=== PATIENT | female | born 1980 | race Hispanic/Latino ===

== ENCOUNTER 2018-09-06 12:07 | Emergency (ER) | payer OTHER ==
[2018-09-06 12:46] LABS: Absolute Lymphocytes (CBC) 1.3 K/uL (0.7-4.9); Basophils % 0.6 % (0-1.3); Eosinophils % 1.4 % (0-4.4); Hematocrit 41.5 % (36.0-45.0); Lymphocytes % 17.9 % (15.3-44.8); MPV 7.9 fL (7.6-11.3); Monocytes % 5.4 % (3.3-12.3); RBC Red Blood Cell Count 4.68 M/uL (3.86-4.86)
[2018-09-06 13:23] LABS: BUN Blood Urea Nitrogen 9 mg/dL (7-18); Bicarbonate 23 mmol/L (21-32); Glucose Level 100 mg/dL (74-106); HCG, Quantitative 2978 mIU/mL (1-3); Potassium 3.7 mmol/L (3.5-5.1); Sodium Level 141 mmol/L (136-145)
[2018-09-06] MEDS ORDERED: NA CHLORIDE 0.9% 1,000 ML ONE (13:54)
--- NOTE | 2018-09-06 14:53 | RAD REPORT ---
EXAM DESCRIPTION: US - Transvaginal OB - 09/06/2018 1:16 pm CLINICAL HISTORY: with vaginal bleeding COMPARISON: None. FINDINGS: The uterus 9 x 5 x 5 centimeters. The endometrial stripe measures 10 millimeters. A gesta tional sac is not seen. A 4 centimeter right ovarian cyst. Left ovary was not seen. An adnexal mass is not displayed at No significant free fluid IMPRESSION: Nonvisualization of a gestational sac within the endometrium with a small amount of free fluid. These findings could represent an early intrauterine in which the gestational sac is not se en. and even an ectopic can also result in this appearance. This all should be cor related clinically and with serial beta HCG levels. Followup endovaginal sonogram in 1 week recommend ed
[2018-09-06 15:00] LABS: Urine Blood 3+ (NEG); Urine Glucose NEGATIVE (NEG); Urine Protein TRACE (NEG); Urine Specific Gravity 1.015 (1.005-1.030)
--- NOTE | 2018-09-06 15:11 | ER ---
Nurse's Notes [facility] Name: Ryanne Trevizo Age: 38 yrs Sex: Female : 1980 Arrival Date: 09/06/2018 Time: 12:10 Bed 19 Private MD: Diagnosis: related conditions, unspecified, first trimester;Threatened Presentation: 09/06 12:21 Presenting complaint: Patient states: Vaginal bleeding that began 5 days ago. Pt ss reports she is approximately 10 weeks . Transition of care: patient was not received from another setting of care. Onset of symptoms was September 01, 2018. Risk Assessment: Do you want to hurt yourself or someone else? Patient reports no desire to harm self or others. Initial Sepsis Screen: Does the patient have a suspected source of infection? No. Patient's initial sepsis screen is negative. Care prior to arrival: None. 12:21 Method Of Arrival: Ambulatory ss 12:21 Acuity: GAUDENCIO 3 ss 12:30 Initial Sepsis Screen: Does the patient meet any 2 criteria? No. Patient's initial hj sepsis screen is negative. Does the patient have a suspected source of infection?. Triage Assessment: 12:30 General: Appears in no apparent distress. uncomfortable, Behavior is calm, cooperative, hj appropriate for age. Pain: Complains of pain in abdomen. : Reports vaginal bleeding that is with clots, heavy flow. 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 - Social history:: Smoking status: Patient/guardian denies using tobacco, Patient/guardian denies using alcohol. - Ebola Screening: : Patient negative for fever greater than or equal to 101.5 degrees Fahrenheit, and additional compatible Ebola Virus Disease symptoms Patient denies exposure to infectious person Patient denies travel to an Ebola-affected area in the 21 days before illness onset. Screenin:30 Abuse screen: Denies threats or abuse. Denies injuries from another. Nutritional hj screening: No deficits noted. Tuberculosis screening: No symptoms or risk factors identified. Fall Risk None identified. Assessment: 12:29 Reassessment: Assisted patient in ER lobby restroom. Changed into gown as underwear and ss sushant had blood that leaked through. Pt reports cramping and back pain before passing large blood clot in toilet. Pt is thankful for care received, is tearful. Respirations remain even and unlabored. 15:28 Obstetrical Assessment: N/A. hj Vital Signs: 12:30 BP 104 / 78; Pulse 96; Resp 18; Temp 98.3(O); Pulse Ox 100% on R/A; Weight 88 kg; hj Height 5 ft. 4 in. (162.56 cm); Pain 5/10; 13:30 BP 108 / 75; Pulse 92; Resp 18; Pulse Ox 100% on R/A; hj 14:30 BP 120 / 75; Pulse 89; Resp 18; Pulse Ox 100% on R/A; hj 15:27 BP 110 / 80; Pulse 90; Resp 18; Pulse Ox 100% on R/A; hj 12:30 Body Mass Index 33.30 (88.00 kg, 162.56 cm) hj Vitals: 15:25 Heart Tones . ED Course: 12:10 Patient arrived in ED. mr 12:21 Arm band placed on right wrist. ss 12:23 Ricardo Harp PA is PHCP. cp 12:23 Jerald Rivera MD is Attending Physician. cp 12:29 Triage completed. ss 12:30 Alex Sosa, LIVIA is Primary Nurse. hj 12:30 Patient has correct armband on for positive identification. Placed in gown. Bed in low hj position. Call light in reach. Side rails up X 1. 12:30 Initial lab(s) drawn, by me, sent to lab. T\T\S collected, blood band applied to patient. hj Inserted saline lock: 20 gauge in left antecubital area, using aseptic technique. Blood collected. 13:17 Transvaginal OB US In Process Unspecified. EDMS 14:42 Urine collected: clean catch specimen, blood tinged. 3 15:09 Jose Breen MD is Referral Physician. cp 15:25 No provider procedures requiring assistance completed. IV discontinued, intact, hj bleeding controlled, No redness/swelling at site. Pressure dressing applied. Administered Medications: 13:36 Drug: NS 0.9% 1000 ml Route: IV; Rate: 1 bolus; Site: left antecubital; hj 15:00 Follow up: IV Status: Completed infusion; IV Intake: 1000ml hj Point of Care Testing: Urine : 15:26 hCG Reading: Positive; hj Intake: 15:00 IV: 1000ml; Total: 1000ml. hj Outcome: 15:10 Discharge ordered by MD. cp 15:26 Discharged to home ambulatory, with family. hj 15:26 Condition: stable 15:26 Discharge instructions given to patient, family, Instructed on discharge instructions, follow up and referral plans. medication usage, Demonstrated understanding of instructions, follow-up care, medications, Prescriptions given X 1. 15:30 Patient left the ED. Signatures: Dispatcher [employer] Bailey Chaudhari mr Brooklynn Lindsay RN RN Alex Sosa RN RN Ricardo Harp PA PA cp [place], [place] [id number]
--- NOTE | 2018-09-06 15:11 | EDPHYS ---
Physician Documentation [facility] Name: Ryanne Trevizo Age: 38 yrs Sex: Female : 1980 Arrival Date: 09/06/2018 Time: 12:10 Bed 19 Private MD: ED Physician Jerald Rivera HPI: 09/06 12:35 This 38 yrs old Female presents to ER via Ambulatory with complaints of cp Vaginal Bleeding, + Preg <12wks. 12:35 The patient presents to the emergency department with abdominal pain, that started cp today, described as crampy, vaginal bleeding, with clots. course: care: none, Leakage of Fluid: none appreciated, Ultrasound: the patient has not had an ultrasound. Previous pregnancies: in previous pregnancies patient has had no complications. 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 - Social history:: Smoking status: Patient/guardian denies using tobacco, Patient/guardian denies using alcohol. - Ebola Screening: : Patient negative for fever greater than or equal to 101.5 degrees Fahrenheit, and additional compatible Ebola Virus Disease symptoms Patient denies exposure to infectious person Patient denies travel to an Ebola-affected area in the 21 days before illness onset. ROS: 12:45 Constitutional: Negative for body aches, chills, fever, poor PO intake. cp 12:45 Eyes: Negative for injury, pain, redness, and discharge. cp 12:45 ENT: Negative for drainage from ear(s), ear pain, sore throat, difficulty swallowing, difficulty handling secretions. 12:45 Cardiovascular: Negative for chest pain, palpitations. 12:45 Respiratory: Negative for cough, shortness of breath, wheezing. 12:45 Abdomen/GI: Positive for abdominal pain, of the right lower quadrant and left lower quadrant, Negative for vomiting, diarrhea, constipation, black/tarry stool, rectal bleeding. 12:45 : Positive for pelvic pain, vaginal bleeding. 12:45 Neuro: Negative for altered mental status, headache, syncope, weakness. 12:45 All other systems are negative. Exam: 12:55 Constitutional: The patient appears in no acute distress, alert, awake, non-toxic, well cp developed, well nourished, uncomfortable. 12:55 Head/Face: Normocephalic, atraumatic. cp 12:55 Eyes: Periorbital structures: appear normal, Conjunctiva: normal, no exudate, no injection, Sclera: no appreciated abnormality, Lids and lashes: appear normal, bilaterally. 12:55 ENT: External ear(s): are unremarkable, Nose: is normal, Mouth: Lips: moist, Oral mucosa: pink and intact, moist, Posterior pharynx: is normal, airway is patent, no erythema, no exudate. 12:55 Chest/axilla: Inspection: normal, Palpation: is normal, no crepitus, no tenderness. 12:55 Cardiovascular: Rate: normal, Rhythm: regular. 12:55 Respiratory: the patient does not display signs of respiratory distress, Respirations: normal, no use of accessory muscles, no retractions, no splinting, no tachypnea, labored breathing, is not present, Breath sounds: are clear throughout, no decreased breath sounds, no stridor, no wheezing. 12:55 Abdomen/GI: Inspection: abdomen appears normal, Bowel sounds: active, all quadrants, Palpation: soft, in all quadrants, moderate abdominal tenderness, in the suprapubic area, right lower quadrant and left lower quadrant, voluntary guarding, is elicited in the suprapubic area, right lower quadrant and left lower quadrant. 12:55 Back: pain, is absent, ROM is normal. 13:30 : Pelvic Exam: Speculum exam: mild bleeding, os that is closed, no tissue in cervix cp is seen, no tissue in vagina is seen. Vital Signs: 12:30 BP 104 / 78; Pulse 96; Resp 18; Temp 98.3(O); Pulse Ox 100% on R/A; Weight 88 kg; hj Height 5 ft. 4 in. (162.56 cm); Pain 5/10; 13:30 BP 108 / 75; Pulse 92; Resp 18; Pulse Ox 100% on R/A; hj 14:30 BP 120 / 75; Pulse 89; Resp 18; Pulse Ox 100% on R/A; hj 15:27 BP 110 / 80; Pulse 90; Resp 18; Pulse Ox 100% on R/A; hj 12:30 Body Mass Index 33.30 (88.00 kg, 162.56 cm) MDM: 12:25 Patient medically screened. 15:10 Data reviewed: vital signs, nurses notes, lab test result(s), radiologic studies, cp ultrasound. 15:10 Counseling: I had a detailed discussion with the patient and/or guardian regarding: the cp historical points, exam findings, and any diagnostic results supporting the discharge/admit diagnosis, lab results, radiology results, the need for outpatient follow up, an OB/Gyne specialist, to return to the emergency department if symptoms worsen or persist or if there are any questions or concerns that arise at home. Response to treatment: the patient's symptoms have markedly improved after treatment, VSS. Pain markedly improved and bleeding improved. Low suspicion for ectopic . Will discharge to home for continued monitoring. 09/06 12:26 Order name: Abo/rh Typing 09/06 12:26 Order name: Basic Metabolic Panel; Complete Time: 13:31 09/06 13:30 Interpretation: Normal except: CL 110. 09/06 12:26 Order name: CBC with Diff; Complete Time: 13:31 09/06 13:30 Interpretation: Normal except: PLT 412; JO% 74.7. 09/06 12:26 Order name: Quantitative Hcg; Complete Time: 13:31 09/06 13:30 Interpretation: HCGQ 2978; Reviewed. 09/06 12:26 Order name: ABO/RH typing; Complete Time: 13:58 EDMS 09/06 13:58 Interpretation: Reviewed. 09/06 14:48 Order name: Urine Dipstick--Ancillary (enter results); Complete Time: 12:34 bd 09/06 12:26 Order name: IV Saline Lock; Complete Time: 12:30 09/06 12:26 Order name: Labs collected and sent; Complete Time: 12:34 09/06 12:26 Order name: NPO; Complete Time: 12:30 09/06 12:26 Order name: Urine Dipstick-Ancillary (obtain specimen); Complete Time: 14:39 cp 09/06 12:26 Order name: Urine Test (obtain specimen); Complete Time: 14:38 cp 09/06 12:39 Order name: Transvaginal OB US; Complete Time: 15:01 09/06 14:48 Order name: Urine --Ancillary (enter results); Complete Time: 12:34 bd 09/06 12:29 Order name: Pelvic Exam Setup; Complete Time: 12:41 09/06 12:45 Order name: Labs - recollect needed; Complete Time: 12:54 bd Administered Medications: 13:36 Drug: NS 0.9% 1000 ml Route: IV; Rate: 1 bolus; Site: left antecubital; 15:00 Follow up: IV Status: Completed infusion; IV Intake: 1000ml Point of Care Testing: Urine : 15:26 hCG Reading: Positive; Disposition: 15:51 Co-signature as Attending Physician, Jerald Rivera MD. rn Disposition: 09/06/18 15:10 Discharged to Home. Impression: related conditions, unspecified, first trimester, Threatened . - Condition is Stable. - Discharge Instructions: Threatened Miscarriage, Vaginal Bleeding During , First Trimester, Pelvic Rest. - Prescriptions for Vitamin 27- 0.8 mg Oral Tablet - take 1 tablet by ORAL route once daily; 60 tablet. - Medication Reconciliation Form, Thank You Letter, Antibiotic Education, Prescription Opioid Use form. - Follow up: Jose Breen MD; When: 48 Hours; Reason: Repeat Beta-HCG (48 Hours). - Problem is new. - Symptoms have improved. Signatures: Dispatcher [employer] [facility] Mariya Kerr Roman, MD MD rn Joaquin, Henry, RN RN hj Page, Corey, PA PA cp Corrections: (The following items were deleted from the chart) 15:30 15:10 09/06/2018 15:10 Discharged to Home. Impression: related conditions, hj unspecified, first trimester; Threatened . Condition is Stable. Forms are Medication Reconciliation Form, Thank You Letter, Antibiotic Education, Prescription Opioid Use. Follow up: Jose Breen; When: 48 Hours; Reason: Repeat Beta-HCG (48 Hours). Problem is new. Symptoms have improved. cp
== END 2018-09-06 15:30 | disposition home or self-care (01) ==
LOC: ER 12:07
DX: O20.0 Threatened abortion (principal); Z3A.10 10 weeks gestation of pregnancy
CPT/HCPCS: 36415; 76817; 80048; 81003; 81025; 84702; 85025; 86900; 86901; 88305; 96360; 99284; J7030

== ENCOUNTER 2019-08-28 05:02 | Emergency (ER) | payer OTHER ==
--- OUTSIDE RECORDS SUMMARY | 2019-08-28 05:05 | XMS REPORT | Continuity of Care Document ---
:1980 Author Organization [facility] t Address [address] [place] [address] Care Team Providers Name Role Phone Ulises Angelo Attending Clinician Abel MANZANO, F Attending Clinician Javed Stephenson RN Attending Clinician Unavailable Doctor Unassigned, Name Attending Clinician Unavailable Abel MANZANO, F Admitting Clinician Problems This patient has no known problems. Allergies, Adverse Reactions, Alerts This patient has no known allergies or adverse reactions. Medications This patient has no known medications. Procedures This patient has no known procedures. 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 [id number] [facility] [id number] MATERNAL [id number] & CHILD [address] [facility] 2019-08-09 2019-08-09 Telephone SOLANGE Chamorro [id number] 00:00:00 00:00:00 Agnieszka Montgomery LEATHER STRIPPING MACHINE OPERATOR [id number] [facility] [id number] MATERNAL [id number] & CHILD [address] [facility] 2019-08-05 2019-08-06 [facility] JOY Roman [id number] 04:41:00 16:40:00 Encounter Jd Albarran [facility] [id number] [facility]PITAL [id number] 2019-08-05 2019-08-05 Nurse Javed HAMILTON [id number] 00:00:00 00:00:00 Triage LV Stephenson [id number] [facility] [id number] 2019-08-04 2019-08-04 Routine Pedro Pablo [facility] [id number] 09:27:04 10:07:56 Roshunda R LEATHER STRIPPING MACHINE OPERATOR [id number] Visit [facility] [id number] MATERNAL [id number] & CHILD [address] [place] [address] 2019-08-04 2019-08-04 Orders Doctor JOY [id number] 00:00:00 00:00:00 Only UnassignedLV [id number] [place] [facility] [id number] [id number] Results This patient has no known results.
--- OUTSIDE RECORDS SUMMARY | 2019-08-28 05:05 | XMS REPORT | Summary of Care ---
:1980 Author Organization [facility] Address [address] [place] [address] Care Team Providers Name Role Phone Agnieszka Chamorro TYRE RETREADER Primary Care Provider Reason for Visit Reason Comments Care Encounter Details Date Type Department Care Team Description 06/14/2019 Routine [facility]- Agnieszka Chamorro upervision of high-risk of elderly multigravida (Primary Dx); Visit JOJO Oseguera AMA (advanced maternal age) multigravida 35+, first trimester; [address] [place] [address]; [place], [place] Need for Tdap vaccination; [id number] [place], [place] Obesity in [phone] Allergies No Known Allergiesdocumented as of this encounter (statuses as of 06/14/2019) Medications Medication Sig Dispensed Refills Start Date End Date Status vit Take 1 Packet by 30 Each 6 01/17/2019 Active 21-spaz-nnzdi-dha mouth daily. (SELECT-OB + DHA) 29 mg iron-1 mg -250 mg combo packIndications: Supervision of high-risk of elderly multigravida documented as of this encounter (statuses as of 06/14/2019) Active Problems Problem Noted Date Exposure to strep throat 03/01/2019 Rubella non-immune status, antepartum 01/06/2019 Overview: Address in Supervision of high-risk of elderly multigra sudhir 01/04/2019 AMA (advanced maternal age) multigravida 35+, first tr imester 01/04/2019 Obesity in 01/04/2019 Multiparity 01/04/2019 Estimated Date of Delivery Comments Yes 08/27/2019 Based on Ultrasound, FHT: 164, Transverse Presentation, Placen ta too early to evaluate, LIBBY: WNL documented as of this encounter (statuses as of 06/14/2019) Immunizations Name Administration Dates Next Due Influenza Virus Vaccine Quad .5 mL IM 6+ MO 02/01/2019 TDAP (ADACEL) VACCINE 06/14/2019 documented as of this encounter Social History Tobacco Use Types Packs/Day Years Used Date Never Smoker Smokeless Tobacco: Never Used Alcohol Use Drinks/Week oz/Week Comments Never Alcohol Habits Answer Date Recorded How often do you have a drink containing alcohol? Never 09/09/2018 How many drinks containing alcohol do you have on a typical Not asked day when you are drinking? How often do you have six or more drinks on one occasion? No t asked Estimated Date of Delivery Comments Yes 08/27/2019 Based on Ultrasound, FHT: 164, Transverse Presentation, Placen ta too early to evaluate, LIBBY: WNL Sex Assigned at Date Recorded Not on file Job Start Date Occupation Industry Not on file Not on file Not on file Travel History Travel Start Travel End No recent travel history available. documented as of this encounter Last Filed Vital Signs Vital Sign Reading Time Taken Comments Blood Pressure 123/74 06/14/2019 1:06 PM CDT Pulse 89 06/14/2019 1:06 PM CDT Temperature 36.1 C (97 F) 06/14/2019 1:06 PM CDT Respiratory Rate 16 06/14/2019 1:06 PM CDT Oxygen Saturation - - Inhaled Oxygen Concentration - - Weight 101.4 kg (223 lb 8 oz) 06/14/2019 1:06 PM CDT Height 162.6 cm (5' 4") 06/14/2019 1:06 PM CDT Body Mass Index 38.36 06/14/2019 1:06 PM CDT documented in this encounter Progress Notes Agnieszka Chamorro, JOJO - 06/14/2019 12:45 PM CDT Chief complaint: Chief Complaint Patient presents with Care HPI CC: Follow Up Visit Ryanne Trevizo is a 38 year old, , or [place] female. Patient's last menstrual period was 11/04/2018 (approximate). She is 29w3d with an intrauterine . Her estimated date of delivery is 08/27/2019, by Ultrasound. She has no complaints today. She reports +FM and d enies contractions, LOF and bleeding today. Will review labs and f/u as needed. OB/ER, PIH, PTL andmovement precautions given. Patient denies current or past physical, sexual or emotional abuse. Histories OB History Para Term AB Living 6 3 3 2 3 SAB TAB Ectopic Multiple Live Births 1 1 3 # Outcome Date GA Lbr Prabhu/2nd Weight Sex Delivery Anes PTL Lv 6 Current 5 SAB 08/2018 4 Term 10/26/17 38w0d 7 lb (3.175 kg) M VAGINAL LANI 3 Term 07/16/06 38w0d 7 lb (3.175 kg) M VAGINAL LANI 2 TAB 2005 1 Term 04/30/01 38w0d 8 lb (3.629 kg) F VAGINAL LANI Past Medical History: Diagnosis Date gestional diabetes 2007 Family History Problem Relation Age of Onset No Significant Medical Problems Mother Diabetes Maternal Aunt Diabetes Maternal Uncle Heart Maternal Grandfather Diabetes Maternal Grandfather Cancer Paternal Grandmother Family Status Relation Name Status Mo Alive Fa Alive Sis Alive Bro Alive MAunt Alive MUnc Alive PAunt Alive PUnc Alive MGMo Alive MGFa PGMo PGFa No past surgical history on file. Social History Socioeconomic History Marital status: Single Spouse name: Not on file Number of children: Not on file Years of education: Not on file Highest education level: Not on file Occupational History Not on file Social Needs Financial resource strain: Not on file Food insecurity: Worry: Not on file Inability: Not on file Transportation needs: Medical: Not on file Non-medical: Not on file Tobacco Use Smoking status: Never Smoker Smokeless tobacco: Never Used Substance and Sexual Activity Alcohol use: Never Frequency: Never Drug use: Never Sexual activity: Yes Partners: Male control/protection: None Comment: last sexual intercourse 01/03/2019 Lifestyle Physical activity: Days per week: Not on file Minutes per session: Not on file Stress: Not on file Relationships Social connections: Talks on phone: Not on file Gets together: Not on file Attends shinto service: Not on file Active member of club or organization: Not on file Attends meetings of clubs or organizations: Not on file Relationship status: Not on file Intimate partner violence: Fear of current or ex partner: Not on file Emotionally abused: Not on file Physically abused: Not on file Forced sexual activity: Not on file Other Topics Concern Not on file Social History Narrative Congregation preference none. Patient lives with fiance and child. Social History Substance and Sexual Activity Sexual Activity Yes Partners: Male control/protection: None Comment: last sexual intercourse 01/03/2019 Labs Labs are pending. Radiology No new radiology. Allergies Ryanne has No Known Allergies. Medications Ryanne has a current medication list which includes the following prescription(s): vit 81-fzym-ixltj-dha. Review of Systems Eyes: Negative for visual disturbance. Cardiovascular: Negative for leg swelling. Gastrointestinal: Negative for abdominal pain, nausea and vomiting. Genitourinary: Negative for vaginal bleeding, vaginal discharge and pelvic pain. Neurological: Negative for headaches. BP 123/74 (BP Location: Right arm, Patient Position: Sitting, BP CUFF SIZE: Adult Medium) | Pulse 89 | Temp 36.1 C (97 F) (Oral) | Resp 16 | Ht 5' 4" (1.626 m) | Wt 223 lb 8 oz (101.4 kg) | LMP 11/04/2018 (Approximate) | BMI 38.36 kg/m Pregravid BMI: 34.1 Physical Exam PHYSICAL: General Exam: Neurological: Normal Abdomen: Normal Extremities: Normal Pelvic Exam: Uterus: 32cm Weeks Assessment/Plan Supervision of high-risk of elderly multigravida (primary encounter diagnosis) AMA (advanced maternal age) multigravida 35+, first trimester Multiparity Comment: Routine Visit Plan: POCT URINALYSIS W SPECIFIC GRAVITY, HIV 1/2 AG-AB WITH REFLEX, GALV ONLY - SYPHILIS IGG/IGM Denies zika virus risk, signs and symptoms such as fever,rash,joint pain, conjunctivitis (red eyes), muscle pain, headaches; outside [place] travel to areas affected by zika, and FOB exposure to zika.Educated on use of mosquito repellent. Need for Tdap vaccination Comment: per protocol Plan: TDAP (ADACEL) IMMUNIZATION Obesity in Comment: BMI: 38.36 Plan: Patient encouraged to limit weight gain and advised to eat healthy diet, fruits, vegetables, increased fiber and water intake and protein low in fat. Encouraged exercise for 30 min everyday; begin regimen with caution to prevent injury. Encouraged to decrease BMI to <25. Return to clinic in 2 weeks via tele health. Discussed treatment options. Medications as ordered. Reviewed patient instructions and provided printed copy. This visit did not involve counseling and coordination that comprised more than 50% of the visit time. JOJO Patricio 06/14/2019 1:47 PM Camilla Colmenares RN - 06/14/2019 12:45 PM CDTPatient provided with 28 weeks packet; stressed the importance of the kick count of 10 x within 2 hours; patient verbalized understanding. Tdap given IM to right deltoid per aseptic tech; site massaged; band-aid applied; tolerated well; VIS given and reviewed with patient at this time. Shared decision plan completed today. Reviewed s/s of labor. PHQ2 done at this time. Patient denies any complications at this time. documented in this encounter Plan of Treatment Date Type Specialty Care Team Description 06/28/2019 Routine Visit [facility] Ulises Chamorro FNP [address] [place], [place] [address] [phone] Name Type Priority Associated Diagnoses Date/Ti me HIV 1/2 AG-AB WITH LAB Routine Supervision of high-ri sk 06/14/2019 1:07 PM CDT REFLEX of elderly multigravida GALV ONLY - SYPHILIS LAB Routine Supervision of high- risk 06/14/2019 1:07 PM CDT IGG/IGM of elderly multigravida Health Maintenance Due Date Last Done Comments DTaP,Tdap,and Td Vaccines (1 - 09/01/2019 P ostponed from 1993 Tdap) (Alternative Major delines) PAP SMEAR 09/09/2021 09/09/2018 INFLUENZA VACCINE Completed 02/01/2019 PNEUMOCOCCAL 0-64 YEARS COMBINED Aged Out No longer eligible based on SERIES patient's age to complete this topic documented as of this encounter Procedures Procedure Name Priority Date/Time Associated Diagnosis Comme nts POCT URINALYSIS Routine 06/14/2019 1:49 Supervision of Result s for this PM CDT high-risk procedur e are in of elderly the results multigravida section. TDAP (ADACEL) Routine 06/14/2019 1:08 Need for Tdap IMMUNIZATION PM CDT vaccination documented in this encounter Results POCT URINALYSIS W SPECIFIC GRAVITY (06/14/2019 1:49 PM CDT) Pathologist Sig nature POCT U SP GRAV . 1.005 - 1.025 mg/dl POCT PH U . 5 - 8 mg/dl POCT U LEUK EST . Negative - Negative POCT U NIT . Negative - Negative POCT U PROT 1+ Negative - Negative POCT U GLU negative Negative - Negative POCT U KETONE . Negative - Negative POCT U UROBILI . 0.2 - 1 mg/dl POCT U BILI . Negative - Negative POCT U BLD . Negative - Negative POCT U COLOR POCT U APPEAR Specimen Urine - URINE, CLEAN CATCH documented in this encounter Visit Diagnoses Diagnosis Supervision of high-risk of rodri flower multigravida - Primary AMA (advanced maternal age) multigravida 35+, first trimester [place]ip[place] Need for Tdap vaccination Need for prophylactic vaccination with c ombined cybhpxocxq-hayfvxk-rbsxrrlfv (DTP) vaccine Obesity in Obesity complicating , childbir th, or the puerperium, unspecified as to episode of care or not applicable documented in this encounter Insurance Payer Benefit Plan / Subscriber ID Effective Dates Phone Addre ss Type Group [facility] xxxxxxxxx 2019-[facility] Medicaid COMM PLAN - t MANAGED MEDICAID [id number] 1 documented as of this encounter Advance Directives Name Relationship Healthcare Agent Relationship Co mmunication [employer] [place] Life Partner Primary healthcare agent
--- OUTSIDE RECORDS SUMMARY | 2019-08-28 05:06 | XMS REPORT | Summary of Care ---
:1980 Author Organization [facility] Address [address] [place] [address] Care Team Providers Name Role Phone Agnieszka Chamorro [facility] Primary Care Provider Reason for Visit Reason Comments Appointment Tele Health Visit Encounter Details Date Type Department Care Team Description 07/14/2019 Telephone [facility]- Agnieszka Chamorro, Maxime pointment (Tele [facility] Visit ) [address] [facility] [address] [place], [place] [phone] Allergies No Known Allergiesdocumented as of this encounter (statuses as of 07/14/2019) Medications Medication Sig Dispensed Refills Start Date End Date Status vit Take 1 Packet by 30 Each 6 01/17/2019 Active 84-dgow-yqwbt-dha mouth daily. (SELECT-OB + DHA) 29 mg iron-1 mg -250 mg combo packIndications: Supervision of high-risk of elderly multigravida documented as of this encounter (statuses as of 07/14/2019) Active Problems Problem Noted Date Exposure to [...] as of this encounter (statuses as of 07/14/2019) Immunizations Name Administration Dates Next Due Influenza [...] of this encounter Last Filed Vital Signs Not on filedocumented in this encounter Plan of Treatment Date Type Specialty Care Team Description 08/02/2019 Barrel Burner Visit Maternal Medicine Health Maintenance Due Date Last Done Comments PAP SMEAR 09/09/2021 09/09/2018 DTaP,Tdap,and Td Vaccines (2 - Td) 06/13/2029 06/14/2019 INFLUENZA VACCINE Completed 02/01/2019 PNEUMOCOCCAL 0-64 YEARS COMBINED Aged Out No longer eligible based on SERIES patient's age to complete this topic documented as of this encounter Results Not on filedocumented in this encounter Insurance Payer Benefit Plan / Subscriber ID Effective Dates Phone Addre ss Type Group [facility] xxxxxxxxx 2019-[facility] Medicaid COMM PLAN - t MANAGED MEDICAID documented as of this encounter Advance Directives Name Relationship Healthcare Agent Relationship Co mmunication Theresa Duncan Life Partner Primary healthcare agent
--- OUTSIDE RECORDS SUMMARY | 2019-08-28 05:06 | XMS REPORT | Summary of Care ---
:1980 Author Organization [facility] Address [address] [place] [address] Care Team Providers Name Role Phone Agnieszka Chamorro Primary Care Provider Reason for Referral (Routine) Status Reason Specialty Diagnoses / Referred By Referred To Procedures Contact Contact New Request Maternal Diagnoses Supervision of high-risk of elderly multigravida Karime Chamorro Procedures CONSULT MATERNAL MEDICINE ULTRASOUND Preferred Location: JOJO Molina [address] [place] [address] Reason for Visit Reason Comments ROUTINE VISIT Tele Health Visit Encounter Details Date Type Department Care Team Description 06/28/2019 Telemedicine Visit [facility]- Agnieszka Chamorro Supervision of high-risk of elderly multigravida (Primary Dx); JOJO Oseguera AMA (advanced maternal age) multigravida 35+, first trimester; [address] [place] [address]; [place] [address] [place], [place] [phone] [address] Allergies No Known Allergiesdocumented as of this encounter (statuses as of 06/28/2019) Medications Medication Sig Dispensed Refills Start Date End Date Status vit Take 1 Packet by 30 Each 6 01/17/2019 Active 32-fdbn-ijioo-dha mouth daily. (SELECT-OB + DHA) 29 mg iron-1 mg -250 mg combo packIndications: Supervision of high-risk of elderly multigravida documented as of this encounter (statuses as of 06/28/2019) Active Problems Problem Noted Date Exposure to [...] as of this encounter (statuses as of 06/28/2019) Immunizations Name Administration Dates Next Due Influenza [...] Signs Not on filedocumented in this encounter Progress Notes Agnieszka Chamorro FNP - 06/28/2019 12:45 PM CDT Chief complaint: Chief Complaint Patient presents with ROUTINE VISIT Tele Health Visit TELEHEALTH NOTE Verbal consent obtained from Patient: Ryanne Trevizo and Care Provider: JOJO Patricio due to the COVID-19 pandemic for telehealth services provided below. Communication with patient was conducted via Telephone due to patient unable to obtain video call option. Location of Patient: Workplace Location of Provider: home Date of Service: 06/28/2019 Chief Complaint: Visit via Tele Health HPI: Ryanne Trevizo is a 38 year old female with Past Medical History: Diagnosis Date gestional diabetes 2007 ROS See Note TELEHEALTH EXAM Constitutional: Alert and no distress Respiratory: Breathing comfortably Neurology: Answers questions appropriately Psychological: Affect Normal After visit summary (AVS ) documentation will be available through [employer] [employer] for this encounter. A total of 15 minutes was spent on the Telephone with the patient. Agnieszka Chamorro, SOFTWARE ENGINEERING PROJECT MANAGER HPI CC: Follow Up Visit Ryanne Trevizo is a 38 year old, , or [place] female. Patient's last menstrual period was 11/04/2018 (approximate). She is 31w3d with an intrauterine . Her estimated date of delivery is 08/27/2019, by Ultrasound. She has no complaints today. She reports +FM and d enies contractions, LOF and bleeding today.Patient denies current or past physical, sexual or [...] file Gets together: Not on file Attends church service: Not on file Active member of [...] Concern Not on file Social History Narrative Lutheran preference none. Patient lives with fiance and child. Social History Substance and Sexual Activity Sexual Activity Yes Partners: Male control/protection: None Comment: last sexual intercourse 01/03/2019 Labs No new labs Radiology No new radiology. Allergies Ryanne has No Known Allergies. Medications Ryanne has a current medication list which includes the following prescription(s): vit 56-cowx-omzpi-dha. Review of Systems LMP 11/04/2018 (Approximate) Pregravid BMI: 34.1 Physical Exam See Tele Health Note Assessment/Plan Supervision of high-risk of elderly multigravida (primary encounter diagnosis) AMA (advanced maternal age) multigravida 35+, first trimester Multiparity Comment: Routine Visit Plan: CONSULT MATERNAL MEDICINE ULTRASOUND Preferred Location: [place] Denies zika virus risk, signs and symptoms such as fever,rash,joint pain, conjunctivitis (red eyes), muscle pain, headaches; outside [place] travel to areas affected by zika, and FOB exposure to zika.Educated on use of mosquito repellent. Obesity in Comment: See BMI Plan: Patient encouraged to limit weight gain and advised to eat healthy diet, fruits, vegetables, increased fiber and water intake and protein low in fat. Encouraged exercise for 30 min everyday; begin regimen with caution to prevent injury. Encouraged to decrease BMI to <25. Return to clinic in 2 weeks. Discussed treatment options. Medications as ordered. Reviewed patient instructions and provided printed copy. This visit did not involve counseling and coordination that comprised more than 50% of the visit time. JOJO Patricio 06/28/2019 12:43 PM documented in this encounter Plan of Treatment Date Type Specialty Care Team Description 07/14/2019 Telemedicine Visit [facility]ell[facility] Shirley Chamorro FNP [address] [place] [address] [phone] Health Maintenance Due Date Last Done Comments PAP SMEAR 09/09/2021 09/09/2018 DTaP,Tdap,and Td Vaccines (2 - Td) 06/13/2029 06/14/2019 INFLUENZA VACCINE Completed 02/01/2019 PNEUMOCOCCAL 0-64 YEARS COMBINED Aged Out No longer eligible based on SERIES patient's age to complete this topic documented as of this encounter Results Not on filedocumented in this encounter Visit Diagnoses Diagnosis Supervision of high-risk of rodri flower multigravida - Primary AMA (advanced maternal age) multigravida 35+, first trimester [place] Obesity in Obesity complicating , childbir th, or the puerperium, unspecified as to episode of care or not applicable documented in this encounter Insurance Payer Benefit Plan / Subscriber ID Effective Dates Phone Addre ss Type Group [facility] xxxxxxxxx 2019-[place] Medicaid COMM PLAN - t MANAGED MEDICAID [id number] 1 documented as of this encounter Advance Directives Name Relationship Healthcare Agent Relationship Co mmunication Theresa Duncan Life Partner Primary healthcare agent
--- OUTSIDE RECORDS SUMMARY | 2019-08-28 05:07 | XMS REPORT | Summary of Care ---
:1980 Author Organization [facility] Address [address] [place] [address] Care Team Providers Name Role Phone Agnieszka Chamorro [facility] Primary Care Provider Reason for Visit Reason Comments ULTRASOUND (Routine) Status Reason Specialty Diagnoses / Referred By Referred To Procedures Contact Contact Closed Maternal Diagnoses Supervision of high-risk of elderly multigravida Agnieszka Chamorro Medicine Procedures CONSULT MATERNAL MEDICINE ULTRASOUND Preferred Location: JOJO Oseguera [address] [place] [address] Encounter Details Date Type Department Care Team Description 08/02/2019 Pediatric Nephrologist Visit [facility] Jerry Cutler erly multigravida with antepartum condition or complication; Ultrasound- Vidal Bernabe MD Obesity complicating in third trimester [address] [place] [address] [facility] [place], [place] [id number] [place], [place] [phone] [id number] Allergies No Known Allergiesdocumented as of this encounter (statuses as of 08/02/2019) Medications Medication Sig Dispensed Refills Start Date End Date Status vit Take 1 Packet by 30 Each 6 01/17/2019 Active 18-etmw-hyqxx-dha mouth daily. (SELECT-OB + DHA) 29 mg iron-1 mg -250 mg combo packIndications: Supervision of high-risk of elderly multigravida documented as of this encounter (statuses as of 08/02/2019) Active Problems Problem Noted Date Exposure to [...] as of this encounter (statuses as of 08/02/2019) Immunizations Name Administration Dates Next Due Influenza [...] Travel End No recent travel history available. COVID-19 Exposure Response Date Recorded In the last month, have you been in contact with No / Unsure 08/02/2019 11:33 AM CDT someone who was confirmed or suspected to have Coronavirus / COVID-19? documented as of this encounter Last Filed Vital Signs Not on filedocumented in this encounter Plan of Treatment Date Type Specialty Care Team Description 08/04/2019 Routine Visit [facility] Satellites Ulises Chamorro, SENIOR ORACLE APPLICATIONS DEVELOPER [address] [place] [address] [phone] Health Maintenance Due Date Last Done Comments PAP SMEAR 09/09/2021 09/09/2018 DTaP,Tdap,and Td Vaccines (2 - Td) 06/13/2029 06/14/2019 INFLUENZA VACCINE Completed 02/01/2019 PNEUMOCOCCAL 0-64 YEARS COMBINED Aged Out No longer eligible based on SERIES patient's age to complete this topic documented as of this encounter Results Not on filedocumented in this encounter Visit Diagnoses Diagnosis Elderly multigravida with antepartum con dition or complication Obesity complicating in third trimester Obesity complicating , childbir th, or the puerperium, antepartum condition or complication documented in this encounter Insurance Payer Benefit Plan / Subscriber ID Effective Dates Phone Addre ss Type Group [facility] xxxxxxxxx 2019-[place] Medicaid COMM PLAN - t MANAGED MEDICAID [id number] 1 documented as of this encounter Advance Directives Name Relationship Healthcare Agent Relationship Co mmunication Theresa Duncan Life Partner Primary healthcare agent
--- OUTSIDE RECORDS SUMMARY | 2019-08-28 05:07 | XMS REPORT | Summary of Care ---
:1980 Author Organization [facility] [place] Address [address] [place] [address] Care Team Providers Name Role Phone Agnieszka Chamorro OTHER SPORTS COACH OR INSTRUCTOR Primary Care Provider Reason for Visit Reason Comments Care Encounter Details Date Type Department Care Team Description 07/28/2019 Routine [facility]- Agnieszka Chamorro upervision of high-risk of elderly multigravida (Primary Dx); Visit JOJO Oseguera AMA (advanced maternal age) multigravida 35+, first trimester; [address]; [place] [address] [place], [place] [phone] [address] Allergies No Known Allergiesdocumented as of this encounter (statuses as of 07/28/2019) Medications Medication Sig Dispensed Refills Start Date End Date Status vit Take 1 Packet by 30 Each 6 01/17/2019 Active 00-adzk-yrrim-dha mouth daily. (SELECT-OB + DHA) 29 mg iron-1 mg -250 mg combo packIndications: Supervision of high-risk of elderly multigravida documented as of this encounter (statuses as of 07/28/2019) Active Problems Problem Noted Date Exposure to [...] as of this encounter (statuses as of 07/28/2019) Immunizations Name Administration Dates Next Due Influenza [...] been in contact with No / Unsure 07/28/2019 7:52 AM CDT someone who was confirmed or suspected to have Coronavirus / COVID-19? documented as of this encounter Last Filed Vital Signs Vital Sign Reading Time Taken Comments Blood Pressure 118/78 07/28/2019 7:54 AM CDT Pulse 80 07/28/2019 7:54 AM CDT Temperature 36.6 C (97.8 F) 07/28/2019 7:54 AM CDT Respiratory Rate 16 07/28/2019 7:54 AM CDT Oxygen Saturation - - Inhaled Oxygen Concentration - - Weight 105.9 kg (233 lb 8 oz) 07/28/2019 7:54 AM CDT Height 162.6 cm (5' 4") 07/28/2019 7:54 AM CDT Body Mass Index 40.08 07/28/2019 7:54 AM CDT documented in this encounter Progress Notes Agnieszka Chamorro, JOJO - 07/28/2019 8:45 AM CDT Chief complaint: Chief Complaint Patient presents with Care HPI CC: Follow Up Visit Ryanne Trevizo is a 39 year old, , or [place] female. Patient's last menstrual period was 11/04/2018 (approximate). She is 35w5d with an intrauterine . Her estimated date of delivery is 08/27/2019, by Ultrasound. She has no complaints today. She reports +FM and d enies contractions, LOF and bleeding today. Reviewed OB/ER, PIH, labor and movement precautions. Encouraged patient to go to [facility] for any signs and symptoms of labor (regular contractions, LOF, vaginalbleeding or decrease movement. Patient denies current or past physical, sexual [...] (3.175 kg) M VAGINAL LANI 2 TAB 2004 1 Term 04/30/01 38w0d 8 lb (3.629 [...] file Gets together: Not on file Attends quaker service: Not on file Active member of [...] Concern Not on file Social History Narrative Adventist preference none. Patient lives with fiance and child. Social History Substance and Sexual Activity Sexual Activity Yes Partners: Male control/protection: None Comment: last sexual intercourse 01/03/2019 Labs Labs are pending. Radiology No new radiology. Allergies Ryanne has No Known Allergies. Medications Ryanne has a current medication list which includes the following prescription(s): vit 62-obfu-dmyyy-dha. Review of Systems Constitutional: Negative for activity change, appetite change, fatigue, unexpected weight change, weight gain and weight loss. HENT: Negative for sore throat. Eyes: Negative for visual disturbance. Respiratory: Negative for cough and shortness of breath. Breasts: Negative for discharge, mass, pain and unequal size. Cardiovascular: Negative for chest pain, palpitations and leg swelling. Gastrointestinal: Negative. Negative for abdominal pain, anal bleeding, blood in stool, constipation, diarrhea, nausea, rectal pain and vomiting. Genitourinary: Negative for bladder incontinence, dysuria, urgency, flank pain, vaginal bleeding, vaginal discharge, genital sores, vaginal pain and pelvic pain. Skin: Negative for color change and rash. Neurological: Negative. Negative for dizziness, syncope and headaches. Psychiatric/Behavioral: Negative for confusion, self-injury and sleep disturbance. The patient is not nervous/anxious. Hematological: Negative for cold intolerance and heat intolerance. Endocrine: Negative for hair loss, cold intolerance, heat intolerance, weight gain and weight loss. BP 118/78 (BP Location: Right arm, Patient Position: Sitting, BP CUFF SIZE: Adult Medium) | Pulse 80 | Temp 36.6 C (97.8 F) (Oral) | Resp 16 | Ht 5' 4" (1.626 m) | Wt 233 lb 8 oz (105.9 kg) |LMP 11/04/2018 (Approximate) | BMI 40.08 kg/m Pregravid BMI: 34.1 Physical Exam PHYSICAL: General Exam: Neurological: Normal Abdomen: Normal Extremities: Normal Pelvic Exam: Vagina: Child Welfare Counselor present for the exam: Camilla Colmenares RN Cervix: 2/50/-3 Membrane status: Intact Uterus: 38cm Weeks Assessment/Plan Supervision of high-risk of elderly multigravida (primary encounter diagnosis) AMA (advanced maternal age) multigravida 35+, first trimester [address] Comment: Routine Visit Plan: CBC WITH DIFF, GROUP B STREPTOCOCCUS BY PCR, CBC WITH DIFFERENTIAL, POCT URINALYSIS W SPECIFIC GRAVITY Denies zika virus risk, signs and symptoms such as fever,rash,joint pain, conjunctivitis (red eyes), muscle pain, headaches; outside [place] travel to areas affected by zika, and FOB exposure to zika. Educated on use of mosquito repellent. Covid x12 screening done, screening results are negative. Reviewed OB/ER, PIH, labor and movement precautions. Encouraged patient to go to [facility] for any signs and symptoms of labor (regular contractions, LOF, vaginal bleeding or decrease movement. Obesity in Comment: BMI: 40.08 Plan: Patient encouraged to limit weight gain and advised to eat healthy diet, fruits, vegetables, increased fiber and water intake and protein low in fat. Encouraged exercise for 30 min everyday; begin regimen with caution to prevent injury. Encouraged to decrease BMI to <25. Return to clinic in 4 weeks. Discussed treatment options. Medications as ordered. Reviewed patient instructions and provided printed copy. This visit did not involve counseling and coordination that comprised more than 50% of the visit time. JOJO Patricio 07/28/2019 8:34 AM documented in this encounter Plan of Treatment Date Type Specialty Care Team Description 08/02/2019 Machine Setter Visit Maternal Medicine 08/04/2019 Routine Visit OB Satellites Agnieszka Chamorro FNP [address] [address] [phone] Name Type Priority Associated Diagnoses Date/Ti me CBC WITH DIFF LAB Routine Supervision of high-risk 7:51 AM of elderly CDT multigravida GROUP B STREPTOCOCCUS BY LAB Routine Supervision of h igh-risk 07/28/2019 7:51 AM PCR of elderly CDT multigravida CBC WITH DIFFERENTIAL LAB Routine Supervision of high -risk 07/28/2019 7:51 AM of elderly CDT multigravida Health Maintenance Due Date Last Done Comments PAP SMEAR 09/09/2021 09/09/2018 DTaP,Tdap,and Td Vaccines (2 - Td) 06/13/2029 06/14/2019 INFLUENZA VACCINE Completed 02/01/2019 PNEUMOCOCCAL 0-64 YEARS COMBINED Aged Out No longer eligible based on SERIES patient's age to complete this topic documented as of this encounter Procedures Procedure Name Priority Date/Time Associated Diagnosis Comme nts POCT URINALYSIS Routine 07/28/2019 7:53 AM Supervision of Res ults for this CDT high-risk of whitney jaramilloe are in elderly multigravida the res ults section. documented in this encounter Results POCT URINALYSIS W SPECIFIC GRAVITY (07/28/2019 7:53 AM CDT) Pathologist Sig nature POCT U SP GRAV . 1.005 - 1.025 mg/dl POCT PH U . 5 - 8 mg/dl POCT U LEUK EST . Negative - Negative POCT U NIT . Negative - Negative POCT U PROT trcae Negative - Negative POCT U GLU neg Negative - Negative POCT U KETONE . [...] Type Group [facility] xxxxxxxxx 2019-Presen Medicaid COMM PLAN - t MANAGED MEDICAID [id number] 1 documented as of this encounter Advance Directives Name Relationship Healthcare Agent Relationship Co mmunication Theresa Dakota Life Partner Primary healthcare agent
--- OUTSIDE RECORDS SUMMARY | 2019-08-28 05:07 | XMS REPORT | Summary of Care ---
:1980 Author Organization [facility] Address [address] [place] [address] Care Team Providers Name Role Phone Agnieszka Chamorro CONTROL AREA OPERATOR Primary Care Provider Reason for Visit Reason Comments ROUTINE VISIT Tele Health Visit Encounter Details Date Type Department Care Team Description 07/21/2019 Telemedicine Visit [facility]- Agnieszka Chamorro Supervision of high-risk of elderly multigravida (Primary Dx); JOJO Oseguera AMA (advanced maternal age) multigravida 35+, first trimester; [address]; [place] [address] [place], [place] [phone] [address] Allergies No Known Allergiesdocumented as of this encounter (statuses as of 07/21/2019) Medications Medication Sig Dispensed Refills Start Date End Date Status vit Take 1 Packet by 30 Each 6 01/17/2019 Active 32-dljf-fdkst-dha mouth daily. (SELECT-OB + DHA) 29 mg iron-1 mg -250 mg combo packIndications: Supervision of high-risk of elderly multigravida documented as of this encounter (statuses as of 07/21/2019) Active Problems Problem Noted Date Exposure to [...] as of this encounter (statuses as of 07/21/2019) Immunizations Name Administration Dates Next Due Influenza [...] encounter Progress Notes Agnieszka Chamorro FNP - 07/21/2019 7:45 AM CDT Chief complaint: Chief Complaint Patient presents with ROUTINE VISIT Tele Health Visit TELEHEALTH NOTE Verbal consent obtained from Patient: Ryanne Trevizo and Care Provider: JOJO Patricio due to the COVID-19 pandemic for telehealth services provided below. Communication with patient was conducted via Telephone due to patient unable to obtain video call option. Location of Patient: Home Location of Provider: Clinic Date of Service: 07/21/2019 Chief Complaint: Routine Visit via Tele Health HPI: Ryanne Trevizo is a 39 year old female with Past Medical History: Diagnosis Date gestional diabetes 2006 ROS See Note TELEHEALTH EXAM Constitutional: Alert and no distress Respiratory: Breathing comfortably Neurology: Answers questions appropriately Psychological: Affect Normal After visit summary (AVS ) documentation will be available through [facility] for this encounter. A total of 15 minutes was spent on the Telephone due to patient unable to obtain video call option. Agnieszka Chamorro, JOJO HPI CC: Follow Up Visit Ryanne Trevizo is a 39 year old, , or [place] female. Patient's last menstrual period was 11/04/2018 (approximate). She is 34w5d with an intrauterine . Her estimated date of delivery is 08/27/2019, by Ultrasound. She has no complaints today. She reports +FM and d enies contractions, LOF and bleeding today. Patient denies current or past physical, sexual [...] Past Medical History: Diagnosis Date gestional diabetes 2006 Family History Problem Relation Age of Onset [...] file Gets together: Not on file Attends evangelical service: Not on file Active member of [...] Concern Not on file Social History Narrative Gnosticist preference none. Patient lives with fiance and child. Social History Substance and Sexual Activity Sexual Activity Yes Partners: Male control/protection: None Comment: last sexual intercourse 01/03/2019 Labs No new labs Radiology No new radiology. Allergies Ryanne has No Known Allergies. Medications Ryanne has a current medication list which includes the following prescription(s): vit 06-fvre-zeqat-dha. Review of Systems Eyes: Negative for visual disturbance. Cardiovascular: Negative for leg swelling. Gastrointestinal: Negative for abdominal pain, nausea and vomiting. Genitourinary: Negative for vaginal bleeding, vaginal discharge and pelvic pain. Neurological: Negative for headaches. LMP 11/04/2018 (Approximate) Pregravid BMI: 34.1 Physical Exam PHYSICAL: General Exam: Neurological: Normal Assessment/Plan Supervision of high-risk of elderly multigravida (primary encounter diagnosis) AMA (advanced maternal age) multigravida 35+, first trimester [address] Comment: Routine Visit Plan: CBC WITH DIFF, GROUP B STREPTOCOCCUS BY PCR Denies zika virus risk, signs and symptoms such as fever,rash,joint pain, conjunctivitis (red eyes), muscle pain, headaches; outside [place] travel to areas affected by zika, and FOB exposure to zika.Educated on use of mosquito repellent. Obesity in Comment: BMI: 34.1 Plan: Patient encouraged to limit weight gain and advised to eat healthy diet, fruits, vegetables, increased fiber and water intake and protein low in fat. Encouraged exercise for 30 min everyday; begin regimen with caution to prevent injury. Encouraged to decrease BMI to <25. Return to clinic in 1 week in person. Discussed treatment options. Medications as ordered. Reviewed patient instructions and provided printed copy. This visit did not involve counseling and coordination that comprised more than 50% of the visit time. JOJO Patricio 07/21/2019 8:20 AM documented in this encounter Plan of Treatment Date Type Specialty Care Team Description 07/28/2019 Routine Visit OB Satellites Agnieszka Chamorro FNP [address] [address] [phone] 08/02/2019 Motor Patrol Operator Visit Maternal Medicine Name Type Priority Associated Diagnoses Order S chedule CBC WITH DIFF LAB Routine Supervision of high-risk Ex pected: of elderly , Expires: multigravida 07/20/2020 GROUP B STREPTOCOCCUS BY LAB Routine Supervision of h igh-risk Expected: PCR of elderly , Expires: multigravida 07/20/2020 Health Maintenance Due Date Last Done Comments [...] Effective Dates Phone Addre ss Type Group [facility] ST[facility] xxxxxxxxx 2019-Presen Medicaid COMM PLAN - t MANAGED MEDICAID [id number] 1 documented as of this encounter Advance Directives Name Relationship Healthcare Agent Relationship Co mmunication Theresa Duncan Life Partner Primary healthcare agent ([place])
--- OUTSIDE RECORDS SUMMARY | 2019-08-28 05:08 | XMS REPORT | Summary of Care ---
:1980 Author Organization [facility] Address [address] [place] [address] Care Team Providers Name Role Phone Agnieszka Chamorro RECRUITMENT INTERNSHIP Primary Care Provider Reason for Visit Reason Comments Care Encounter Details Date Type Department Care Team Description 08/04/2019 Routine [facility]- Agnieszka Chamorro upervision of high-risk of elderly multigravida (Primary Dx); Visit JOJO Oseguera AMA (advanced maternal age) multigravida 35+, first trimester; [address]; [place], [place] [address] [place], [place] [phone] [address] Allergies No Known Allergiesdocumented as of this encounter (statuses as of 08/04/2019) Medications Medication Sig Dispensed Refills Start Date End Date Status vit Take 1 Packet by 30 Each 6 01/17/2019 Active 39-qbwc-lksjz-dha mouth daily. (SELECT-OB + DHA) 29 mg iron-1 mg -250 mg combo packIndications: Supervision of high-risk of elderly multigravida documented as of this encounter (statuses as of 08/04/2019) Active Problems Problem Noted Date Exposure to [...] as of this encounter (statuses as of 08/04/2019) Immunizations Name Administration Dates Next Due Influenza [...] been in contact with No / Unsure 08/04/2019 9:35 AM CDT someone who was confirmed or suspected to have Coronavirus / COVID-19? documented as of this encounter Last Filed Vital Signs Vital Sign Reading Time Taken Comments Blood Pressure 130/81 08/04/2019 9:35 AM CDT Pulse 88 08/04/2019 9:35 AM CDT Temperature 37 C (98.6 F) 08/04/2019 9:35 AM CDT Respiratory Rate 16 08/04/2019 9:35 AM CDT Oxygen Saturation - - Inhaled Oxygen Concentration - - Weight 107.6 kg (237 lb 4 oz) 08/04/2019 9:35 AM CDT Height 162.6 cm (5' 4") 08/04/2019 9:35 AM CDT Body Mass Index 40.72 08/04/2019 9:35 AM CDT documented in this encounter Progress Notes Agnieszka Chamorro, RECRUITMENT INTERNSHIP - 08/04/2019 9:30 AM CDT Chief complaint: Chief Complaint Patient presents with Care HPI CC: Follow Up Visit Ryanne Trevizo is a 39 year old, , or [place] female. Patient's last menstrual period was 11/04/2018 (approximate). She is 36w5d with an intrauterine . Her estimated date of delivery is 08/27/2019, by Ultrasound. She has no complaints today. She reports +FM and d enies contractions, LOF and bleeding today. Reviewed OB/ER, PIH, labor and movement precautions. Encouraged patient to go to [facility] for any signs and symptoms of [...] file Gets together: Not on file Attends mandaen service: Not on file Active member of [...] Concern Not on file Social History Narrative Christian preference none. Patient lives with fiance and child. Social History Substance and Sexual Activity Sexual Activity Yes Partners: Male control/protection: None Comment: last sexual intercourse 01/03/2019 Labs No new labs Radiology No new radiology. Allergies Ryanne has No Known Allergies. Medications Ryanne has a current medication list which includes the following prescription(s): vit 25-zarq-jfwcn-dha. Review of Systems Eyes: Negative for visual disturbance. Cardiovascular: Negative for leg swelling. Gastrointestinal: Negative for abdominal pain, nausea and vomiting. Genitourinary: Negative for vaginal bleeding, vaginal discharge and pelvic pain. Neurological: Negative for headaches. BP 130/81 (BP Location: Right arm, Patient Position: Sitting, BP CUFF SIZE: Adult Medium) | Pulse 88 | Temp 37 C (98.6 F) (Oral) | Resp 16 | Ht 5' 4" (1.626 m) | Wt 237 lb 4 oz (107.6 kg) | LMP 11/04/2018 (Approximate) | BMI 40.72 kg/m Pregravid BMI: 34.1 Physical Exam PHYSICAL: General Exam: Neurological: Normal Abdomen: Normal Extremities: Normal Pelvic Exam: Uterus: 38cm Weeks Assessment/Plan Supervision of high-risk of elderly multigravida (primary encounter diagnosis) AMA (advanced maternal age) multigravida 35+, first trimester [address] Comment:Routine Visit Plan: POCT URINALYSIS W SPECIFIC GRAVITY Denies zika virus risk, signs and symptoms such as fever,rash,joint pain, conjunctivitis (red eyes), muscle pain, headaches; outside [place] travel to areas affected by zika, and FOB exposure to zika. Educated on use of mosquito repellent. Obesity in Comment: BMI: 40.72 Plan: Patient encouraged to limit weight gain [...] 50% of the visit time. JOJO Patricio 08/04/2019 10:11 AM documented in this encounter Plan of Treatment Date Type Specialty Care Team Description 08/10/2019 Routine Visit OB Satellites Ulises Chamorro FNP [address] [place], [place] [address] [phone] Health Maintenance Due Date Last Done Comments PAP SMEAR 09/09/2021 09/09/2018 DTaP,Tdap,and Td Vaccines (2 - Td) 06/13/2029 06/14/2019 INFLUENZA VACCINE Completed 02/01/2019 PNEUMOCOCCAL 0-64 YEARS COMBINED Aged Out No longer eligible based on SERIES patient's age to complete this topic documented as of this encounter Procedures Procedure Name Priority Date/Time Associated Diagnosis Comme nts POCT URINALYSIS Routine 08/04/2019 9:36 AM Supervision of Res ults for this CDT high-risk of whitney tilley are in elderly multigravida the res ults section. documented in this encounter Results POCT URINALYSIS W SPECIFIC GRAVITY (08/04/2019 9:36 AM CDT) Pathologist Sig nature POCT U SP GRAV . 1.005 - 1.025 mg/dl POCT PH U . 5 - 8 mg/dl POCT U LEUK EST . Negative - Negative POCT U NIT . Negative - Negative POCT U PROT trace Negative - Negative POCT U GLU neg [...] Effective Dates Phone Addre ss Type Group [facility] xxxxxxxxx 2019-[employer] Medicaid COMM PLAN - t MANAGED MEDICAID [id number] 1 documented as of this encounter Advance Directives Name Relationship Healthcare Agent Relationship Co mmunication Theresa Duncan Life Partner Primary healthcare agent
--- OUTSIDE RECORDS SUMMARY | 2019-08-28 05:08 | XMS REPORT | Summary of Care ---
:1980 Author Organization [facility] Address [address] [place] [address] Care Team Providers Name Role Phone Agnieszka ChamorroP Primary Care Provider Encounter Details Date Type Department Care Team Description 08/02/2019 Abstract [facility]- A ngletAgnieszka Manriquez, [facility] [address] [facility] [address] [place] [address] [place] [address] [phone] Allergies No Known Allergiesdocumented as of this encounter (statuses as of 08/02/2019) Medications Medication Sig Dispensed Refills Start Date End Date Status vit Take 1 Packet by 30 Each 6 01/17/2019 Active 74-mygh-yjiht-dha mouth daily. (SELECT-OB + DHA) 29 mg [...] 08/04/2019 Routine Visit OB Satellites Ulises Chamorro, CIDER PRESS OPERATOR [address] [address] [phone] Health Maintenance Due Date Last Done Comments [...] Effective Dates Phone Addre ss Type Group [facility] xxxxxxxxx 2019-[employer] Medicaid COMM PLAN - t MANAGED MEDICAID documented as of this encounter Advance Directives Name Relationship Healthcare Agent Relationship Co mmunication Theresa Duncan Life Partner Primary healthcare agent
--- OUTSIDE RECORDS SUMMARY | 2019-08-28 05:09 | XMS REPORT | Summary of Care ---
:1980 Author Organization [facility] Address [address] [place] [address] Care Team Providers Name Role Phone Agnieszka Chamorro [facility] Primary Care Provider Reason for Visit Reason Comments Forms Encounter Details Date Type Department Care Team Description [facility] Forms [address] [place] [address] [place] [address] [phone] Allergies No Known Allergiesdocumented as of this encounter (statuses as of 08/09/2019) Medications Medication Sig Dispensed Refills Start Date End Date Status vitamin w/FA Take 1 tablet by 100 tablet 3 08/06/2019 Active tabletIndications: mouth daily. (spontaneous vaginal delivery) docusate calcium 240 Take 1 capsule by 60 capsule 1 08/06/2019 Active mg mouth once daily capsuleIndications: as needed for (spontaneous Constipation. vaginal delivery) ferrous sulfate 325 Take 1 tablet by 60 tablet 2 08/06/2019 Active mg (65 mg iron) mouth 2 (two) tabletIndications: times daily. (spontaneous vaginal delivery) ibuprofen 600 mg Take 1 tablet by 60 tablet 1 08/06/2019 Active tabletIndications: mouth every 6 (spontaneous (six) hours as vaginal delivery) needed (Pain). Take with food or milk. documented as of this encounter (statuses as of 08/09/2019) Active Problems Problem Noted Date delivery 08/06/2019 Anemia, 08/06/2019 Single live 08/06/2019 Normal spontaneous vaginal delivery 08/05/2019 36 weeks gestation of 08/05/2019 (spontaneous vaginal delivery) 08/05/2019 Normal labor 08/05/2019 36 weeks gestation of 08/05/2019 Exposure to strep throat 03/01/2019 Rubella non-immune status, antepartum 01/06/2019 Overview: Address in Supervision of high-risk of elderly multigra sudhir 01/04/2019 AMA (advanced maternal age) multigravida 35+, third tr imester 01/04/2019 Obesity in 01/04/2019 Multiparity 01/04/2019 documented as of this encounter (statuses as of 08/09/2019) Immunizations Name Administration Dates Next Due Influenza [...] drinks on one occasion? No t asked Sex Assigned at Date Recorded Not on file Job Start Date Occupation Industry Not on file Not on file Not on file Travel History Travel Start Travel End No recent travel history available. COVID-19 Exposure Response Date Recorded In the last month, have you been in contact with No / Unsure 08/05/2019 5:00 AM CDT someone who was confirmed or suspected to have Coronavirus / COVID-19? documented as of this encounter Last Filed Vital Signs Not on filedocumented in this encounter Plan of Treatment Date Type Specialty Care Team Description 08/16/2019 Telemedicine Visit OB Shirley Leong, COLLISION CENTER MANAGER [address] [id number] [phone] 08/29/2019 Routine Visit OB Ulises Leong, COLLISION CENTER MANAGER [address] [place], [place] [address] [phone] Health Maintenance Due Date Last Done Comments [...] Dates Phone Addre ss Type Group [facility] xxxxxxxxx 2019-[facility] Medicaid COMM PLAN - t MANAGED MEDICAID documented as of this encounter Advance Directives Name Relationship Healthcare Agent Relationship Co mmunication Theresa Duncan Life Partner Primary healthcare agent
--- OUTSIDE RECORDS SUMMARY | 2019-08-28 05:09 | XMS REPORT | Summary of Care ---
:1980 Author Organization [facility] Address [address] [place] [address] Care Team Providers Name Role Phone Agnieszka Chamorro Ulises [facility] Primary Care Provider Reason for Visit Reason Comments CONTRACTIONS Encounter Details Date Type Department Care Team Description 08/05/2019 Nurse Triage [facility] Javed Stephenson, SARI [address] [facility] Vivian, [place] [address] [address] [facility] [phone] [place] [address] Allergies No Known Allergiesdocumented as of this encounter (statuses as of 08/05/2019) Medications Medication Sig Dispensed Refills Start Date End Date Status vit Take 1 Packet by 30 Each 6 01/17/2019 Active 38-uurm-rbilr-dha mouth daily. (SELECT-OB + DHA) 29 mg iron-1 mg -250 mg combo packIndications: Supervision of high-risk of elderly multigravida documented as of this encounter (statuses as of 08/05/2019) Active Problems Problem Noted Date Exposure to [...] as of this encounter (statuses as of 08/05/2019) Immunizations Name Administration Dates Next Due Influenza [...] Description 08/10/2019 Routine Visit OB Satellites Ulises Chamorro, MANAGER DRUG SAFETY [address] [place], [place] [address] [phone] Health Maintenance Due Date Last Done Comments [...] Phone Addre ss Type Group [facility] xxxxxxxxx 2019-[facility] Medicaid COMM PLAN - t MANAGED MEDICAID documented as of this encounter Advance Directives Name Relationship Healthcare Agent Relationship Co mmunication Theresa Duncan Life Partner Primary healthcare agent
--- OUTSIDE RECORDS SUMMARY | 2019-08-28 05:09 | XMS REPORT | Summary of Care ---
:1980 Author Organization [facility] Address [address] [place] [address] Care Team Providers Name Role Phone Agnieszka Chamorro ENGLISH LANGUAGE LEARNER TEACHER Primary Care Provider Reason for Visit Reason Comments Care Encounter Details Date Type Department Care Team Description 08/04/2019 Routine [facility]- Agnieszka Chamorro upervision of high-risk of elderly multigravida (Primary Dx); Visit JOJO Oseguera AMA (advanced maternal age) multigravida 35+, first trimester; [address]; [place] [address] [place], [place] [phone] [address] Allergies No Known Allergiesdocumented as of this encounter (statuses as of 08/04/2019) Medications Medication Sig Dispensed Refills Start Date End Date Status vit Take 1 Packet by 30 Each 6 01/17/2019 Active 04-yovu-dyflz-dha mouth daily. (SELECT-OB + DHA) 29 mg [...] in this encounter Progress Notes Agnieszka Chamorro, ENGLISH LANGUAGE LEARNER TEACHER - 08/04/2019 9:30 AM CDT Chief complaint: Chief Complaint Patient presents with Care HPI CC: Follow Up Visit Ryanne Trevizo is a 39 year old, , or [place] female. Patient's last menstrual period was 11/04/2018 (approximate). She is 36w5d with an intrauterine . Her estimated date of delivery is 08/27/2019, by Ultrasound. She has no complaints today. She reports +FM and d enies contractions, LOF and bleeding today. Reviewed OB/ER, PIH, labor and movement precautions. Encouraged patient to go to [facility] for any signs and symptoms of labor [...] file Gets together: Not on file Attends jain service: Not on file Active member of [...] Concern Not on file Social History Narrative Yarsani preference none. Patient lives with fiance and child. Social History Substance and Sexual Activity Sexual Activity Yes Partners: Male control/protection: None Comment: last sexual intercourse 01/03/2019 Labs No new labs Radiology No new radiology. Allergies Ryanne has No Known Allergies. Medications Ryanne has a current medication list which includes the following prescription(s): vit 90-wcyz-ltanj-dha. Review of Systems Eyes: Negative for visual [...] Visit OB Satellites Ulises Chamorro FNP [address] [place], [place] [address] [phone] Health Maintenance Due Date Last Done Comments [...] Effective Dates Phone Addre ss Type Group [facility] xxxxxxxxx 2019-[place] Medicaid COMM PLAN - t MANAGED MEDICAID [id number] 1 documented as of this encounter Advance Directives Name Relationship Healthcare Agent Relationship Co mmunication Theresa Duncan Life Partner Primary healthcare agent
--- OUTSIDE RECORDS SUMMARY | 2019-08-28 05:09 | XMS REPORT | Summary of Care ---
:1980 Author Organization [facility] - Health Address [address] [place] [address] Care Team Providers Name Role Phone Shirley Chamorrokarishmagarrick Ulises [facility] Primary Care Provider Encounter Details Date Type Department Care Team Description 08/04/2019 Orders Only [facility] Doctor Unassigned, No [address] [place] [address] [address] [place] [address] Allergies No Known Allergiesdocumented as of this encounter (statuses as of 08/04/2019) Medications Medication Sig Dispensed Refills Start Date End Date Status vit Take 1 Packet by 30 Each 6 01/17/2019 Active 47-lrri-qbama-dha mouth daily. (SELECT-OB + DHA) 29 mg [...] 08/10/2019 Routine Visit OB Satellites Ulises Chamorro, VACUUM CONDITIONER OPERATOR [address] [address] [phone] Health Maintenance Due Date Last Done Comments PAP SMEAR 09/09/2021 09/09/2018 DTaP,Tdap,and Td Vaccines (2 - Td) 06/13/2029 06/14/2019 INFLUENZA VACCINE Completed 02/01/2019 PNEUMOCOCCAL 0-64 YEARS COMBINED Aged Out No longer eligible based on SERIES patient's age to complete this topic documented as of this encounter Procedures Procedure Name Priority Date/Time Associated Diagnosis Comme nts PATIENT CORRESPONDENCE Routine 08/04/2019 12:01 AM (LETTERS, USPS CDT DOCUMENTATION) documented in this encounter Results Not on filedocumented in this encounter Insurance Payer Benefit Plan / Subscriber ID Effective Dates Phone Addre ss Type Group [facility] xxxxxxxxx 2019-[place] Medicaid COMM PLAN - t MANAGED MEDICAID documented as of this encounter Advance Directives Name Relationship Healthcare Agent Relationship Co mmunication Theresa Duncan Life Partner Primary healthcare agent
--- OUTSIDE RECORDS SUMMARY | 2019-08-28 05:11 | XMS REPORT | Summary of Care ---
:1980 Author Organization [facility] Address [address] [place] [address] Care Team Providers Name Role Phone Agnieszka Chamorro AERIAL SPRAYER Primary Care Provider Reason for Visit Reason Comments Follow-up Tele Health Visit (Routine) Status Reason Specialty Diagnoses / Referred By Referred To Procedures Contact Contact New Request OB Satellites Diagnoses (spontaneous vaginal delivery) Martino, Procedures DISCHARGE FOLLOW-UP: [facility] Allyson Cuellar [facility] [address] [place] [address] Encounter Details Date Type Department Care Team Description 08/16/2019 Telemedicine Visit [facility]MP- Agnieszka Chamorro Depression JOJO Oseguera screening negative [address] (Primary Dx) [place] [address] [place], [place] [phone] Allergies No Known Allergiesdocumented as of this encounter (statuses as of 08/16/2019) Medications Medication Sig Dispensed Refills Start Date [...] as of this encounter (statuses as of 08/16/2019) Active Problems Problem Noted Date delivery 08/06/2019 [...] as of this encounter (statuses as of 08/16/2019) Immunizations Name Administration Dates Next Due Influenza [...] encounter Progress Notes Agnieszka Chamorro FNP - 08/16/2019 10:00 AM CDT Chief complaint: Chief Complaint Patient presents with Follow-up Tele Health Visit TELEHEALTH NOTE Verbal consent obtained from Patient: Ryanne Trevizo and Care Provider: JOJO Patricio due to the COVID-19 pandemic for telehealth services provided below. Communication with patient was conducted via Telephone due to patient unable to obtain video call option. Location of Patient: Home Location of Provider: Clinic Date of Service: 08/16/2019 Chief Complaint: Mood Check Visit via Tele Health HPI: Ryanne Trevizo is a 39 year old female with Past Medical History: Diagnosis Date Anemia, 08/06/2019 gestional diabetes 2007 ROS See Note TELEHEALTH EXAM Constitutional: Alert and no distress Respiratory: Breathing comfortably Neurology: Answers questions appropriately Psychological: Affect Normal ASSESSMENT/ PLAN After visit summary (AVS ) documentation will be available through [id number] for this encounter. A total of 15 minutes was spent on the Telephone due to patient unable to obtain video call option. JOJO Patricio HPI The patient has tele health visit for mood check. Patient states she is bonding well, and copingwell with less sleep. She reports that she has no pain, small lochia, and denies all s/s of PP depression. Patient given negative COVID 19 results and denies any current symptoms. Histories OB History Para Term AB Living 6 4 3 1 2 4 SAB TAB Ectopic Multiple Live Births 1 1 0 4 # Outcome Date GA Lbr Prabhu/2nd Weight Sex Delivery Anes PTL Lv 6 08/05/19 36w6d 6 lb 9.5 oz (2.99 kg) M NORMAL SPONT None Y LANI 5 SAB 08/2018 4 Term 10/26/17 38w0d 7 lb (3.175 kg) M VAGINAL LANI 3 Term 07/16/06 38w0d 7 lb (3.175 kg) M VAGINAL LANI 2 TAB 2005 1 Term 04/30/01 38w0d 8 lb (3.629 kg) F VAGINAL LANI Past Medical History: Diagnosis Date Anemia, 08/06/2019 gestional diabetes 2007 Family History Problem Relation [...] file Gets together: Not on file Attends temple service: Not on file Active member of [...] Concern Not on file Social History Narrative Merged History Encounter Gnosticism preference none. Patient lives with fiance and child. Social History Substance and Sexual Activity Sexual Activity Yes Partners: Male control/protection: None Comment: last sexual intercourse 01/03/2019 Labs No new labs Radiology No new radiology. Allergies Ryanne has No Known Allergies. Medications Ryanne has a current medication list which includes the following prescription(s): docusate calcium,ferrous sulfate, ibuprofen, and vitamin w/fa. Review of Systems Constitutional: Negative for activity [...] heat intolerance, weight gain and weight loss. LMP 11/04/2018 (Approximate) Pregravid BMI: 34.1 Physical Exam See Tele Health Assessment/Plan Depression screening negative (primary encounter diagnosis) Comment: Mood Check Visit, negative COVID 19 results Plan: Patient will have 3 wk PP visit via [employer]. Return to clinic in 2 weeks for 3wk PP Visit. Discussed treatment options. Medications as ordered. Reviewed patient instructions and provided printed copy. This visit did not involve counseling and coordination that comprised more than 50% of the visit time. JOJO Patricio 08/16/2019 9:41 AM documented in this encounter Plan of Treatment Date Type Specialty Care Team Description 08/30/2019 Telemedicine Visit OB Satellites Shirley Chamorro FNP [address] [place], [place] [address] [phone] Health Maintenance Due Date Last Done Comments PAP SMEAR 09/09/2021 09/09/2018 DTaP,Tdap,and Td Vaccines (2 - Td) 06/13/2029 06/14/2019 INFLUENZA VACCINE Completed 02/01/2019 PNEUMOCOCCAL 0-64 YEARS COMBINED Aged Out No longer eligible based on SERIES patient's age to complete this topic documented as of this encounter Results Not on filedocumented in this encounter Visit Diagnoses Diagnosis Depression screening negative - Primary documented in this encounter Insurance Payer Benefit Plan / Subscriber ID Effective Dates Phone Addre ss Type Group [facility] xxxxxxxxx 2019-[facility] Medicaid COMM PLAN - t MANAGED MEDICAID [id number] 1 documented as of this encounter Advance Directives Name Relationship Healthcare Agent Relationship Co mmunication Theresa Duncan Life Partner Primary healthcare agent
--- OUTSIDE RECORDS SUMMARY | 2019-08-28 05:11 | XMS REPORT | Summary of Care ---
:1980 Author Organization [facility] - [facility] Address [address] [place] [id number] Care Team Providers Name Role Phone Agnieszka Chamorro [facility] Primary Care Provider Reason for Referral (Routine) Status Reason Specialty Diagnoses / Referred By Referred To Procedures Contact Contact New Request OB Satellites Diagnoses (spontaneous vaginal delivery) Martino, Procedures DISCHARGE FOLLOW-UP: [facility] KRISHAN Farrell [address] [place] [phone] Reason for Visit Auth/Cert Status Reason Specialty Diagnoses / Referred By Contact Refe rred To Contact Procedures Obstetrics Diagnoses Labor J3c [address] [place] [phone] Phone: Fax: Encounter Details Date Type Department Care Team Description 08/05/2019 - Hospital Encounter Mother Baby Unit Jd Roman S VD (spontaneous 08/06/2019 (Yvrose) vaginal delivery) [address] [place] [phone] Allergies No Known Allergiesdocumented as of this encounter (statuses as of 08/10/2019) Medications Medication Sig Dispensed Refills Start Date End Date Status vitamin Take 1 tablet 100 tablet 3 08/06/2019 Active w/FA by mouth tabletIndications: daily. (spontaneous vaginal delivery) docusate calcium Take 1 60 capsule 1 08/06/2019 A ctive 240 mg capsule by capsuleIndications: mouth once (spontaneous daily as vaginal delivery) needed for Constipation. ferrous sulfate 325 Take 1 tablet 60 tablet 2 08/06/2019 Active mg (65 mg iron) by mouth 2 tabletIndications: (two) times (spontaneous daily. vaginal delivery) ibuprofen 600 mg Take 1 tablet 60 tablet 1 08/06/2019 Active tabletIndications: by mouth (spontaneous every 6 (six) vaginal delivery) hours as needed (Pain). Take with food or milk. vit Take 1 Packet 30 Each 6 01/17/2019 08/06/2019 D iscontinued [id number]-dha by mouth (SELECT-OB + DHA) daily. 29 mg iron-1 mg -250 mg combo packIndications: Supervision of high-risk of elderly multigravida documented as of this encounter (statuses as of 08/10/2019) Active Problems Problem Noted Date delivery 08/06/2019 [...] as of this encounter (statuses as of 08/10/2019) Immunizations Name Administration Dates Next Due Influenza [...] Sign Reading Time Taken Comments Blood Pressure 129/88 08/06/2019 8:34 AM CDT Pulse 76 08/06/2019 8:34 AM CDT Temperature 36.5 C (97.7 F) 08/06/2019 8:34 AM CDT Respiratory Rate 18 08/06/2019 8:34 AM CDT Oxygen Saturation 99% 08/06/2019 8:34 AM CDT Inhaled Oxygen Concentration - - Weight 107.5 kg (237 lb) 08/05/2019 5:40 AM CDT Height 162.6 cm (5' 4") 08/05/2019 5:40 AM CDT Body Mass Index 40.68 08/05/2019 5:40 AM CDT documented in this encounter Discharge Instructions InstructionsSBelkis pena RN - 08/06/2019Multidisciplinary Discharge Instructions (may include diet, dressing changes, activity limits, written materials given to patient: DIET: Eat a well balanced diet; drink 6-8 glasses of fluids daily; eat fruits and green, leafy vegetables. DAILY ACTIVITIES: 1. As much as you feel able to do. Rest when you are tired. 2. Limitations: Specify; No heavy lifting other than your baby for 4 weeks if you had surgery. TREATMENT AT HOME 1. Use a well-fitting bra to prevent breast engorgement 2. Resume intercourse as instructed by your physician. 3. Do not use douches or tampons for four weeks. 4. To help prevent urinary tract infection; after each urination and bowel movement, wipe and dry from front to back and change karey pad. 5. Follow discharge instructions regarding baby care. 6. Follow family planning instructions. IMMEDIATE TREATMENT - Call Clinic or Your Physician 1. Increase in pain and tenderness of uterus. 2. Increased vaginal bleeding (bright red blood which soaks 2 pads in 1 hour or pass large clots). 3. Foul smelling vaginal discharge. 4. Burning in the tube that empties the urine from the bladder. 5. Painful breast engorgement or cracked nipples. 6. Pain, discharges, or gaping incision. 7. Temperature greater than 38.0C or 100.4F 8. Pain and tenderness of calf or thigh muscles. 9. No bowel movements in 4 days. For Problems or Questions Call: OB Clinic Family Planning [phone] or Emergency: Go to the closest emergency room or call 911 AttachmentsThe following attachments cannot be sent through Care Everywhere. , After Giving: How to Feel Healthy (Bermudian) Depression, Understanding (Bermudian)documented in this encounter Progress Notes Vilma Ledesma FNP - 08/09/2019 9:41 AM CDT Pt was discharged home from the unit on 08/06/2019. JOJO Blair 08/09/2019 9:42 AM NCIOTAllyson Martino [facility] - 08/06/2019 7:45 AM CDT PROGRESS NOTE Subjective: Patient is a 39 year old , S/P , post day 1. She denies problems or questions. Patientdenies sob, vertigo, or palpitations. Patient reports voiding without difficulty with good urine output. Patient reports ambulating unassisted without difficulty. Tolerating diet, passing flatus. Breast /bottlefeeding. No evidence of depression. Changes since previous day: Delivered Objective: Vital Signs: BP: (116-127)/(75-85) Temp: [36.2 C (97.2 F)-36.8 C (98.2 F)] Temp source: Oral (08/05 0442) Pulse: [75-86] Resp: [18] SpO2: [96 %-98 %] Height: -- Weight: -- BMI (calculated): -- Physical Exam: General: No apparent distress Happy with new baby. Affect appropriate Heart: regular rate and rhythm. S1, S2 present. No murmur/ rubs/gallops Lungs: good inspiratory effort to inspections, lungs clear to auscultation bilaterally. No wheeze/stridor/ crackles bilaterally. Breast: soft Abdomen: soft non-tender Fundus: firm at umbilicus Perineum: intact, no edema, hematoma or abcess Lochia: scant rubra, no clots Extremities: no clubbing, cyanosis, or edema bilaterally. No calf tenderness/ NEG Candi's Current Medications: Current Facility-Administered Medications Medication Dose Route Frequency Last Rate Last Dose measles, mumps + rubella vac (M-M-R II) 1,000-12,500 TCID50/0.5 mL injection 0.5 mL 0.5 mL Subcutaneous ONCE acetaminophen (TYLENOL) tablet 650 mg 650 mg Oral Q6HPRN 650 mg at 08/05/191931 benzocaine-menthol (DERMOPLAST) 20-0.5 % topical spray Topical PRN diphenhydrAMINE (BENADRYL) tablet 25 mg 25 mg Oral Q6HPRN diphenhydrAMINE-0.9 % sod.chlr (BENADRYL) 25 mg/50 mL piggyback 25 mg 25 mg IV Piggyback Q6HPRN docusate calcium (SURFAK) capsule 240 mg 240 mg Oral QDAILYPRN 240 mg at 08/05/191931 ibuprofen (IBU) tablet 600 mg 600 mg Oral Q6HPRN 600 mg at 08/05/191931 LR 1000 mL + oxytocin 20 units IV Solution IV Infusion CONTINUOUS 125 mL/hr at 08/05/19 0452 magnesium hydroxide (MILK OF MAGNESIA) 400 mg/5 mL suspension 30 mL 30 mL Oral QDAILYPRN ondansetron (ZOFRAN (PF)) injection 4 mg 4 mg Slow IV Push Q8HPRN vitamin w/FA (PRENATABS RX) tablet 1 tablet 1 tablet Oral DAILY rho(D) immune globulin (RHOGAM) syringe 300 mcg 300 mcg Intramuscular ONCE simethicone (GAS RELIEF (SIMETHICONE)) chewable tablet 160 mg 160 mg Oral PC+HSPRN Labs: CBC BMP MAGNESIUM WBC (10*3/L) Date Value 08/06/2019 10.46 No results found for: NA No results found for: MG PLT (10*3/L) Date Value 08/06/2019 249 No results found for: K HGB (g/dL) Date Value 08/06/2019 8.8 (L) No results found for: CA HCT (%) Date Value 08/06/2019 28.4 (L) No results found for: CL TYPE & RH No results found for: BUN ABO & RH (no units) Date Value 08/05/2019 A POSITIVE No results found for: CREAT Type & Screen Rubella Varicella ABO & RH (no units) Date Value 08/05/2019 A POSITIVE Rubella screen IgG (no units) Date Value 01/04/2019 Negative No results found for: VZVG No results found for: TSABINT Hep B HIV Syphilis No results found for: HBS No results found for: HIV No results found for: SYPG Group B Strep Chlamydia No results found for: CGBS C. trachomatis Nucleic Acid (no units) Date Value 01/04/2019 Negative Studies: Assessment/Plan: Principal Problem: (spontaneous vaginal delivery) (08/05/2019) POA: Yes Assessment: Delivered Plan: Routine course Active Problems: Rubella non-immune status, antepartum (01/06/2019) POA: Yes Assessment: Rubella non-immune Plan: Pt aware she needs the rubella vaccine prior to d/c home. Pt also aware to avoid for3 months post vaccine. Pt advised to avoid exposure to anyone who may have signs or symptoms of the measles during delivery (08/06/2019) POA: Unknown Assessment: Delivery at 36 weeks Plan: Routine course Anemia, (08/06/2019) POA: Unknown Assessment: asymptomatic HGB (g/dL) Date Value 08/06/2019 8.8 (L) Plan: Pt will need repeat CBC at 6 wk PP visit Single live (08/06/2019) POA: Unknown Assessment: 2990 g with 8/9 Apgars Plan: Infant in care of pediatricians ASSESSMENT 39 y/o S/p on 08/05/19 at 0424 complicated by none. Patient is recovering well: hemodynamically stable, good UOP, pain well-controlled, vitals within normal limits. PLAN 1. Review: - Admitted for: Active labor 2. care: - Diet: Regular diet - Fluid: Encourage oral intake - Activity: Encourage ambulation - Pain: Acosta and Ibuprofen - DVT prophylaxis: Encourage ambulation 3. Discharge Planning: - Contraception: IUD - Vaccines: Pt will need MMR before discharge - Follow Up: follow-up in 3 weeks at clinic - Anticipate discharge tomorrow ROBERT SalazarP documented in this encounter Plan of Treatment Date Type Specialty Care Team Description 08/16/2019 Telemedicine Visit OB [facility] Shirley Chamorro, [employer] [address] [place], [place] [address] [phone] 08/29/2019 Routine Visit OB [facility] Ulises Chamorro, [employer]ANT [address] [place], [place] [address] Name Type Priority Associated Diagnoses Order S chedule ARTERIAL CORD GAS LAB ROBIN ONCE for 1 Occurrences starting 08/05/2019 unti l 08/05/2019 VENOUS CORD GAS LAB ROBIN ONCE for 1 O ccurrences starting 08/05/2019 unti l 08/05/2019 Health Maintenance Due Date Last Done Comments PAP SMEAR 09/09/2021 09/09/2018 DTaP,Tdap,and Td Vaccines (2 - Td) 06/13/2029 06/14/2019 INFLUENZA VACCINE Completed 02/01/2019 PNEUMOCOCCAL 0-64 YEARS COMBINED Aged Out No longer eligible based on SERIES patient's age to complete this topic documented as of this encounter Procedures Procedure Name Priority Date/Time Associated Comments Diagnosis PATIENT CORRESPONDENCE Routine 08/09/2019 12:01 (LETTERS, USPS AM CDT DOCUMENTATION) CBC WITH DIFFERENTIAL Routine 08/06/2019 3:19 Re sults for this AM CDT procedure are i n the results section. CBC WITH DIFFERENTIAL Routine 08/06/2019 3:19 Re sults for this AM CDT procedure are i n the results section. RHO (D) IMMUNE GLOBULIN Routine 08/05/2019 5:35 Results for this AM CDT procedure are i n the results section. HB ABO GROUPING STAT 08/05/2019 5:35 Results for this AM CDT procedure are i n the results section. GALV ONLY - SYPHILIS STAT 08/05/2019 5:31 Res ults for this IGG/IGM AM CDT procedure are i n the results section. CBC WITH DIFFERENTIAL STAT 08/05/2019 5:31 Re sults for this AM CDT procedure are i n the results section. HEPATITIS B SURFACE STAT 08/05/2019 5:31 Resu lts for this ANTIGEN AM CDT procedure are i n the results section. CBC WITH DIFFERENTIAL STAT 08/05/2019 5:31 Re sults for this AM CDT procedure are i n the results section. documented in this encounter Results CBC WITH DIFFERENTIAL (08/06/2019 3:19 AM CDT) Pathologist Sig nature WBC 10.46 4.30 - 11.10 [facility] 10*3/L SERVICES RBC 3.47 (L) 3.93 - 5.25 [facility] 10*6/L SERVICES HGB 8.8 (L) 11.6 - 15.0 [facility] g/dL SERVICES HCT 28.4 (L) 35.7 - 45.2 % [facility] MCV 81.8 80.6 - 95.5 fL [facility] MCH 25.4 (L) 25.9 - 32.8 pg [facility] MCHC 31.0 (L) 31.6 - 35.1 [facility] g/dL SERVICES RDW-SD 41.2 39.0 - 49.9 fL [facility] SERVICES RDW-CV 14.5 12.0 - 15.5 % [facility] PLT 249 166 - 358 [facility] 10*3/L SERVICES MPV 9.4 (L) 9.5 - 12.9 fL [facility] SERVICES NRBC/100 WBC 0.2 0.0 - 10.0 /100 [facility] WBCs SERVICES NRBC x10^3 0.02 10*3/L [facility] SERVICES GRAN MAT (NEUT) % 74.3 % [facility] IMM GRAN % 0.70 % [facility] LYMPH % 18.3 % [facility] MONO % 5.0 % [facility] EOS % 1.4 % [facility] BASO % 0.3 % [facility] GRAN MAT x10^3(ANC) 7.78 (H) 1.88 - 7.09 [facility] 10*3/uL SERVICES IMM GRAN x10^3 0.07 (H) 0.00 - 0.06 [facility] 10*3/uL SERVICES LYMPH x10^3 1.91 1.32 - 3.29 [facility] 10*3/uL SERVICES MONO x10^3 0.52 0.33 - 0.92 [facility] 10*3/uL SERVICES EOS x10^3 0.15 0.03 - 0.39 [facility] 10*3/uL SERVICES BASO x10^3 0.03 0.01 - 0.07 [facility] 10*3/uL SERVICES Specimen Blood - ARM, RIGHT Performing Organization Address City/State/Zipcode Phone Number [facility] CLIA: [id number], [address] [place] [address] [facility] Type and Screen - ONCE STAT (08/05/2019 5:35 AM CDT) Pathologist [facility] ABO & RH A POSITIVE LAB Comment: Performed at [facility] Laboratory Services - [facility] Blood [place] [address] Toll Free: [phone] CLIA No. [id number] IAT Negative LAB Comment: Performed at [facility] Laboratory Services - [facility] Blood [place] [address] Toll Free: [phone] CLIA No. [id number] Specimen Blood - VENOUS Performing Organization Address City/[facility]/Zipcode Phone Number D LAB RHO (D) IMMUNE GLOBULIN (08/05/2019 5:35 AM CDT) Pathologist [facility] nature RHIG CANDIDATE? No- see comment LAB Comment: Patient is not a candidate for RhIg- Patient is Rh Pos itive. Performed at [facility] Laboratory Services - [facility] Blood [place] [address] Toll Free: [phone] CLIA No. [id number] Specimen Blood - VENOUS Performing Organization Address City/[facility]/Zipcode Phone Number D LAB CBC WITH DIFFERENTIAL (08/05/2019 5:31 AM CDT) Pathologist Sig nature WBC 16.81 (H) 4.30 - 11.10 [facility] 10*3/L SERVICES RBC 3.88 (L) 3.93 - 5.25 [facility] 10*6/L SERVICES HGB 9.9 (L) 11.6 - 15.0 [facility] g/dL SERVICES HCT 31.4 (L) 35.7 - 45.2 % [facility] SERVICES MCV 80.9 80.6 - 95.5 fL [facility] MCH 25.5 (L) 25.9 - 32.8 pg [facility] MCHC 31.5 (L) 31.6 - 35.1 [facility] g/dL SERVICES RDW-SD 40.8 39.0 - 49.9 fL [facility] RDW-CV 14.2 12.0 - 15.5 % [facility] PLT 271 166 - 358 [facility] 10*3/L SERVICES MPV 9.5 9.5 - 12.9 fL [facility] NRBC/100 WBC 0.2 0.0 - 10.0 /100 [facility] WBCs SERVICES NRBC x10^3 0.04 10*3/L [facility] SERVICES GRAN MAT (NEUT) % 88.8 % [facility] SERVICES IMM GRAN % 0.60 % [facility] LYMPH % 5.8 % [facility] MONO % 4.5 % [facility] SERVICES EOS % 0.2 % [facility] BASO % 0.1 % [facility] SERVICES GRAN MAT x10^3(ANC) 14.93 (H) 1.88 - 7.09 [facility] 10*3/uL SERVICES IMM GRAN x10^3 0.10 (H) 0.00 - 0.06 [facility] 10*3/uL SERVICES LYMPH x10^3 0.97 (L) 1.32 - 3.29 [facility] 10*3/uL SERVICES MONO x10^3 0.76 0.33 - 0.92 [facility] 10*3/uL SERVICES EOS x10^3 0.03 0.03 - 0.39 [facility] 10*3/uL SERVICES BASO x10^3 <0.03 0.01 - 0.07 [facility] 10*3/uL SERVICES Specimen Blood - VENOUS Performing Organization Address City/State/Zipcode Phone Number [facility] CLIA: [id number], [address] [place] [address] [facility] GALV ONLY - SYPHILIS IGG/IGM (08/05/2019 5:31 AM CDT) Pathologist Sig nature Syphilis IgG/IgM Non-reactive Non-reactive [facility] Specimen Blood - ARM, LEFT Narrative Performed At [facility] Non-reactive - No serologic evidence of T. pallidum infection. Cannot exclude incubating or early syphilis . Submit a second specimen in 2-4 weeks if syphilis is clinically suspected. Equivocal - Further testing to follow. Reactive - Further testing to follow. Performing Organization Address City/State/Zipcode Phone Number [facility] CLIA: [id number], [address] [place] [address] [facility] HEPATITIS B SURFACE ANTIGEN (08/05/2019 5:31 AM CDT) Pathologist Sig nature HBsAg Negative Negative [facility] HBsAg 0.06 [facility] Semi-Quantitative SERVICES Specimen Blood - VENOUS Performing Organization Address City/[facility]/Zipcode Phone Number [facility] CLIA: [id number], [address] [place] [address] [facility] documented in this encounter Visit Diagnoses Diagnosis (spontaneous vaginal delivery) - [facility] Normal delivery Rubella non-immune status, antepartum Other specified complication, antepartum delivery Early onset of delivery, unspecified as to episode of care Anemia, Single live documented in this encounter Administered Medications Medication Order MAR Action Action Date Dose Rate Site acetaminophen (TYLENOL) tablet Given 08/05/2019 7:32 PM CDT 650 mg 650 mg 650 mg, Oral, Q6HPRN, Starting Thu08/05/19 at 0515, Until Discontinued, Routine, Pain (scale 1-3) docusate calcium (SURFAK) capsule 240 mg Given 08/05/2019 7:32 PM CDT 240 mg 240 mg, Oral, QDAILYPRN, Starting Thu08/05/19 at 0515, Until Discontinued, Routine, Constipation ibuprofen (IBU) tablet 600 mg Given 08/05/2019 7:32 PM CDT 600 mg 600 mg, Oral, Q6HPRN, Starting Thu08/05/19 at 0515, Until Discontinued, Routine, Pain (scale 4-6) Given 08/05/2019 7:27 AM CDT 600 mg LR 1000 mL + oxytocin 20 units IV New Bag 08/05/2019 4:52 AM CDT 125 mL/hr Solution at 125 mL/hr, IV Infusion, CONTINUOUS, Starting Thu08/05/19 at 0615, Until Discontinued, ROBIN vitamin w/FA (PRENATABS RX) Given 08/06/2019 8:38 AM C DT 1 tablet tablet 1 tablet 1 tablet, Oral, DAILY, First dose on Thu08/05/19 at 0900, Until Discontinued, Routine documented in this encounter Insurance Payer Benefit Plan / Subscriber ID Effective Dates Phone Addre ss Type Group [facility] xxxxxxxxx 2019-[employer] Medicaid COMM PLAN - t MANAGED MEDICAID [id number] documented as of this encounter Advance Directives Name Relationship Healthcare Agent Relationship Co mmunication Theresa Duncan Life Partner Primary healthcare agent
[2019-08-28] MEDS ORDERED: LIDOCAINE 1% 20 ML MDV ONE (05:32)
[2019-08-28] MEDS ORDERED: ACETAMINOPHEN 500 MG TAB ONE (05:49)
--- NOTE | 2019-08-28 07:22 | RAD REPORT ---
EXAM DESCRIPTION: CT - Head Brain Wo Cont - 08/28/2019 6:31 am CLINICAL HISTORY: TRAUMA Headache, trauma COMPARISON: No comparisons TECHNIQUE: All CT scans are performed using dose optimization technique as appropriate and may inclu de automated exposure control or mA/KV adjustment according to patient size. FINDINGS: No intracranial hemorrhage, hydrocephalus or extra-axial fluid collection.No areas of brai n edema or evidence of midline shift. The paranasal sinuses and mastoids are clear. The calvarium is intact. IMPRESSION: No acute intracranial abnormality.
--- NOTE | 2019-08-28 07:36 | EDPHYS ---
Physician Documentation [facility] Name: Ryanne Trevizo Age: 39 yrs Sex: Female : 1980 Arrival Date: 08/28/2019 Time: 05:04 Bed 4 Private MD: ED Physician Vega Dick HPI: 08/27 05:19 This 39 yrs old Female presents to ER via EMS with complaints of Ankle Injury. 7 05:19 Details of fall: The patient fell from an upright position, while walking. Onset: The 7 symptoms/episode began/occurred today. Associated injuries: The patient sustained injury to the head, contusion, right corner of mouth, laceration, 2.0 cm(s), left ankle, painful injury, swelling. Severity of symptoms: At their worst the symptoms were moderate, earlier today, in the emergency department the symptoms are unchanged. Patient states that she went to a green party and drank alcohol then later fell. She has a laceration to her upper lip and pain and swelling of her left ankle. . Historical: - Allergies: 05:00 No Known Allergies; jb4 - Home Meds: 05:00 Vitamin Oral [Active]; jb4 - PMHx: 05:00 dislocating left ankle; jb4 - PSHx: 05:00 None; jb4 - Immunization history:: Adult Immunizations up to date, Last tetanus immunization: < 5 years ago. - Social history:: Smoking status: Patient/guardian denies using tobacco, Patient uses alcohol, patient/guardian reports recent binge of alcohol consumption. street drugs, marijuana. ROS: 05:19 Constitutional: Negative for fever, chills, and weight loss, Eyes: Negative for injury, mh7 pain, redness, and discharge, Neck: Negative for injury, pain, and swelling, Cardiovascular: Negative for chest pain, palpitations, and edema, Respiratory: Negative for shortness of breath, cough, wheezing, and pleuritic chest pain, Abdomen/GI: Negative for abdominal pain, nausea, vomiting, diarrhea, and constipation, Back: Negative for injury and pain, : Negative for injury, bleeding, discharge, and swelling, Skin: Negative for injury, rash, and discoloration, Neuro: Negative for headache, weakness, numbness, tingling, and seizure, Psych: Negative for depression, anxiety, suicide ideation, homicidal ideation, and hallucinations, Allergy/Immunology: Negative for hives, rash, and allergies, Endocrine: Negative for neck swelling, polydipsia, polyuria, polyphagia, and marked weight changes, Hematologic/Lymphatic: Negative for swollen nodes, abnormal bleeding, and unusual bruising. Exam: 05:19 Constitutional: This is a well developed, well nourished patient who is awake, alert, mh7 and in no acute distress. 05:19 Eyes: Pupils equal round and reactive to light, extra-ocular motions intact. Lids and lashes normal. Conjunctiva and sclera are non-icteric and not injected. Cornea within normal limits. Periorbital areas with no swelling, redness, or edema. ENT: Nares patent. No nasal discharge, no septal abnormalities noted. Tympanic membranes are normal and external auditory canals are clear. Oropharynx with no redness, swelling, or masses, exudates, or evidence of obstruction, uvula midline. Mucous membranes moist. Neck: Trachea midline, no thyromegaly or masses palpated, and no cervical lymphadenopathy. Supple, full range of motion without nuchal rigidity, or vertebral point tenderness. No Meningismus. Chest/axilla: Normal chest wall appearance and motion. Nontender with no deformity. No lesions are appreciated. Cardiovascular: Regular rate and rhythm with a normal S1 and S2. No gallops, murmurs, or rubs. Normal PMI, no JVD. No pulse deficits. Respiratory: Lungs have equal breath sounds bilaterally, clear to auscultation and percussion. No rales, rhonchi or wheezes noted. No increased work of breathing, no retractions or nasal flaring. Abdomen/GI: Soft, non-tender, with normal bowel sounds. No distension or tympany. No guarding or rebound. No evidence of tenderness throughout. Back: No spinal tenderness. No costovertebral tenderness. Full range of motion. Skin: Warm, dry with normal turgor. Normal color with no rashes, no lesions, and no evidence of cellulitis. 05:19 Neuro: Awake and alert, GCS 15, oriented to person, place, time, and situation. Cranial nerves II-XII grossly intact. Motor strength 5/5 in all extremities. Sensory grossly intact. Cerebellar exam normal. Normal gait. Psych: Awake, alert, with orientation to person, place and time. Behavior, mood, and affect are within normal limits. 05:19 Head/face: Noted is a laceration(s), that is linear, 2.0 cm(s), of the right upper lip. 05:19 Musculoskeletal/extremity: Extremities: noted in the Left ankle: pain, swelling, tenderness, ROM: limited active range of motion, in the left ankle, limited passive range of motion, in the left ankle, Pulses: are normal with no appreciated deficits, Perfusion: the patient is normally perfused throughout, Perfusion: the extremity is normally perfused throughout, Calf tenderness, is absent, Edema, is not appreciated, Sensation intact. Compartment Syndrome exam of affected extremity: is normal. no numbness, no tingling, no sensation deficit, no palor, no weak pulses, Joints: the left ankle displays limited range of motion, pain at rest, painful range of motion, swelling, tenderness, Weight bearing: is unable to bear weight. Vital Signs: 05:00 BP 118 / 93; Pulse 96; Resp 16; Temp 98.1(TE); Pulse Ox 96% on R/A; Weight 97.52 kg jb4 (R); Height 5 ft. 4 in. (162.56 cm) (R); Pain 6/10; 06:15 BP 121 / 90; Pulse 87; Resp 16; Pulse Ox 98% on R/A; jb4 07:22 BP 124 / 87; Pulse 83; Resp 16; Pulse Ox 99% on R/A; Pain 6/10; em 05:00 Body Mass Index 36.90 (97.52 kg, 162.56 cm) jb4 Procedures: 07:24 Splinting: Splint applied to left ankle using Orthoglass splint, applied by myself. pm1 nurse. Examined by me, post splint application: neurovascular intact, 2+ distal pulses palpable, brisk capillary refill noted, Patient tolerated well, posterior short leg with stirrup. Laceration: 07:00 Wound Repair of 2.0cm ( 0.8in ) subcutaneous laceration to right upper lip. Irregularly mh7 shaped.. Distal neuro/vascular/tendon intact. Anesthesia: Regional Block with 5 mls of 1% lidocaine. Wound prep: Extensive cleansing by me, Wound irrigation by me, Copious irrigation. Subcutaneous tissue closed with 3 6-0 Vicryl using simple sutures and sterile technique. Skin closed with 8 6-0 Fast absorbing gut using interrupted sutures and sterile technique. MDM: 05:16 Patient medically screened. [facility] 07:00 Differential diagnosis: abrasion, closed head injury, contusion, fracture, laceration. [facility] Data reviewed: vital signs, nurses notes, EMS record, radiologic studies, CT scan, plain films. 07:33 Counseling: I had a detailed discussion with the patient and/or guardian regarding: the pm1 historical points, exam findings, and any diagnostic results supporting the discharge/admit diagnosis, radiology results, the need for outpatient follow up, for definitive care, a orthopedic surgeon, to return to the emergency department if symptoms worsen or persist or if there are any questions or concerns that arise at home. 07:44 ED course: COMPRESSOR MECHANIC Aware reviewed. pm1 08/27 05:18 Order name: CT Head Brain wo Cont; Complete Time: 07:25 7 08/27 05:18 Order name: Ankle Left 3 View XRAY [facility] 08/27 05:40 Order name: Suture Tray Setup; Complete Time: 05:40 jb4 08/27 07:31 Order name: Splint - Long Leg: Posterior w/ Stirrup; Complete Time: 07:31 em 08/27 07:40 Order name: Crutches; Complete Time: 08:07 pm1 Administered Medications: 05:43 Drug: Tylenol 1000 mg Route: PO; jb4 07:30 Follow up: Response: No adverse reaction; Pain is decreased em 06:00 Drug: Lidocaine (1 %) 1 application {Note: Administered by ER provider..} Volume: 20 jb4 ml; Route: Infiltration; 07:30 Follow up: Response: No adverse reaction; Pain is decreased em 08:03 Drug: traMADol 50 mg Route: PO; em 09:08 Follow up: Response: No adverse reaction; Marked relief of symptoms; Pain is decreased em Disposition: 19:08 Co-signature as Attending Physician, Vega Dick MD. [facility] Disposition: 08/28/19 07:36 Discharged to Home. Impression: Closed comminuted distal left fibula fracture, Laceration of lip and oral cavity without foreign body. - Condition is Stable. - Discharge Instructions: Cast or Splint Care, Adult, Crutch Use, Fibular Ankle Fracture Treated With or Without Immobilization, Adult, Mouth Laceration, Facial Laceration. - Prescriptions for Augmentin 875- 125 mg Oral Tablet - take 1 tablet by ORAL route every 12 hours for 10 days; 20 tablet. Tramadol 50 mg Oral Tablet - take 1 tablet by ORAL route every 8 hours as needed; 12 tablet. - Medication Reconciliation Form, Thank You Letter, Antibiotic Education, Prescription Opioid Use form. - Follow up: Emergency Department; When: As needed; Reason: Worsening of condition. Follow up: Jean Carlos Soto MD; When: 2 - 3 days; Reason: Recheck today's complaints, Continuance of care, Re-evaluation by your physician. - Problem is new. - Symptoms have improved. Signatures: Dispatcher [employer] EDMS Catracho Smyth RN RN em Dre Hong NP SHUTTLE BUGGY OPERATOR pm1 Kirt Vargas RN RN jb4 Vega Dick MD MD 7 Corrections: (The following items were deleted from the chart) 07:05 07:00 Wound Repair of 2.0cm ( 0.8in ) subcutaneous laceration to right upper lip. mh7 Irregularly shaped.. Distal neuro/vascular/tendon intact. Anesthesia: Regional Block with 5 mls of 1% lidocaine. Wound prep: Extensive cleansing by me, Wound irrigation by me, Copious irrigation. Subcutaneous tissue closed with 3 6-0 Vicryl using simple sutures and sterile technique. Skin closed with 6-0 Fast absorbing gut using interrupted sutures and sterile technique. mh7 09:44 07:36 08/28/2019 07:36 Discharged to Home. Impression: Closed comminuted distal left em fibula fracture; Laceration of lip and oral cavity without foreign body. Condition is Stable. Forms are Medication Reconciliation Form, Thank You Letter, Antibiotic Education, Prescription Opioid Use. Follow up: Emergency Department; When: As needed; Reason: Worsening of condition. Follow up: Dr. Jean Carlos Soto; When: 2 - 3 days; Reason: Recheck today's complaints, Continuance of care, Re-evaluation by your physician. Problem is new. Symptoms have improved. pm1
--- NOTE | 2019-08-28 07:36 | ER ---
Nurse's Notes [facility] Name: Ryanne Trevizo Age: 39 yrs Sex: Female : 1980 Arrival Date: 08/28/2019 Time: 05:04 Bed 4 Private MD: Diagnosis: Laceration of lip and oral cavity without foreign body;Closed comminuted distal left fibula fracture Presentation: 08/27 05:00 Chief complaint: Patient states: Pt has a history of dislocating her left ankle. Pt was jb4 drinking and went to a democrat at her friends house, tried to walk home, and fell, swelling is noted to the left ankle, pt has a laceration to the right upper lip. Pt's reports that she made it home by 2330. 05:00 Coronavirus screen: Proceed with normal triage. Ebola Screen: No symptoms or risks jb4 identified at this time. Initial Sepsis Screen: Does the patient meet any 2 criteria? No. Patient's initial sepsis screen is negative. Does the patient have a suspected source of infection? No. Patient's initial sepsis screen is negative. Risk Assessment: Do you want to hurt yourself or someone else? Patient reports no desire to harm self or others. Onset of symptoms was August 28, 2019. Transition of care: patient was not received from another setting of care. 05:00 Method Of Arrival: EMS: [facility] jb4 05:00 Acuity: GAUDENCIO 3 jb4 Triage Assessment: 05:00 General: Appears in no apparent distress. comfortable, Behavior is calm, cooperative, jb4 appropriate for age. Pain: Complains of pain in Left ankle. Pain does not radiate. Pain currently is 6 out of 10 on a pain scale. EENT: No signs and/or symptoms were reported regarding the EENT system. Neuro: Level of Consciousness is awake, alert, obeys commands, Oriented to person, place, time, situation. Cardiovascular: Patient's skin is warm and dry. Respiratory: Airway is patent Respiratory effort is even, unlabored, Respiratory pattern is regular, symmetrical. GI: No signs and/or symptoms were reported involving the gastrointestinal system. : No signs and/or symptoms were reported regarding the genitourinary system. Derm: Skin is intact, Skin is pink, warm \T\ dry. Musculoskeletal: Circulation, motion, and sensation intact. Range of motion: intact in all extremities. Injury Description: Laceration sustained to right corner of mouth is clean, full thickness, 0.5 to 2.5 cm long. Historical: - Allergies: 05:00 No Known Allergies; jb4 - Home Meds: 05:00 Vitamin Oral [Active]; jb4 - PMHx: 05:00 dislocating left ankle; jb4 - PSHx: 05:00 None; jb4 - Immunization history:: Adult Immunizations up to date, Last tetanus immunization: < 5 years ago. - Social history:: Smoking status: Patient/guardian denies using tobacco, Patient uses alcohol, patient/guardian reports recent binge of alcohol consumption. street drugs, marijuana. Screenin:00 Abuse screen: Denies threats or abuse. Nutritional screening: No deficits noted. jb4 Tuberculosis screening: No symptoms or risk factors identified. Fall Risk Fall in past 12 months (25 points). Gait- Impaired (20 pts.). Mental Status- Overestimates/Forgets Limitations (15 pts.). Total Kevin Fall Scale indicates High Risk Score (45 or more points). Fall prevention measures have been instituted. Side Rails Up X 2 Placed Close to Nursing Station Frequent Obs/Assessments Occuring As available patient and family educated on Fall Prevention Program and Strategies. Assessment: 05:00 General: See triage assessment.. jb4 06:00 Reassessment: Patient appears in no apparent distress at this time. Patient and/or jb4 family updated on plan of care and expected duration. Pain level reassessed. Patient is alert, oriented x 3, equal unlabored respirations, skin warm/dry/pink. 07:15 Reassessment: Patient appears in no apparent distress at this time. Patient and/or em family updated on plan of care and expected duration. Pain level reassessed. Patient is alert, oriented x 3, equal unlabored respirations, skin warm/dry/pink. rates pain 6/10. 08:07 Reassessment: Patient appears in no apparent distress at this time. Patient is alert, em oriented x 3, equal unlabored respirations, skin warm/dry/pink. unable to reach at this time, will continue to call at [phone], will be discharged afterwards. 09:00 Reassessment: Patient appears in no apparent distress at this time. Patient and/or em family updated on plan of care and expected duration. Pain level reassessed. Patient is alert, oriented x 3, equal unlabored respirations, skin warm/dry/pink. Vital Signs: 05:00 BP 118 / 93; Pulse 96; Resp 16; Temp 98.1(TE); Pulse Ox 96% on R/A; Weight 97.52 kg jb4 (R); Height 5 ft. 4 in. (162.56 cm) (R); Pain 6/10; 06:15 BP 121 / 90; Pulse 87; Resp 16; Pulse Ox 98% on R/A; jb4 07:22 BP 124 / 87; Pulse 83; Resp 16; Pulse Ox 99% on R/A; Pain 6/10; em 05:00 Body Mass Index 36.90 (97.52 kg, 162.56 cm) jb4 ED Course: 05:00 Arm band placed on. jb4 05:00 Patient has correct armband on for positive identification. Placed in gown. Bed in low jb4 position. Call light in reach. Side rails up X 1. Pulse ox on. NIBP on. 05:04 Patient arrived in ED. cl3 05:06 Vega Dick MD is Attending Physician. mh7 05:08 Kirt Vargas, LIVIA is Primary Nurse. jb4 05:10 Triage completed. jb4 06:03 Ankle Left 3 View XRAY In Process Unspecified. EDMS 06:32 CT Head Brain wo Cont In Process Unspecified. EDMS 06:55 Assist provider with laceration repair on right corner of mouth that was 2.5 cm. or jb4 less using sutures. Set up tray. Performed by Vega Dick MD Patient tolerated well. 07:21 Orthoglass splint: Posterior short lleg splint applied on left leg. stirrup splint dh3 applied on left leg. capillary refill <3 seconds, assisted by Dre Hong N.P. 07:24 Dre Hong NP is PHCP. pm1 07:34 Jean Carlos Soto MD is Referral Physician. pm1 08:00 Crutch training done. em 08:08 Patient did not have IV access during this emergency room visit. em Administered Medications: 05:43 Drug: Tylenol 1000 mg Route: PO; jb4 07:30 Follow up: Response: No adverse reaction; Pain is decreased em 06:00 Drug: Lidocaine (1 %) 1 application {Note: Administered by ER provider..} Volume: 20 jb4 ml; Route: Infiltration; 07:30 Follow up: Response: No adverse reaction; Pain is decreased em 08:03 Drug: traMADol 50 mg Route: PO; em 09:08 Follow up: Response: No adverse reaction; Marked relief of symptoms; Pain is decreased em Outcome: 07:36 Discharge ordered by . pm1 09:43 Discharged to home via wheelchair, with family. em 09:43 Condition: stable 09:43 Discharge instructions given to patient, Instructed on discharge instructions, follow up and referral plans. no drinking with medication, no driving heavy equipment, medication usage, crutch walking, Demonstrated understanding of instructions, follow-up care, crutch walking, splint care, Prescriptions given X 2. 09:44 Patient left the ED. em Signatures: Dispatcher [employer] Catracho Bennett RN RN em Dre Hong, CHARISSA LOTTERIES AGENT pm1 Kirt Vargas RN RN jb4 Alana Gonzalez 3 Ana Flannery 3 Vega Dick MD MD mh7
[2019-08-28] MEDS ORDERED: TRAMADOL HCL 50 MG TAB ONE (08:07)
[2019-08-28 09:51] VITALS: BP 124/87; O2SAT 99
--- NOTE | 2019-08-28 11:33 | RAD REPORT ---
EXAM DESCRIPTION: RAD - Ankle Left 3 View - 08/28/2019 6:03 am CLINICAL HISTORY: injury Fall, trauma, ankle injury COMPARISON: No comparisons FINDINGS: Oblique fracture is seen involving the distal fibula. Syndesmotic disruption is seen with widening of the medial clear space. Small plantar calcaneal spur is evident.
== END 2019-08-28 09:44 | disposition home or self-care (01) ==
LOC: ER 05:02
PROC: 0CQ0XZZ Repair Upper Lip, External Approach (ICD-10-PCS; principal; 2019-08-28)
PROC: 2W3RX1Z Immobilization of Left Lower Leg using Splint (ICD-10-PCS; 2019-08-28)
DX: S82.452A Displaced comminuted fracture of shaft of left fibula, initial encounter for closed fracture (principal); S01.511A Laceration without foreign body of lip, initial encounter; S01.512A Laceration without foreign body of oral cavity, initial encounter; W19.XXXA Unspecified fall, initial encounter; Y93.01 Activity, walking, marching and hiking; Y92.9 Unspecified place or not applicable
CPT/HCPCS: 70450; 99284

== ENCOUNTER 2019-09-07 08:47 | Day surgery (SDC) | payer OTHER ==
[2019-08-31 10:49] LABS: Basophils % 0.4 % (0-1.3); Hematocrit 39.6 % (36.0-45.0); Lymphocytes % 14.1 % (15.3-44.8); MPV 7.8 fL (7.6-11.3)
[2019-08-31 10:53] LABS: Protime INR 0.97
[2019-08-31 10:58] LABS: BUN Blood Urea Nitrogen 10 mg/dL (7-18); Bicarbonate 27 mmol/L (21-32); Glucose Level 96 mg/dL (74-106); Potassium 3.8 mmol/L (3.5-5.1); Sodium Level 142 mmol/L (136-145)
--- NOTE | 2019-08-31 11:08 | RAD REPORT ---
EXAM DESCRIPTION: RAD - Chest Pa And Lat (2 Views) - 08/31/2019 10:34 am CLINICAL HISTORY: preop, pending left ankle surgery COMPARISON: None TECHNIQUE: Frontal and lateral views of the chest were obtained. FINDINGS: The lungs are clear. Heart size is normal and central vasculature is within normal limit s. No pleural effusion or pneumothorax seen. No acute bony finding noted. No aortic abnormality. IMPRESSION: No acute cardiopulmonary process.
--- NOTE | 2019-09-01 07:17 | EKG ---
Test Date: 2019-08-31 Test Time: 10:06:08 Metal Bed Assembler: RANDELL MEASUREMENT RESULTS: Intervals: Rate: 67 ME: 132 QRSD: 80 QT: 386 QTc: 407 [place]: P: 33 ME: 132 QRS: 22 T: 27 INTERPRETIVE STATEMENTS: Normal sinus rhythm Normal ECG No previous ECG available for comparison Electronically Signed On 09-01-19 07:15:16 CDT by Cristi Almaguer
[2019-09-07] MEDS ORDERED: CEFAZOLIN/SWI 1gm 0 GM/0 ML SYR ONE (09:02)
[2019-09-07] MEDS ORDERED: Ringers Lactate 1,000 ML IV ONE ×2 (09:02→12:11)
[2019-09-07] MEDS ORDERED: CEFAZOLIN/SWI 1gm 2 GM/20 ML SYR ONE (09:04)
[2019-09-07 09:16] LABS: Specific Gravity 1.025 (1.005-1.030)
[2019-09-07] MEDS ORDERED: MIDAZOLAM HCL 2 MG/2 ML INJ ONE (09:21)
[2019-09-07] MEDS ORDERED: dexAMETHasone 10 MG/ML VIAL ONE (09:21)
[2019-09-07] MEDS ORDERED: FENTANYL CITR 100 MCG/2 ML ONE (09:21)
[2019-09-07] MEDS ORDERED: NS 0.9% VIAL 10 ML ONE (09:22)
[2019-09-07] MEDS ORDERED: LIDOCAINE 2% MPF 5 ML VIAL ONE (09:22)
--- OUTSIDE RECORDS SUMMARY | 2019-09-07 09:27 | XMS REPORT | Continuity of Care Document ---
:1980 Author Organization [facility] t Address [address] [place] [address] Care Team Providers Name Role Phone Agnieszka Angelo Attending Clinician Abel MANZANO F Attending Clinician Javed Stephenson RN Attending Clinician Unavailable Doctor Unassigned, Name Attending Clinician Unavailable Abel MANZANO, F Admitting Clinician Problems This patient has no known problems. Allergies, Adverse Reactions, Alerts This patient has no known allergies or adverse reactions. Medications Ordered Filled Start Stop Current Ordering Indication Dosage Frequency Signature Comments Components Source Medication Medication Date Date Medication? Clinician (SIG) Name Name Tramadol Tramadol 2019- Yes Jean Carlos as C [facility] HCl HCl 09-05 Soto directed [facility]: [facility] 00 :00 [facility] Procedures This patient has no known procedures. Encounters Start End Encounter Admission Attending Care Care Encounter Source Date/Time Date/Time Type Type Clinicians Facility Department ID 2019-09-06 2019-09-06 [facility] [id number] [facility] [address] 16:53:00 16:53:00 [facility] 2019-08-30 2019-08-30 [facility] [id number] [facility] [address] 13:30:00 13:30:00 [facility] 2019-08-30 2019-08-30 Telemlisette Chamorro [facility] [id number] 09:26:38 11:53:19 ne Visit Roshunda R HUB LEAD [id number] REGIONAL [id number] MATERNAL [id number] & CHILD 107 [facility] 2019-08-16 2019-08-16 Telemedicbruce Chamorro [facility] [id number] 07:33:07 09:38:01 ne Visit Roshunda R HUB LEAD [id number] REGIONAL [id number] MATERNAL [id number] & CHILD 107 [facility] 2019-08-09 2019-08-09 Telephone Pedro Pablo [facility] [id number] 00:00:00 00:00:00 Roshunda R HUB LEAD [id number] REGIONAL [id number] MATERNAL [id number] & CHILD 107 [facility] 2019-08-05 2019-08-06 Hospital JOY Roman [id number] 04:41:00 16:40:00 Encounter Jd AWAN [id number] [facility] [id number] 2019-08-05 2019-08-05 Nurse Javed HAMILTON [id number] 00:00:00 00:00:00 Triage LV Stephenson [id number] [facility] [id number] 2019-08-04 2019-08-04 [facility] [id number] 09:27:04 10:07:56 Roshunda R HUB LEAD [id number] Visit REGIONAL [id number] MATERNAL [id number] & CHILD 107 [facility] 2019-08-04 2019-08-04 Orders Doctor JOY [id number] 00:00:00 00:00:00 Only Unassigned, LV [id number] [place] [facility] [id number] Results This patient has no known results.
--- OUTSIDE RECORDS SUMMARY | 2019-09-07 09:30 | XMS REPORT | Summary of Care ---
:1980 Author Organization [facility] [employer] Address [address] [place] [id number] Care Team Providers Name Role Phone Agnieszka Chamorro RECRUITING ASSISTANT Primary Care Provider Reason for Visit Reason Comments Care Tele Health Visit Encounter Details Date Type Department Care Team Description 08/30/2019 Telemedicine Visit [facility]- Agnieszka Chamorro care and examination immediately after delivery (Primary Dx); JOJO Oseguera An[place] of mother in , [place] [id number] [address] [id number] [phone] Allergies No Known Allergiesdocumented as of this encounter (statuses as of 08/30/2019) Medications Medication Sig Dispensed Refills Start Date [...] as of this encounter (statuses as of 08/30/2019) Active Problems Problem Noted Date delivery 08/06/2019 [...] as of this encounter (statuses as of 08/30/2019) Immunizations Name Administration Dates Next Due Influenza [...] encounter Progress Notes Agnieszka Chamorro FNP - 08/30/2019 1:15 PM CDT Chief complaint: Chief Complaint Patient presents with Care Tele Health Visit TELEHEALTH NOTE Verbal consent obtained from Patient: Ryanne Trevizo and Care Provider:JOJO Patricio due tothe COVID-19 pandemic for telehealth services provided below. Communication with patient was conducted via Telephone due to patient unable to obtain video call option. Location of Patient: Home Location of Provider: Clinic Date of Service: 08/30/2019 Chief Complaint: Routine Exam via Tele Health HPI: Ryanne Trevizo is a 39 year old female with Past Medical History: Diagnosis Date Anemia, 08/06/2019 gestional diabetes 2007 ROS See Note TELEHEALTH EXAM Constitutional: Alert and no distress Respiratory: Breathing comfortably Neurology: Answers questions appropriately Psychological: Affect Normal ASSESSMENT/ PLAN After visit summary (AVS ) documentation will be available through [email or web address] for this encounter. A total of 15 minutes was spent on the Telephone due to patient unable to obtain video call option. JOJO Patricio HPI The patient is here for a routine PP visit. Patient delivered male via on 08/05/2019. She has no complaints today. She states that she is formula feeding her infant, is bonding well, and coping well with less sleep. She reports that she has no pain, small lochia, and denies all s/s of PP depression. She wants Mirena IUD for PP contraception. Histories OB History Para Term AB Living [...] file Gets together: Not on file Attends voodoo service: Not on file Active member of [...] file Social History Narrative Merged History Encounter [facility] preference none. Patient lives with fiance and [...] (Approximate) Pregravid BMI: 34.1 Physical Exam See Note Assessment/Plan care and examination immediately after delivery (primary encounter diagnosis) Comment: Routine Visit Plan: Denies zika virus risk, signs and symptoms such as fever,rash,joint pain, conjunctivitis (red eyes), muscle pain, headaches; outside [place] travel to areas affected by zika, and FOB exposure to zika.Educated on use of mosquito repellent. Covid x12 screening done, screening results are negative. Anemia of mother in , condition Comment: HGH 8.8 after delivery Plan: CBC WITH DIFF Patient report she is taking and Iron pills daily. Return to clinic in 3 weeks for 6wk/WWE and Mirena IUD insertion. Discussed treatment options. Medications as ordered. Reviewed patient instructions and provided printed copy. This visit did not involve counseling and coordination that comprised more than 50% of the visit time. JOJO Patricio 08/30/2019 11:54 AM documented in this encounter Plan of Treatment Name Type Priority Associated Diagnoses Order S chedule CBC WITH DIFF LAB Routine Anemia of mother in pregnan cy, Expected: 08/30/2019, condition Expires : 08/29/2020 Health Maintenance Due Date Last Done Comments Depression Screening 06/13/2020 06/14/2019 PAP SMEAR 09/09/2021 09/09/2018 DTaP,Tdap,and Td Vaccines (2 - Td) 06/13/2029 06/14/2019 INFLUENZA VACCINE Completed 02/01/2019 PNEUMOCOCCAL 0-64 YEARS COMBINED Aged Out No longer eligible based on SERIES patient's age to complete this topic documented as of this encounter Results Not on filedocumented in this encounter Visit Diagnoses Diagnosis care and examination immediat gato after delivery - Primary Anemia of mother in , postpartu m condition Anemia, documented in this encounter Insurance Payer Benefit Plan / Subscriber ID Effective Dates Phone Addre ss Type Group [facility] xxxxxxxxx 2019-[facility] Medicaid COMM PLAN - t MANAGED MEDICAID [id number] documented as of this encounter Advance Directives Name Relationship Healthcare Agent Relationship Co mmunication Theresa Duncan Life Partner Primary healthcare agent
--- OUTSIDE RECORDS SUMMARY | 2019-09-07 09:30 | XMS REPORT ---
:1980 Author Organization [employer] Care Team Providers Name Role Phone Jean Carlos Soto Provider Role Unavailable Allergies No Known Allergies Problems No Known Problems Medications Medication Code Code Instructions Start End Status Dosage System Date Date Tramadol HCl [facility] [id number] 50 MG Orally 1 September 05September Active as directed po q 6 hrs prn 2019, pain 2019 Results No Known Results Summary Purpose [employer] Submission
--- OUTSIDE RECORDS SUMMARY | 2019-09-07 09:30 | XMS REPORT ---
:1980 Author Organization [employer] Care Team Providers Name Role Phone Jean Carlos Soto Provider Role Unavailable Allergies, Adverse Reactions, Alerts Substance Reaction Event Type N.K.D.A. Info Not Available Non Drug Allergy Problems Problem Type Condition Code Onset Dates Condition Statu s Assessment Closed displaced fracture of S82.62XA Active lateral malleolus of left fibula, initial encounter Assessment Acute left ankle pain M25.572 Active Medications Medication Code System Code Instructions Start Date End Date Status Dosage tramadol NDC 0 Active not defined Amoxicillin NDC [address] Active not defin ed -73 Results No Known Results Summary Purpose [employer] Submission
[2019-09-07] MEDS ORDERED: ROPLVACAINE HCL 40 ML ONE (09:40)
[2019-09-07] MEDS ORDERED: propofoL 200 MG/20 ML VIAL IV ONE (10:21)
[2019-09-07] MEDS ORDERED: ONDANSETRON 4 MG/2 ML VIAL ONE ×2 (11:06→12:51)
[2019-09-07] MEDS ORDERED: KETOROLAC 30 MG/ML INJ ONE (11:58)
--- NOTE | 2019-09-07 12:01 | P.BOP ---
Preoperative diagnosis: left distal fibula fracture Postoperative diagnosis: same Primary procedure: open reduction internal fixation left distal fibula fracture Manager Administrative Services: NONE,NONE Estimated blood loss: 10 cc Specimen: none Findings: see dictation Anesthesia: General Complications: None Implants: 6 hole third tubular plate 3- 3.5 cortical screws, 2- 4.0 cancellous screws Fluids & blood products: per anesthesia record; TT: 54 mins @ 300 mmHg Transferred to: Recovery Room Condition: Good
[2019-09-07] MEDS ORDERED: MEPERIDINE HCL 25 MG/ML SYR ONE (12:11)
--- NOTE | 2019-09-07 12:23 | RAD REPORT ---
EXAM DESCRIPTION: RAD - Ankle Left 2 View - 09/07/2019 12:08 pm CLINICAL HISTORY: ORIF LEFT ANKLE COMPARISON: Ankle Left 3 View dated 08/28/2019 FINDINGS: Fluoroscopy time 0.3 minutes.
--- NOTE | 2019-09-07 12:38 | RAD REPORT ---
EXAM DESCRIPTION: RAD - Ankle Left 2 View - 09/07/2019 12:32 pm CLINICAL HISTORY: POST-OP Ankle fracture COMPARISON: Ankle Left 2 View dated 09/07/2019 FINDINGS: Hardware is present distal left fibula. Bone detail is mildly obscured by cast material. N o unexpected postoperative finding. Small plantar calcaneal spur.
[2019-09-07 12:41] VITALS: O2SAT 100
[2019-09-07 13:17] VITALS: BP 135/89; TEMP 96.9
--- NOTE | 2019-09-08 00:12 | OP ---
Date of Procedure: 09/07/2019 Surgeon: Jean Carlos Soto MD Preoperative Diagnosis: Left distal fibula fracture. Postoperative Diagnosis: Left distal fibula fracture. Procedure: Open reduction and internal fixation, left distal fibula fracture. Anesthesia: General LMA. Fluids: Per Anesthesia record. Estimated Blood Loss: Less than 10 cc. Complications: None. Tourniquet Time: 54 minutes at 300 mmHg. Implants: plate, 3.5 cortical screws and two 4.0 cancellous screws. Indication For Procedure: Ryanne is a 39-year-old female presented today to my clinic with signs and symptoms and x-ray findings consistent with an unstable displaced lateral malleolus fracture of her left ankle, medial space. Due to unstable fracture pattern, I recommended operative raven tment. I discussed with the patient at length risks and benefits associated with operative and nonop erative treatment. She expressed understanding and elected to proceed with operative treatment. Description Of Procedure: After informed consent obtained, the patient was identified in the preoper ative holding area. The left lower extremity was marked. The patient was then taken back to the ope rating room, transferred to the operating table in supine fashion and placed under general LMA anesth esia. Prior to being brought back, she underwent a popliteal block performed by Anesthesia in the [facility]. The left lower extremity was then prepped and draped in usual sterile fashion. A time-out was i nitiated. The correct patient and procedure were confirmed and identified. The patient did receive preoperative prophylactic antibiotics. The left lower extremity was exsanguinated using an Esmarch a nd the tourniquet was inflated at 300 mmHg. Approximately, a 10 cm longitudinal incision was made over the lateral malleolus. Dissection was the n taken down the lateral malleolus. The fracture was identified. The fracture edges were then plane d using a curette and a Botello suction tip. The fracture was then reduced using pointed reduction c lamps. Once adequate reduction was confirmed under direct visualization and under fluoroscopic slime nce, a single lag screw was placed in an anterior to posterior fashion over the oblique fracture usin g standard AO technique. drill bit and a 3.5 cortical screw was placed and there was over all good compression noted of the fracture and stabilization. Next, a 6-hole third tubular plate was placed over the distal fibula. Proper positioning was then confirmed using fluoroscopy. Two 3.5 mm cortical screws were placed proximally in bicortical fashion and 2 4.0 mm cancellous screws were lin graciela distally in the metaphyseal area of the distal fibula in the cortical fashion. There was overall good bite of the screws and good reduction noted. Fracture wound was then irrigated thoroughly with normal saline performed and the syndesmosis was found to be stable. Wound has been irrig ated thoroughly with normal saline. Subcutaneous tissue was approximated using a 2-0 Vicryl. Skin w as approximated using 3-0 nylon. Sterile dressings were applied. The patient was placed in a historiography teacher ior stirrup splint and sent to the PACU in stable condition. Postoperative Plan: She will be nonweightbearing on her left lower extremity. She will follow up in clinic in 2 weeks for wound check and suture removal and she will be placed in Cam boot. BERTA/MAURICEL Voice ID: [id number] Report ID: [id number]
== END 2019-09-07 13:40 | disposition home or self-care (01) ==
LOC: OR 08:47
PROVIDERS: ATTEND Orthopaedic Surgery Sports Medicine
PROC: 0QSK04Z Reposition Left Fibula with Internal Fixation Device, Open Approach (ICD-10-PCS; principal; 2019-09-07 10:15)
DX: S82.62XA Displaced fracture of lateral malleolus of left fibula, initial encounter for closed fracture (principal); Z11.59 Encounter for screening for other viral diseases; Z83.3 Family history of diabetes mellitus; Z82.49 Family history of ischemic heart disease and other diseases of the circulatory system
CPT/HCPCS: 93005; 85025; 80048; 36415; 81025; 85610; 85730; 71046; 73600 ×2; 27792; U0002; J2704; J2250; J3010; J1100; J2175; J2795; J0690; J7120 ×2; J2405 ×2

== ENCOUNTER 2019-12-02 05:01 | Emergency (ER) | payer OTHER ==
--- OUTSIDE RECORDS SUMMARY | 2019-12-02 05:04 | XMS REPORT | Summary of Care ---
:1980 Author Organization [facility] Address [address] [place] [address] Care Team Providers Name Role Phone Agnieszka Chamorro [facility] Primary Care Provider Reason for Visit Reason Comments Well Woman Exam Encounter Details Date Type Department Care Team Description 09/27/2019 Office Visit [facility]- Agnieszka Chamorro Well woman exam (Primary Dx); JOJO Oseguera Encounter for initial prescription of co ntraceptives, unspecified contraceptive; [address] Encounter for IUD insertion; [address] Anemia of mother in , postpartu m condition; [place], [place] [address] Class 2 obesity with body mass index (BM I) of 36.0 to 36.9 in adult, unspecified obesity type, unspecified whether serious comorbidity present; [id number] BMI 36.0-36.9,adult [phone] Allergies Active Allergy Reactions Severity Noted Date Comments Iodine Rash 09/27/2019 documented as of this encounter (statuses as of 09/27/2019) Medications Medication Sig Dispensed Refills Start Date End Date Status vitamin Take 1 tablet 100 tablet 3 08/06/2019 Active w/FA by mouth tabletIndications daily. : (spontaneous vaginal delivery) ferrous sulfate Take 1 tablet 60 tablet 2 08/06/2019 Active 325 mg (65 mg by mouth 2 iron) (two) times tabletIndications daily. : (spontaneous vaginal delivery) traMADol 100 mg Take 50 mg by 0 Active capsule mouth. docusate calcium Take 1 capsule 60 capsule 1 08/06/20192019 Discontinued 240 mg by mouth once capsuleIndication daily as s: needed for (spontaneous Constipation. vaginal delivery) ibuprofen 600 mg Take 1 tablet 60 tablet 1 08/06/2019 09/27/19 20 Discontinued tabletIndications by mouth every : 6 (six) hours (spontaneous as needed vaginal delivery) (Pain). Take with food or milk. Hospital, Clinic, or Ordered Dose Route Frequency Start Date End D ate Status Other Facility Administered Medication levonorgestrel 1 Device Intrauterine ONCE 09/27/2019 09/27/2019 Ended (LILETTA) IUD 1 Device documented as of this encounter (statuses as of 09/27/2019) Active Problems Problem Noted Date Encounter for IUD insertion 09/27/2019 BMI 36.0-36.9,adult 09/27/2019 Anemia of mother in , condition Class 2 obesity with body mass index (BMI) of 36.0 to 36.9 in adult, 01/04/2019 unspecified obesity type, unspecified whether serious comorbidity present documented as of this encounter (statuses as of 09/27/2019) Resolved Problems Problem Noted Date Resolved Date delivery 08/06/2019 09/27/2019 Single live 08/06/2019 09/27/2019 Normal spontaneous vaginal delivery 08/05/2019 070 09/2019 36 weeks gestation of 08/05/2019 09/27/19 20 (spontaneous vaginal delivery) 08/05/201909/26 Normal labor 08/05/2019 09/27/2019 36 weeks gestation of 08/05/2019 09/27/19 20 Exposure to strep throat 03/01/2019 09/27/2019 Rubella non-immune status, antepartum 01/06/2019 Overview: Address in Supervision of high-risk of elderly multigravida 1 09/27/2019 AMA (advanced maternal age) multigravida 35+, third trimeste r 01/04/2019 09/27/2019 Multiparity 01/04/2019 09/27/2019 documented as of this encounter (statuses as of 09/27/2019) Immunizations Name Administration Dates Next Due Influenza [...] been in contact with No / Unsure 09/27/2019 3:26 PM CDT someone who was confirmed or suspected to have Coronavirus / COVID-19? documented as of this encounter Last Filed Vital Signs Vital Sign Reading Time Taken Comments Blood Pressure 134/88 09/27/2019 3:27 PM CDT Pulse 100 09/27/2019 3:27 PM CDT Temperature 36.6 C (97.9 F) 09/27/2019 3:27 PM CDT Respiratory Rate 16 09/27/2019 3:27 PM CDT Oxygen Saturation - - Inhaled Oxygen Concentration - - Weight 97.1 kg (214 lb 2 oz) 09/27/2019 3:27 PM CDT Height 162.6 cm (5' 4") 09/27/2019 3:27 PM CDT Body Mass Index 36.75 09/27/2019 3:27 PM CDT documented in this encounter Patient Instructions Patient InstructionsCamilla Colmenares RN - 09/27/2019 3:15 PM CDT Patient Education Control Methods control methods are used to help prevent .There are many different methods to choose from. Talk to your healthcare provider about which method is right for you.Be sure to ask your provider about the effectiveness of each method. Also ask about the benefits, risks, and side effects of each method. Hormones Some control methods work by releasing hormones such as progestin and estrogen. These methods include hormone implants, hormone shots, the vaginal ring, the patch,and control pills. They all work by stopping ovulation (release of the egg from the ovary). The implant is a small device that needs to be placed in the upper arm by a trained healthcare provider. It works for up to3 years.Hormone injections must be repeated every 3 months.The vaginal ring must be replaced monthly (it can be removed during the fourth week of each cycle). The patch must be replaced weekly (it is not worn during the fourth week of each cycle). control pills must be taken every day. All of these met hods are effective and can be stopped at any time. Intrauterine device (IUD) An IUD is a small, T-shaped device. It must be placed in the uterus by a trained healthcare provider.There are different types of IUDs available. They work by causing changes in the uterus that make it harder for sperm to reach the egg. Depending on the type of IUD you have, it may work for several years or longer. The IUD is a reversible control method. This means it can be removed at any time. Condom A condom is a sheath that forms a thin barrier between the penis and the vagina.It helps prevent by keeping sperm from entering the vagina. When latex condoms are used, they have the added benefit of protecting against most STIs (sexually transmitted infections).Condoms are used each time there is sexual intercourse and should be discarded after each use. Ask your healthcare provider about the different types of condoms available. These include both the male condom and female condom. Spermicide Spermicides come as foams, jellies, creams, suppositories, andtablets.They help prevent by killing sperm. When used alone they are not that reliable. They work best when combined with other control methods such as diaphragms and cervical caps. Sponge, diaphragm, and cervical cap All of these methods help prevent by covering the opening of the uterus (cervix). This prevents sperm from passing through. The sponge contains spermicide. It can be bought over the counter. The sponge must be left in place for at least 6 hours after the last time you have sex.However, it should not stay in place for morethan 24 hours. It should be discarded after it is used. Thediaphragmand cervical cap must be fitted and prescribed by your healthcare provider. Both areused with spermicide.The diaphragm must be left in place for at least 6 hours after sex. However, it should not stay in place for more than 24 hours.It can be washed and reused. The cervical cap must be left in place for at least 6 hours after sex. However, it should not stay in place for more than 48 hours. It can be washed and reused. Withdrawal method This is when the man pulls his penis out of the vagina just before ejaculation (coming). This lowers the amount of sperm entering the vagina. Be aware that fluids released just before ejaculationoften still contain some sperm, so this method is not as reliable as certain other methods. Rhythm method This method requires that you know when in your menstrual cycle you are likely to become . Then, you avoid sex during those days. This requires careful planning and good discipline. Your healthcare provider can explain more about how this works. Tubal ligation and vasectomy These are surgical methods to prevent . Tubal ligation is an option for women. The fallopian tubes are blocked or cut (ligated). This keeps the egg from passing into the uterus or sperm from reaching the egg. Vasectomy is an option for men. The tubes that normally carry sperm to the penis areeither closed or blocked. Both tubal ligation and vasectomy are permanent control methods. This means reversal is either not possible or unlikely to work.They are good choices for women and menwho know that they do not want to have children in the future. [employer] last reviewed this educational content on 01/21/201719992381-7591 [employer]. [address] [place] [address]. All rights reserved. This information is not intended as a substitute for professional medical care. Always follow your healthcare professional's instructions. Patient Education Clinical Breast Exam Many health organizations recommend a yearly clinical breast exam. This exam may be done by a furnace repairer, family healthcare provider, nurse practitioner, nurse supervisor smoke control, or specially trained nurse. Yearly breast exams help tomake surethat breast conditions are found early. Your healthcare providers role A healthcare professional knows the tests and follow-up care needed if a problem is found. Your clinical exam is also a great time to ask questions about breast self-exams. You can find out if yourechecking your breasts in the best way. Or you may want to ask how , breast implants, or breast reduction surgery affect the way you should check your breasts. Diagnostic tests If a clinical exam reveals a breast change, you may have other tests to find out more. These tests may include: Mammography. A low-dose X-ray of your breast tissue. Ultrasound. An imaging test that uses sound waves to create images of your breast. Biopsy. A small amount of breast tissue is removed by needle or by a cut (incision). The tissue is then checked under a microscope. Guidelines for having clinical breast exams The [place] [employer] recommends that starting at age 29, you should have a clinical breast exam every 1 to 3 years. After age 40, have a clinical breast exam each year. If youre at higher risk for breast cancer, you may need exams more often. Risk factors for breast cancer may include: Being over 50 or postmenopausal Having a family history of breast cancer Having the BRCA1 or BRCA2 gene mutation or certain other gene mutations Having more menstrual periods due to starting menstruation early(before age 12) or having a late menopause (after age 55) Having no pregnancies Having a first after age 30 Being obese Having a history of radiation treatment to your chest area Exposure to ANGUS during your mother's Not being active Drinking too much alcohol Having dense breast tissue Taking hormone therapy after menopause Other health organizations have different recommendations. Talk with your healthcare provider about what is best for you. [employer] last reviewed this educational content on 10/21/201619992015-9946 [employer]. [address] [place] [address]. All rights reserved. This information is not intended as a substitute for professional medical care. Always follow your healthcare professional's instructions. Patient Education Breast Health: Breast Self-Awareness What is breast self-awareness? Breast self-awareness is knowing how your breasts normally look and feel. Your breasts change as yougo through different stages of your life. So its important to learn what is normal for your breasts. Knowing about your breasts helps you spot any changes in them right away. Tell your healthcare provider about any changes. Why is breast self-awareness important? Many experts now say that women should focus on breast self-awareness instead of doing a breast self-examination (BSE). These experts include the [place] [employer] and the [place] [employer]. Some experts even advise not teaching women to do a BSE. Thats because research hasnt shown a clear benefit to doing BSEs. Breast self-awareness is different than a BSE. It isnt about following a certain method and schedule. Its about knowing what's normal for your breasts. That way you can spot even small changes right away. If you see any changes, tell your healthcare provider. Changes to look for Call your healthcare provider if you find any changes in your breasts that worry you. These changes may be: A lump Nipple discharge other than breastmilk, especially if it's bloody Swelling A change in size or shape Skin changes, such as redness, thickening, or dimpling of the skin Swollen lymph nodes in the armpit Nipple problems, such as pain or redness If you find a lump Call your provider if you find lumpiness in one breast. Also call if you feel something different inthe tissue or feel a definite lump. Sometimes lumpiness may be due to menstrual changes. But there may be reason for concern. Your provider may want to see you right away if you have: Nipple discharge that is bloody Skin changes on your breast, such as dimpling or puckering Its okay to be upset if you find a lump. Be sure to call your provider right away. Remember that most breast lumps are benign. This means they are not cancer. [employer] last reviewed this educational content on 10/21/201619997629-5311 [employer]. [address] [place] [address]. All rights reserved. This information is not intended as a substitute for professional medical care. Always follow your healthcare professional's instructions. Patient Education Understanding HPV (Human Papillomavirus) HPV (human papillomavirus) is a virus that causes warts. It can be hard to detect, so many people never even know they have it. Some types (strains) of HPV may cause warts on the hands, legs, or other parts of the body. These can spread from person to person. Other strains of HPV cause wartsin the genital area. A few of these strains can cause certain cancers: Cancers of the cervix, vagina, and vulva in women Cancers of the penis in men Cancers of the anus and back of the throat, including the base of the tongue and tonsils in both women and men . Treating genital forms of HPV now can help prevent serious health problems in the future. How was I infected? HPV is passed from person to person through contact with infected skin. Everyone with HPV has a different experience. Some people notice genital warts (condyloma) within a few months of exposure. In other people, warts take years to appear or may never appear. This makes it almost impossible to know when or by whom you were infected. How warts form HPV lives inside skin and mucous membrane (including in the mouth and vagina). The virus can make skin cells reproduce more often than they should. These extra skin cells build up into warts. 1. HPV invades the skin. 2. DNA from the virus enters skin cells. 3. HPV causes infected skin cells to multiply and form warts. 4. The virus sheds, allowing it to be passed to others. [employer] last reviewed this educational content on 08/21/201819991938-3178 [employer]. [address] [place] [address]. All rights reserved. This information is not intended as a substitute for professional medical care. Always follow your healthcare professional's instructions. Patient Education Prevention Guidelines,Women Ages 18 to 39 Screening tests and vaccines are an important part of managing your health. A screening test is doneto find possible disorders or diseases in people who don't have any symptoms. The goal is to find a disease early so lifestyle changes can be made and you can be watched more closely to reduce the riskof disease, or to detect it early enough to treat it most effectively. Screening tests are not considered diagnostic, but are used to determine if more testing is needed. Health counseling is essential, too. Below are guidelines for these, for women ages 18 to 39. Talk with your healthcare provider tomake sure youre up-to-date on what you need. Screening Who needs it How often Alcohol misuse All women in this age group At routine exams Blood pressure All women in this age group Yearly checkup if your blood pressure is normal Normal blood pressure is less than 120/80 mm Hg If your blood pressure reading is higher than normal, follow the advice of your healthcare provider Breast cancer All women in this age group should talk with their healthcare providers about the needfor clinical breast exams (CBE)1 Clinical breast exam every 3 years1 Cervical cancer Women ages 21 and older Women between ages 21 and 29 should have a Pap test every 3 years; women between ages 30 and 65 are advised to have a Pap test plus an HPV test every 5 years Chlamydia Sexually active women ages 25 and younger, and women at increased risk for infection (suchas having multiple sex partners) Every year if you're at risk or have symptoms Depression All women in this age group At routine exams Type 2 diabetes, prediabetes All women with no symptoms who are overweight or obese and have 1 or more other risk factors for diabetes At least every 3 years. Also, testing for diabetes during after the 24th week. Type 2 diabetes, prediabetes All women diagnosed with gestational diabetes Lifelong testing every 3 years Type 2 diabetes All women with prediabetes Every year Gonorrhea Sexually active women at increased risk for infection At routine exams Hepatitis C Anyone at increased risk At routine exams HIV All women should be tested at least once for HIV between the ages of 13 and 64 At routine exams.Those with risk factors for HIV should be tested at least annually. Obesity All women in this age group At routine exams Syphilis Women at increased risk for infection should talk with their healthcare provider At routineexams Tuberculosis Women at increased risk for infection should talk with their healthcare provider Ask your healthcare provider Vision All women in this age group At least 1 complete exam in your 20s, and 2 in your 30s Vaccine2 Who needs it How often Chickenpox (varicella) All women in this age group who have no record of this infection or vaccine 2doses; the second dose should be given 4 to 8 weeks after the first dose Hepatitis A Women at increased risk for infection should talk with their healthcare provider 2 dosesgiven at least 6 months apart Hepatitis B Women at increased risk for infection should talk with their healthcare provider 3 dosesover 6 months; second dose should be given 1 month after the first dose; the third dose should be given at least 2 months after the second dose and at least 4 months after the first dose Haemophilus influenzaeType B (HIB) Women at increased risk for infection should talk with their healthcare provider 1 to 3 doses Human papillomavirus (HPV) All women in this age group up to age 26 3 doses; the second dose should be given 1 to 2 months after the first dose and the third dose given 6 months after the first dose Influenza (flu) All women in this age group Once a year Measles, mumps, rubella (MMR) All women in this age group who have no record of these infections or vaccines 1 or 2 doses Meningococcal Women at increased risk for infection should talk with their healthcare provider 1 or more doses Pneumococcal conjugate vaccine (PCV13)and pneumococcal polysaccharidevaccine(PPSV23) Women at increased risk for infection should talk with their healthcare provider PCV13: 1 dose ages 19 to 65 (protects against 13 types of pneumococcal bacteria) PPSV23: 1 to2 doses through age 64, or 1 dose at 65 or older (protects against 23 types of pneumococcal bacteria) Tetanus/diphtheria/pertussis (Td/Tdap) booster All women in this age group Td every 10 years, or a one-time dose of Tdap instead of a Td booster after age 18, then Td every 10 years Counseling Who needs it How often BRCA gene mutation testing for breast and ovarian cancer susceptibility Women with increased risk for having gene mutation When your risk is known Breast cancer and chemoprevention Women at high risk for breast cancer When your risk is known Diet and exercise Women who are overweight or obese When diagnosed, and then at routine exams Domestic violence Women at the age in which they are able to have children At routine exams Sexually transmitted infection prevention Women who are sexually active At routine exams Skin cancer Prevention of skin cancer in fair-skinned adults At routine exams Use of tobacco and the health effects it can cause All women in this age group Every visit 1 According to the ACS, women ages 20 to 39 years should have a clinical breast exam (CBE) as part of their routine health exam every 3 years. Breast self-exams are an option for women starting in their 20s.But the USPSTF does not recommend CBE. [employer] last reviewed this educational content on 12/21/201619990147-9033 [employer]. [address] [place] [address]. All rights reserved. This information is not intended as a substitute for professional medical care. Always follow your healthcare professional's instructions. Patient Education What Are Sexually Transmitted Infections (STIs)? A sexually transmitted infection (STI) is an infection that is spread during sex. An STI can also becalled STD for sexually transmitted disease. You can become infected with an STI if you have sex with someone who has an STI. Any sex that involves the penis, vagina, anus, or mouth can spread these infections. Some STIs also spread through body fluids such as semen, vaginal fluid, or blood. Others spread through contact with infected skin. The most common STIs are chlamydia, genital warts , genital herpes, syphilis, HIV, gonorrhea, and trichomoniasis. Who is at risk? It doesnt matter if youre straight or saldana, male or female, young or old. Any person who has sex can get an STI. Your risk increases if: You have more than one partner. The more partners you have, the greater your risk. Your partner has other partners. If your partner is exposed to an STI, you could be, too. You or your partner have had sex with other people in the past. Either of you might be carrying an STI from an earlier partner. You have an STI. The STI may cause sores or other health problems that increase your risk for newinfections. Your risk will stay high unless you are treated for your current STI and change the behaviors that put you at risk. Prevent future problems Left untreated, certain STIs can lead to cancer or, rarely, . Some can harm unborn babies whosemothers are infected. Others can cause you to not be able to have children (sterility) or can affectchanges in behavior or your ability to think. You can prevent these problems with safer sex, regularcheckups, and early treatment. Always use a latex condom when you have sex. Get tested if youre at risk. And get treated early if you have an STI. Using a latex condom every time you have sex can reduce your risk of STIs. Getting checked The only sure way to know if you have an STI is to get checked by a healthcare provider. If you notice a change in how your body looks or feels, have it checked out. But keep in mind, STIs dont always show symptoms. So if youre at risk for STIs, get checked regularly. If you find you have an STI, have your partner get treatment. If not, his or her health is at risk. And left untreated, your partner could pass the STI back to you, or on to others. Common symptoms Be alert to any changes in your body and your partners body. Symptoms may appear in or near the vagina, penis, rectum, mouth, or throat. They may include: Unusual discharge Lumps, bumps, or rashes Sores that may be painful, itchy, or painless Itchy skin Burning with urination Pain in the pelvis, belly (abdomen), or rectum Bleeding from the rectum Even if you dont have symptoms You may have an STI even if you dont have symptoms. If you think you are at risk, get checked. Goto a clinic or to your healthcare provider. If your partner has an STI, you need to be tested even if you feel fine. Vaccines to prevent disease Vaccines are available to prevent hepatitis A and hepatitis B. These are 2 kinds of STIs. There is also a vaccine to prevent human papillomavirus (HPV). This is a virus that can be passed from person to person through sexual contact. Ask your healthcare provider whether any of these vaccines is right for you. [employer] last reviewed this educational content on 02/20/201819997845-6960 [employer]. [address] [place] [address], [place] [address]. All rights reserved. This information is not intended as a substitute for professional medical care. Always follow your healthcare professional's instructions. Patient Education Understanding HIV and AIDS It's important to know how HIV can get into your body and what happens once its there. Then youll be better prepared to protect yourself or others against this virus. A person with HIV can look and feel perfectly healthy. But that person can give HIV to others as soon as he or she is infected with the virus. Having unsafe or unprotected sex or sharing needles puts you at risk for HIV. Talk with your healthcare provider about ways to protect yourself or a loved one from getting HIV. How HIV infection progresses After HIV enters the body, it attacks the immune system in the stages below. A person with HIV can infect others once the virus gets into the blood. HIV with no symptoms. A person with HIV may have no symptoms for years. The only sign of infection may be a positive blood test for HIV 2 weeks to 3 months or later after HIV enters the body. HIV with symptoms. Some people develop an illness similar to mono (mononucleosis) 2 to 4 weeks after the virus enters the body. This is called acute retroviral syndrome. Symptoms may include swollen lymph glands, chills, fever, night sweats, weakness, weight loss, skin rashes, mouth ulcers, or sore t hroat. Symptoms may be mild or the person can feel quite sick. Even without treatment the symptoms almost always go away in a few days or up to 2 to 3 weeks. Then the person has no symptoms, often for years. But over time the immune system starts to get weaker and symptoms start appearing. People at this stage may have a yeast infection in the mouth (oral thrush), shingles, skin problems, pneumonia, diarrhea that keeps coming back, or weight loss. AIDS. AIDS is the most advanced stage of HIV infection, when the immune system is severely weakened.Certain rare diseases and cancers that normally would not occur, now can occur because the body can no longer fight them well enough. It is often these diseases that cause in people with AIDS. HIV may also directly attack the brain and nervous system. This causes seizures and loss of memory and body movement. It also affects many other parts of the body. This leads to problems such as anemia, low white blood cell count, diarrhea, belly pain, skin problems, and many others. How HIV enters the body HIV is carried in semen, vaginal fluid, blood, and breastmilk. During sex, HIV can enter the body. It gets in through the fragile tissue and linings, sores, or cuts in or around the vagina, penis, anus, and mouth. During drug use, tattooing, or body piercing, the virus can enter the blood through an infected needle. A mother who has HIV can infect her child during , childbirth, and . [employer] last reviewed this educational content on 08/21/201819994516-2070 [employer]. [address] [place] [address]. All rights reserved. This information is not intended as a substitute for professional medical care. Always follow your healthcare professional's instructions. Patient Education 4 Steps for Eating Healthier Changing the way you eat can improve your health. It can lower your cholesterol and blood pressure, and help you stay at a healthy weight. Your diet doesnt have to be bland and boring to be healthy.Just watch your calories and follow these steps: Step 1. Eat fewer unhealthy fats Choose more fish and lean meats instead of fatty cuts of meat. Skip butter and lard, and use less margarine. Pass on foods that have palm, coconut, or hydrogenated oils. Eat fewer high-fat dairy foods like cheese, ice cream, and whole milk. Get a heart-healthy cookbook and try some low-fat recipes. Step 2.Go light on salt Keep the saltshaker off the table. Limit high-salt ingredients, such as soy sauce, bouillon, and garlic salt. Instead of adding salt when cooking, season your food with herbs and flavorings. Try lemon, garlic, and onion, or salt-free herb seasonings. Limit convenience foods, such as boxed or canned foods and restaurant food. Read food labels and choose lower-sodium options. Step 3. Limit sugar Pause before you add sugars to pancakes, cereal, coffee, or tea. This includes white and brown table sugar, syrup, honey, and molasses. Cut your usual amount by half. Use non-sugar sweeteners. Stevia, aspartame, and sucralose can satisfy a sweet tooth without adding calories. Swap out sugar-filled soda and other drinks. Buy sugar-free or low-calorie beverages. Remember water is always the best choice. Read labels and choose foods with less added sugar. Keep in mind that dairy foods and foods with fruit will have some natural sugar. Cut the sugar in recipes by 1/3 to 1/2. Boost the flavor with extracts like almond, vanilla, or orange. Or add spices such as cinnamon or nutmeg. Step 4. Eatmore fiber Eat fresh fruits and vegetables every day. Boost your diet with whole grains. Go for oats, whole-grain rice, and bran. Add beans and lentils to your meals. Drink more water to match your fiber increase to help prevent constipation. [employer] last reviewed this educational content on 08/21/201619991252-2571 [employer]. [address] [place] [address], [place] [address]. All rights reserved. This information is not intended as a substitute for professional medical care. Always follow your healthcare professional's instructions. Patient Education Understanding USDA MyPlate The USDA (U.S. Department of Agriculture) has guidelines to help you make healthy food choices. These are called MyPlate. MyPlate shows the food groups that make up healthy meals using the image of a place setting. Before you eat, think about the healthiest choices for what to put onto your plate or into your cup or bowl. To learn more about building a healthy plate, visit www.choosemyplate.gov. The food groups Fruits. Any fruit or 100% fruit juice counts as part of the Fruit Group. Fruits may be fresh, canned, frozen, or dried, and may be whole, cut-up, or pureed. Make half your plate fruits and vegetables. Vegetables. Any vegetable or 100% vegetable juice counts as a member of the Vegetable Group. Vegetables may be fresh, frozen, canned, or dried. They can be served raw or cooked and may be whole, cut-up, or mashed. Make half your plate fruits and vegetables. Grains. All foods made from grains are part of the Grains Group. These include wheat, rice, oats,cornmeal, and barley such as bread, pasta, oatmeal, cereal, tortillas, and grits. Grains should be no more than a quarter of your plate. At least half of your grains should be whole grains. Protein. This group includes meat, poultry, seafood, beans and peas, eggs, processed soy products(like tofu), nuts (including nut butters), and seeds. Make protein choices no more than a quarter ofyour plate. Meat and poultry choices should be lean or low fat. Dairy. All fluid milk products and foods made from milk that contain calcium, like yogurt and cheese, are part of the Dairy Group. (Foods that have little calcium, such as cream, butter, and cream cheese, are not part of the group.) Most dairy choices should be low-fat or fat-free. Oils. These are fats that are liquid at room temperature. They include canola, corn, olive, soybean, and sunflower oil. Foods that are mainly oil include mayonnaise, certain salad dressings, and soft margarines. You should have only 5 to 7 teaspoons of oils a day. You probably already get this muchfrom the food you eat. [employer] last reviewed this educational content on 10/21/201619992347-1494 [employer]. [address] [place] [address]. All rights reserved. This information is not intended as a substitute for professional medical care. Always follow your healthcare professional's instructions. Patient Education Levonorgestrel intrauterine device (IUD) Brand Names: Kyleena, LILETTA, Mirena, Tika What is this medicine? LEVONORGESTREL IUD (NISSA tony) is a contraceptive ( control) device. The device is placed inside the uterus by a healthcare professional. It is used to prevent . This device can also be used to treat heavy bleeding that occurs during your period. How should I use this medicine? This device is placed inside the uterus by a health pharmacist critical care. Talk to your pilot fuel engineer regarding the use of this medicine in children. Special care may be needed. What side effects may I notice from receiving this medicine? Side effects that you should report to your doctor or health pharmacist critical care as soon as possible: allergic reactions like skin rash, itching or hives, swelling of the face, lips, or tongue fever, flu-like symptoms genital sores high blood pressure no menstrual period for 6 weeks during use pain, swelling, warmth in the leg pelvic pain or tenderness severe or sudden headache signs of stomach cramping sudden shortness of breath trouble with balance, talking, or walking unusual vaginal bleeding, discharge yellowing of the eyes or skin Side effects that usually do not require medical attention (report to your doctor or health pharmacist critical care if they continue or are bothersome): acne breast pain change in sex drive or performance changes in weight cramping, dizziness, or faintness while the device is being inserted headache irregular menstrual bleeding within first 3 to 6 months of use nausea What may interact with this medicine? Do not take this medicine with any of the following medications: amprenavir bosentan fosamprenavir This medicine may also interact with the following medications: aprepitant armodafinil barbiturate medicines for inducing sleep or treating seizures bexarotene boceprevir griseofulvin medicines to treat seizures like carbamazepine, ethotoin, felbamate, oxcarbazepine, phenytoin, topiramate modafinil pioglitazone rifabutin rifampin rifapentine some medicines to treat HIV infection like atazanavir, efavirenz, indinavir, lopinavir, nelfinavir, tipranavir, ritonavir [place]'s wort warfarin What if I miss a dose? This does not apply. Depending on the brand of device you have inserted, the device will need to be replaced every 3 to 5 years if you wish to continue using this type of control. Where should I keep my medicine? This does not apply. What should I tell my health care provider before I take this medicine? They need to know if you have any of these conditions: abnormal Pap smear cancer of the breast, uterus, or cervix diabetes endometritis genital or pelvic infection now or in the past have more than one sexual partner or your partner has more than one partner heart disease history of an ectopic or tubal immune system problems IUD in place liver disease or tumor problems with blood clots or take blood-thinners seizures use intravenous drugs uterus of unusual shape vaginal bleeding that has not been explained an unusual or allergic reaction to levonorgestrel, other hormones, silicone, or polyethylene, medicines, foods, dyes, or preservatives or trying to get breast-feeding What should I watch for while using this medicine? Visit your doctor or health pharmacist critical care for regular check ups. See your doctor if you or your partner has sexual contact with others, becomes HIV positive, or gets a sexual transmitted disease. This product does not protect you against HIV infection (AIDS) or other sexually transmitted diseases. You can check the placement of the IUD yourself by reaching up to the top of your vagina with clean fingers to feel the threads. Do not pull on the threads. It is a good habit to check placement after each menstrual period. Call your doctor right away if you feel more of the IUD than just the threads or if you cannot feel the threads at all. The IUD may come out by itself. You may become if the device comes out. If you notice that the IUD has come out use a backup control method like condoms and call your health care provider. Using tampons will not change the position of the IUD and are okay to use during your period. This IUD can be safely scanned with magnetic resonance imaging (MRI) only under specific conditions.Before you have an MRI, tell your healthcare provider that you have an IUD in place, and which type of IUD you have in place. NOTE:This sheet is a summary. It may not cover all possible information. If you have questions aboutthis medicine, talk to your doctor, pharmacist, or health care provider. Copyright 2018 [employer] documented in this encounter Progress Notes Agnieszka Chamorro FNP - 09/27/2019 3:15 PM CDTIUD INSERTION PROCEDURE NOTE Preoperative Diagnoses: Liletta The risks, benefits and alternatives were discussed. The patient voiced her understanding. She wished to proceed and an informed consent was obtained. Patient has been identified with name and and will be undergoing IUD placement. Indications for IUD are: patient desires. Patient, procedure and site have been confirmed by the following clinicians: Yoandy Patricio RN. Timeout performed by JOJO Patricio at 1600. Procedure: The patient is placed on the exam table in a supine position. Vaginal speculum inserted.The cervix was cleansed with Hibiclens. Uterus sounded to 9 cm. IUD inserted without difficulty. String visible and trimmed. The patient tolerated the procedure well and there were no complications. Patient was able to feel strings. Post-procedure instructions given. Patient verbalized understanding. Findings/Assessment IUD inserted Plan Encounter for initial prescription of contraceptives, unspecified contraceptive Encounter for IUD insertion Comment: patient desires Lilette Plan: Patient desires Liletta for contraception. Provider has reviewed risks, benefits and alternatives contraception methods. Provider has also reviewed use, side effects and effectiveness of desiredBCM vs other BCM. Encouraged abstinence until menses. Encouraged use of condoms as back up x 1 month and for safer sex. Liletta Lot #: [id number] Expiration date: 03/2023 Removal date: 09/26/2024 JOJO Patricio 09/27/2019 4:14 PM Agnieszka Chamorro FNP - 09/27/2019 3:15 PM CDT Chief complaint: Chief Complaint Patient presents with Well Woman Exam HPI Patient is a here for WWE and contraception management. Patient denies any abdominal/pelvicpain or verbalized any other concerns. Patient reports LMP was 09/16/2019. Patient reports last sexual intercourse was before delibery ( over 6wks ago) and desires to use IUD for BCM. Patient denies current or past physical, sexual [...] Past Medical History: Diagnosis Date Anemia, 08/06/2019 ongoing, taking iron supplements gestional diabetes 2007 Family History Problem Relation Age of Onset No Significant Medical Problems Mother Diabetes Maternal Aunt Diabetes Maternal Uncle Heart Maternal Grandfather Diabetes Maternal Grandfather Cancer Paternal Grandmother Family Status Relation Name Status Mo Alive Fa Alive Sis Alive Bro Alive MAunt Alive MUnc Alive PAunt Alive PUnc Alive MGMo Alive MGFa PGMo PGFa Past Surgical History: Procedure Laterality Date ANKLE ARTHROPLASTY 09/07/2019 broken ankle Social History Socioeconomic History Marital status: Single [...] Male control/protection: None Comment: last sexual intercourse before delivery of baby Lifestyle Physical activity: Days per week: Not [...] file Social History Narrative Merged History Encounter Mormonism preference none. Patient lives with fiance and child. Social History Substance and Sexual Activity Sexual Activity Yes Partners: Male control/protection: None Comment: last sexual intercourse before delivery of baby Labs Labs are pending. Radiology No new radiology. Allergies Ryanne is allergic to iodine. Medications Ryanne has a current medication list which includes the following prescription(s): tramadol, ferroussulfate, and vitamin w/fa. Review of Systems Constitutional: [...] intolerance, weight gain and weight loss. BP 134/88 (BP Location: Right arm, Patient Position: Sitting, BP CUFF SIZE: Adult Medium) | Pulse 100 | Temp 36.6 C (97.9 F) (Oral) | Resp 16 | Ht 5' 4" (1.626 m) | Wt 214 lb 2 oz (97.1 kg) |LMP 11/04/2018 (Approximate) | BMI 36.75 kg/m Pregravid BMI: 34.1 Physical Exam Vitals reviewed. Constitutional: She is oriented to person, place, and time. She appears well- developed, well-nourished and well-groomed. She has no deformities. Neck: No tenderness and no mass. No thyroid nodules and no thyromegaly palpated. Cardiovascular: Regular rate and rhythm. No murmur auscultated. Pulmonary/Chest: Breath sounds clear to auscultation. Normal inspiratory effort. Abdominal: Abdomen is soft. No mass palpated. No tenderness present. There is no guarding. Neuro/Psychiatric: She has a normal mood and affect. She is oriented to person, place, and time. Skin: Skin normal. No lesion and no rash present. Breast: Right breast exhibits no mass, no nipple discharge and no tenderness. Left breast exhibits no mass, no nipple discharge and no tenderness. Normal left breast and normal right breast Rectal: normal rectum External genitalia: Normal external genitalia appropriate for age. Normal hair distribution. No labial lesion. Instructional Design Specialist present for the exam: JOSE ARMANDO Kim student Vagina:Normal vagina. No lesion inspected. No abnormal vaginal discharge found. Cervix: Normal cervix. No lesion. No tenderness and no discharge present. Uterus: Uterus is normal size and non-tender. 8cm Normal uterus Adnexa: Right adnexa without tenderness or mass. Left adnexa without tenderness or mass. Normal leftadnexa and normal right adnexa Anus/perineum: Normal perineum. Assessment/Plan Well woman exam (primary encounter diagnosis) Comment: Routine WWE Plan: Denies zika virus risk, signs and symptoms such as fever,rash,joint pain, conjunctivitis (red eyes), muscle pain, headaches; outside [place] travel to areas affected by zika, and FOB exposure to zika.Educated on use of mosquito repellent. Encounter for initial prescription of contraceptives, unspecified contraceptive Encounter for IUD insertion Comment: patient desires Lilette Plan: Patient desires Liletta for contraception. Provider has reviewed risks, benefits and alternatives contraception methods. Provider has also reviewed use, side effects and effectiveness of desiredBCM vs other BCM. Encouraged abstinence until menses. Encouraged use of condoms as back up x 1 month and for safer sex. Anemia of mother in , condition Comment: HGB 8.8 and HCT 28.4 Plan: CBC drawn today Class 2 obesity with body mass index (BMI) of 36.0 to 36.9 in adult, unspecified obesity type, unspecified whether serious comorbidity present BMI 36.0-36.9,adult Comment: BMI: 36.75 Plan: Patient encouraged to limit weight gain [...] 50% of the visit time. JOJO Patricio 09/27/2019 4:11 PM Camilla Colmenares RN - 09/27/2019 3:15 PM CDT39 year old presented to the clinic for WWE. 1) Previous BCM: none 2) Desired BCM: liletta 3) LMP: 09/16/2019 4) Last [place]: Recently , Before 5) Last Pap: 09/09/2018 Results: Neg HPV: neg 6) Tdap in last 10 years? yes 7) Have you had a flu vaccine this season? yes 8) Would patient like STD testing? no 9) C/O none 10) Patient denies history of physical, emotional, or sexual abuse. Patient states she currently feels safe at home. Patient in clinic for IUD insert. Informed consent signed and obtained, risks reviewed, patient verbalized understanding. Liletta Lot # [id number] Exp: 03/2023 IUD Liletta dispensed from clinic stock. documented in this encounter Plan of Treatment Name Type Priority Associated Diagnoses Order S chedule CBC WITH DIFFERENTIAL LAB Routine Anemia of mother in Ordered: 09/27/2019 , condition Health Maintenance Due Date Last Done Comments INFLUENZA VACCINE (#1) 2019 02/01/2019 Depression Screening 06/13/2020 06/14/2019 PAP SMEAR 09/09/2021 09/09/2018 DTaP,Tdap,and Td Vaccines (2 - Td) 06/13/2029 06/14/2019 PNEUMOCOCCAL 0-64 YEARS COMBINED Aged Out No longer eligible based on SERIES patient's age to complete this topic documented as of this encounter Procedures Procedure Name Priority Date/Time Associated Diagnosis Comme nts POCT TEST Routine 09/27/2019 3:28 PM R esults for this CDT procedure are i n the results section. documented in this encounter Results POCT TEST (09/27/2019 3:28 PM CDT) Pathologist Sig nature POCT PREG Negative On board controls acceptable Yes with C Line POCT PREG LOT # POCT PREG TEST DATE Specimen Urine - URINE, CLEAN CATCH documented in this encounter Visit Diagnoses Diagnosis Encounter for initial prescription of co ntraceptives, unspecified contraceptive Anemia of mother in , postpartu m condition Anemia, Class 2 obesity with body mass index (BM I) of 36.0 to 36.9 in adult, unspecified obesity type, unspecified whether seriou s comorbidity present BMI 36.0-36.9,adult Body Mass Index 36.0-36.9, adult documented in this encounter Administered Medications Medication Order MAR Action Action Date Dose Rate Site levonorgestrel (LILETTA) IUD 1 Given 09/27/2019 3:57 PM CDT 1 D evice Device 1 Device, Intrauterine, ONCE, 1 dose, 09/27/19 at 1700, Routine documented in this encounter Insurance Payer Benefit Plan / Subscriber ID Effective Dates Phone Addre ss Type Group [facility] xxxxxxxxx 2019-[facility] Medicaid COMM PLAN - t MANAGED MEDICAID [id number] documented as of this encounter Advance Directives Name Relationship Healthcare Agent Relationship Co mmunication Theresa Duncan Life Partner Primary healthcare agent
--- OUTSIDE RECORDS SUMMARY | 2019-12-02 05:04 | XMS REPORT | Summary of Care ---
:1980 Author Organization [facility] Address [address] [place] [address] Care Team Providers Name Role Phone Agnieszka Chamorro [facility] Primary Care Provider Reason for Visit Reason Comments Well Woman Exam Encounter Details Date Type Department Care Team Description 09/27/2019 Office Visit [facility]- Agnieszka Chamorro Well woman exam (Primary Dx); JOJO Oseguera Encounter for initial prescription of co ntraceptives, unspecified contraceptive; [address] Encounter for IUD insertion; Street Robert Anemia of mother in , postpartu m condition; [place], [place] [address] Class 2 obesity with body mass index (BM I) of 36.0 to 36.9 in adult, unspecified obesity type, unspecified whether serious comorbidity present; [address] BMI 36.0-36.9,adult [phone] Allergies Active Allergy Reactions Severity Noted Date [...] want to have children in the future. [employer] last reviewed this educational content on 01/21/201719995373-1227 The [employer]. [address] [place] [address]. All rights reserved. This information is not intended as a substitute for professional medical care. Always follow your healthcare professional's instructions. Patient Education Clinical Breast Exam Many health organizations recommend a yearly clinical breast exam. This exam may be done by a retail special event associate, family healthcare provider, nurse practitioner, nurse twist tester, or specially trained nurse. Yearly breast exams [...] Guidelines for having clinical breast exams The [place] [employer] Gynec[employer] recommends that [...] provider about what is best for you. [employer] last reviewed this educational content on 10/21/201619996463-3513 The [employer]. [address] [place] [address]. All rights reserved. This information is not [...] breast self-examination (BSE). These experts include the [place] [employer] and the [place] [employer] Obstetricians and Gynecologists. Some experts [...] benign. This means they are not cancer. [employer] last reviewed this educational content on 10/21/201619999539-3420 The [employer]. [address] [place] [address]. All rights reserved. This information is not [...] allowing it to be passed to others. [employer] last reviewed this educational content on 08/21/201819995749-5705 The [employer]. [address] [place] [address]. All rights reserved. This information is not [...] 20s.But the USPSTF does not recommend CBE. [employer] last reviewed this educational content on 12/21/201619996799-5028 The [employer]. [address] [place] [address]. All rights reserved. This information is not [...] of these vaccines is right for you. [employer] last reviewed this educational content on 02/20/201819997086-8908 The [employer]. [address] [place] [address], [place] [address]. All rights reserved. This information is not [...] her child during , childbirth, and . [employer] last reviewed this educational content on 08/21/201819996305-1816 The [employer]. [address] [place] [address]. All rights reserved. This information is not [...] your fiber increase to help prevent constipation. [employer] last reviewed this educational content on 08/21/201619993180-1517 The [employer]. [address] [place] [address], [place] [address]. All rights reserved. This information is not [...] get this muchfrom the food you eat. Zopim[employer]iff last reviewed this educational content on 10/21/201619993030-7132 The [employer]. [address] [place] [address]. All rights reserved. This information is not [...] placed inside the uterus by a health nursing care attendant. Talk to your quantitative analyst developer regarding the use of this medicine in children. Special care may be needed. What side effects may I notice from receiving this medicine? Side effects that you should report to your doctor or health nursing care attendant as soon as possible: allergic reactions like [...] attention (report to your doctor or health nursing care attendant if they continue or are bothersome): acne [...] atazanavir, efavirenz, indinavir, lopinavir, nelfinavir, tipranavir, ritonavir [place]'s wort warfarin What if I miss a [...] this medicine? Visit your doctor or health nursing care attendant for regular check ups. See your doctor [...] and for safer sex. Liletta Lot #: [id number] Expiration date: 03/2023 Removal date: 09/26/2024 JOJO [...] 38w0d 7 lb (3.175 kg) M VAGINAL LNAI 3 Term 07/16/06 38w0d 7 lb (3.175 [...] file Gets together: Not on file Attends yazidi service: Not on file Active member of [...] file Social History Narrative Merged History Encounter Quaker preference none. Patient lives with fiance and [...] age. Normal hair distribution. No labial lesion. Electrical Tech present for the exam: JOSE ARMANDO Kim [...] BCM: liletta 3) LMP: 09/16/2019 4) Last [place]: Recently , Before 5) Last Pap: 09/09/2018 [...] reviewed, patient verbalized understanding. Liletta Lot # [id number] Exp: 03/2023 IUD Liletta dispensed from clinic stock. documented in this encounter Plan of Treatment Name Type Priority Associated Diagnoses Date/Ti me CBC WITH DIFF LAB Routine Anemia of mother in 020 4:16 PM CDT , condition CBC WITH DIFFERENTIAL LAB Routine Anemia of mother in 09/27/2019 4:16 PM CDT , condition Health Maintenance Due Date Last [...] Effective Dates Phone Addre ss Type Group [facility] xxxxxxxxx 2019-Presen Medicaid COMM PLAN - t MANAGED MEDICAID [id number] 1 documented as of this encounter Advance Directives Name Relationship Healthcare Agent Relationship Co mmunication Theresa Duncan Life Partner Primary healthcare agent
--- OUTSIDE RECORDS SUMMARY | 2019-12-02 05:04 | XMS REPORT ---
:1980 Author Organization eClinicalWorks Care Team Providers Name Role Phone Jean Carlos Soto Provider Role Unavailable Allergies, Adverse Reactions, Alerts Substance Reaction Event Type N.K.D.A. Info Not Available Non Drug Allergy Problems Problem Type Condition Code Onset Dates Condition Statu s Assessment Pain of joint of left ankle and M25.572 Active foot Assessment Acute left ankle pain M25.572 Active Assessment Displaced fracture of lateral S82.62XD Active malleolus of left fibula, subsequent encounter for closed fracture with routine healing Medications Medication Code Code Instructions Start End Status Dosage System Date Date Tramadol HCl [facility] 10391602659 50 MG Orally 1 September 05September Active as directed po q 6 hrs prn 2019, pain 2019 Amoxicillin [facility] [address]-09 Active not de fined tramadol NDC 0 Active not defined Hydrocodone-Ac [facility] 56947185129 7.5-325 MG Oral Activ e (Schedule etaminophen II Drug) TAKE 1 TABLET BY MOUTH EVERY 4 TO 6 HOURS NEEDED FOR PAIN Results No Known Results Summary Purpose eClinicalWorks Submission
--- OUTSIDE RECORDS SUMMARY | 2019-12-02 05:04 | XMS REPORT | Summary of Care ---
:1980 Author Organization [facility] Address [address] [place] [address] Care Team Providers Name Role Phone Chamorro, Rosmil Montgomery [facility] Primary Care Provider Encounter Details Date Type Department Care Team Description 09/27/2019 Orders Only [facility] Doctor Unassigned, No [address] [facility] [place] [address] [address] [place] [address] Allergies No Known Allergiesdocumented as of this [...] of 09/27/2019) Active Problems Problem Noted Date delivery 08/06/2019 [...] Treatment Date Type Specialty Care Team Description 09/27/2019 Office Visit [facility] Agnieszka Chamorro, ENVIRONMENTAL HEALTH AND SAFETY INTERN [address] [address] [phone] Health Maintenance Due Date Last Done Comments INFLUENZA VACCINE (#1) 2019 02/01/2019 Depression Screening 06/13/2020 06/14/2019 PAP SMEAR 09/09/2021 09/09/2018 DTaP,Tdap,and Td Vaccines (2 - Td) 06/13/2029 06/14/2019 PNEUMOCOCCAL 0-64 YEARS COMBINED Aged Out No longer eligible based on SERIES patient's age to complete this topic documented as of this encounter Procedures Procedure Name Priority Date/Time Associated Diagnosis Comme nts NOTICE OF PRIVACY Routine 09/27/2019 3:09 PM CDT PRACTICES documented in this encounter Results Not on filedocumented in this encounter Insurance Payer Benefit Plan / Subscriber ID Effective Dates Phone Addre ss Type Group [facility] xxxxxxxxx 2019-Pres Medicaid COMM PLAN - t MANAGED MEDICAID documented as of this encounter Advance Directives Name Relationship Healthcare Agent Relationship Co mmunication Theresa Duncan Life Partner Primary healthcare agent
--- OUTSIDE RECORDS SUMMARY | 2019-12-02 05:04 | XMS REPORT ---
:1980 Author Organization eClinicalWorks Care Team Providers Name Role Phone Jean Carlos Soto Provider Role Unavailable Allergies No Known Allergies Problems No Known Problems Medications Medication Code Code Instructions Start End Status Dosage System Date Date Tramadol HCl [facility] [id number] 50 MG Orally 1 September 05September Active as directed po q 6 hrs prn 2019, pain 2019 Results No Known Results Summary Purpose eClinicalWorks Submission
--- OUTSIDE RECORDS SUMMARY | 2019-12-02 05:04 | XMS REPORT | Continuity of Care Document ---
:1980 Author Organization [facility] t Address [address] [place] [address] Care Team Providers Name Role Phone Ulises Angelo Attending Clinician Problems This patient has no known problems. Allergies, Adverse Reactions, Alerts This patient has no known allergies or adverse reactions. Medications Ordered Filled Start Stop Current Ordering Indication Dosage Frequency Signature Comments Components Source Medication Medication Date Date Medication? Clinician (SIG) Name Name Amoxicillin Amoxicillin Yes Jean Carlos not [facility] tramadol tramadol Yes Jean Carlos not [facility] Hydrocodone Hydrocodone Yes Jean Carlos (Schedule [facility]) [facility] 1 [facility] TABLET BY l MOUTH Outpati EVERY 4 TO ent 6 HOURS Clinics NEEDED FOR PAIN Procedures This patient has no known procedures. Encounters Start End Encounter Admission Attending Care Care Encounter Source Date/Time Date/Time Type Type Clinicians Facility Department ID 2019-11-15 2019-11-15 Outpatient Vale Mariano [id number] [facility] [address] 15[facility]02[facility] 15[facility] 2019-11-04 2019-11-04 Outpatient Vale Mariano [id number] 09:06:00 09:06:00 [facility] ent Clinics 2019-10-20 2019-10-20 Outpatient Vale Mariano [id number] 13:00:00 13:00[facility]00 [facility] 2019-09-27 2019-09-27 Office SOLANGE Chamorro [id number] 15:23:33 15:53:33 Visit Agnieszka Montgomery EMPLOYMENT APPEALS EXAMINER [id number] [facility] [id number] MATERNAL [id number] & CHILD [address] [place] [address] 2019-09-20 2019-09-20 Outpatient Vale Mariano [id number] [address] 14:00:00 14:00[facility]00 [facility] 2019-09-12 2019-09-12 Outpatient Vale Mariano [id number] 11:10:00 11:10:00 [facility] 2019-09-06 2019-09-06 Outpatient Vale Mariano [id number] 16:53:00 16:53:00 [facility] 2019-08-30 2019-08-30 Outpatient Vale Mariano [id number] [facility] 13:30:00 13:30:00 [facility] Results This patient has no known results.
--- OUTSIDE RECORDS SUMMARY | 2019-12-02 05:05 | XMS REPORT ---
:1980 Author Organization eClinicalWorks Care Team Providers Name Role Phone Jean Carlos Soto Provider Role Unavailable Allergies No Known Allergies Problems No Known Problems Medications No Known Medications Results No Known Results Summary Purpose eClinicalWorks Submission
--- OUTSIDE RECORDS SUMMARY | 2019-12-02 05:05 | XMS REPORT | Summary of Care ---
:1980 Author Organization [facility] Address [address] [place] [address] Care Team Providers Name Role Phone Agnieszka Chamorro [facility] Primary Care Provider Reason for Visit Reason Comments Well Woman Exam Encounter Details Date Type Department Care Team Description 09/27/2019 Office Visit [facility]- Agnieszka Chamorro Well woman exam (Primary Dx); JOJO Oseguera Encounter for initial prescription of co ntraceptives, unspecified contraceptive; [address] Encounter for IUD insertion; [address] Anemia of mother in , postpartu m condition; [place], [place] [address] Class 2 obesity with body mass index (BM I) of 36.0 to 36.9 in adult, unspecified obesity type, unspecified whether serious comorbidity present; [address] BMI 36.0-36.9,adult [phone] Allergies Active Allergy Reactions Severity Noted Date [...] want to have children in the future. [employer] last reviewed this educational content on 01/21/201719991731-1153 The [employer]. [address] [place] [address]. All rights reserved. This information is not intended as a substitute for professional medical care. Always follow your healthcare professional's instructions. Patient Education Clinical Breast Exam Many health organizations recommend a yearly clinical breast exam. This exam may be done by a tellers supervisor, family healthcare provider, nurse practitioner, nurse front desk host, or specially trained nurse. Yearly breast exams [...] Guidelines for having clinical breast exams The [place] [employer]st[employer]ians and Gynecologists recommends that [...] provider about what is best for you. [employer] last reviewed this educational content on 10/21/201619990511-6055 The [employer]. [address] [place] [address]. All rights reserved. This information is not [...] breast self-examination (BSE). These experts include the [place] [employer] and the [place] [employer] of Obstetricians and Gynecologists. Some experts [...] benign. This means they are not cancer. [employer] last reviewed this educational content on 10/21/201619990349-0659 The [employer]. [address] [place] [address]. All rights reserved. This information is not [...] allowing it to be passed to others. [employer] last reviewed this educational content on 08/21/201819997984-8592 The [employer]. [address] [place] [address]. All rights reserved. This information is not [...] 20s.But the USPSTF does not recommend CBE. [employer] last reviewed this educational content on 12/21/201619995887-8[address] The [employer] [place] [address]. All rights reserved. This information is not [...] of these vaccines is right for you. [employer] last reviewed this educational content on 02/20/201819995331-3218 The [employer]. [address] [place] [address], [place] [address]. All rights reserved. This information is not [...] her child during , childbirth, and . [employer] last reviewed this educational content on 08/21/201819996697-6157 The [employer]. [address] [place] [address]. All rights reserved. This information is not [...] your fiber increase to help prevent constipation. [employer] last reviewed this educational content on 08/21/201619991917-8763 The [employer]. [address] [place] [address], [place] [address]. All rights reserved. This information is not [...] get this muchfrom the food you eat. PingThingsCliff last reviewed this educational content on 10/21/201619995841-7447 The [employer]. [address] [place] [address]. All rights reserved. This information is not [...] placed inside the uterus by a health acute care surgeon. Talk to your manager law regarding the use of this medicine in children. Special care may be needed. What side effects may I notice from receiving this medicine? Side effects that you should report to your doctor or health acute care surgeon as soon as possible: allergic reactions like [...] attention (report to your doctor or health acute care surgeon if they continue or are bothersome): acne [...] atazanavir, efavirenz, indinavir, lopinavir, nelfinavir, tipranavir, ritonavir [place]'s wort warfarin What if I miss a [...] this medicine? Visit your doctor or health acute care surgeon for regular check ups. See your doctor [...] and for safer sex. Liletta Lot #: [id number] Expiration date: 03/2023 Removal date: 09/26/2024 JOJO [...] file Gets together: Not on file Attends tenriism service: Not on file Active member of [...] file Social History Narrative Merged History Encounter Sabianism preference none. Patient lives with fiance and [...] age. Normal hair distribution. No labial lesion. Elementary Reading Specialist present for the exam: JOSE ARMANDO [...] BCM: liletta 3) LMP: 09/16/2019 4) Last [place]: Recently , Before 5) Last Pap: 09/09/2018 [...] reviewed, patient verbalized understanding. Liletta Lot # [id number] Exp: 03/2023 IUD Liletta dispensed from clinic [...] Effective Dates Phone Addre ss Type Group [facility] xxxxxxxxx 2019-Presen Medicaid COMM PLAN - t MANAGED MEDICAID [id number] 1 documented as of this encounter Advance Directives Name Relationship Healthcare Agent Relationship Co mmunication Theresa Duncan Life Partner Primary healthcare agent
[2019-12-02] MEDS ORDERED: FAMOTIDINE 20 MG/2 ML VIAL IV ONE (05:47)
[2019-12-02] MEDS ORDERED: MORPHINE 4 MG/ML SYR ONE (05:47)
[2019-12-02] MEDS ORDERED: NA CHLORIDE 0.9% 1,000 ML ONE (05:47)
[2019-12-02] MEDS ORDERED: ONDANSETRON 4 MG/2 ML VIAL ONE (05:47)
[2019-12-02 05:51] LABS: Absolute Lymphocytes (CBC) 1.6 K/uL (0.7-4.9); Basophils % 0.3 % (0-1.3); Hematocrit 39.4 % (36.0-45.0); Lymphocytes % 14.8 % (15.3-44.8); MPV 8.4 fL (7.6-11.3); RBC Red Blood Cell Count 4.71 M/uL (3.86-4.86)
[2019-12-02 06:09] LABS: ALT/SGPT 20 U/L (12-78); AST/SGOT 13 U/L (15-37); Albumin 4.1 g/dL (3.4-5.0); Alkaline Phosphatase 85 U/L (45-117); BUN Blood Urea Nitrogen 13 mg/dL (7-18); Bicarbonate 23 mmol/L (21-32); Bilirubin Direct 0.1 mg/dL (0-0.2); Bilirubin Total 0.5 mg/dL (0.2-1.0); Glucose Level 98 mg/dL (74-106); Lipase 1106 U/L (73-393); Potassium 3.8 mmol/L (3.5-5.1); Protein, Total 7.5 g/dL (6.4-8.2); Sodium Level 141 mmol/L (136-145)
--- NOTE | 2019-12-02 08:23 | RAD REPORT ---
EXAM DESCRIPTION: CTAbdomen Pelvis W Contrast - 12/02/2019 7:02 am CLINICAL HISTORY: Abdominal pain. ABD PAIN COMPARISON: No comparisons TECHNIQUE: Biphasic CT imaging of the abdomen and pelvis was performed with 100 ml non-ionic IV cont rast. All CT scans are performed using dose optimization technique as appropriate and may include automated exposure control or mA/KV adjustment according to patient size. FINDINGS: The lung bases are clear. The liver, spleen, adrenal glands and kidneys are within normal limits. Mild inflammatory changes and edema are seen involving the pancreatic head and uncinate process compatible with mild acute pancrea titis. No complication evident. No bowel obstruction, free air, free fluid or abscess. Small fat containing umbilical hernia. The jon endix is normal. No evidence of significant lymphadenopathy. Mild lumbar degenerative changes. IUD is present in the uterus. IMPRESSION: Mild acute pancreatitis without complication evident.
[2019-12-02 08:45] LABS: Urine Blood NEGATIVE (NEG); Urine Glucose NEGATIVE (NEG); Urine Protein NEGATIVE (NEG); Urine Specific Gravity 1.015 (1.005-1.030)
--- NOTE | 2019-12-02 09:26 | ER ---
Nurse's Notes [facility] Name: Ryanne Trevizo Age: 39 yrs Sex: Female : 1980 Arrival Date: 12/02/2019 Time: 05:04 Bed 8 Private MD: Diagnosis: Acute pancreatitis Presentation: 12/01 05:14 Chief complaint: Patient states: UPPER ABDOMINAL PAIN, RADIATES TO THE BACK ON BOTH rv SIDES, 10/10 PAIN, X 3 DAYS. WITH NAUSEA WITHOUT VOMITING, AND CONSTIPATION. Coronavirus screen: Client denies travel out of the [place] in the last 14 days. At this time, the client does not indicate any symptoms associated with coronavirus-19. Ebola Screen: No symptoms or risks identified at this time. Initial Sepsis Screen: Does the patient meet any 2 criteria? No. Patient's initial sepsis screen is negative. Does the patient have a suspected source of infection? No. Patient's initial sepsis screen is negative. Risk Assessment: Do you want to hurt yourself or someone else? Patient reports no desire to harm self or others. Onset of symptoms was November 29, 2019. 05:14 Method Of Arrival: Ambulatory rv 05:14 Acuity: GAUDENCIO 3 rv Triage Assessment: 05:19 General: Appears uncomfortable, Behavior is calm, cooperative. Pain: Complains of pain rv in epigastric area, right upper quadrant and left upper quadrant Pain radiates to back Pain currently is 10 out of 10 on a pain scale. EENT: No signs and/or symptoms were reported regarding the EENT system. Neuro: Level of Consciousness is awake, alert, obeys commands, Oriented to person, place, time, situation. Cardiovascular: Patient's skin is warm and dry. Respiratory: Airway is patent Respiratory effort is even, unlabored. GI: Abdomen is round non-distended, Reports upper abdominal pain, constipation, nausea. Derm: Skin is intact. APPRENTICE FUNERAL DIRECTOR: 05:22 LMP 11/17/2019 rv Historical: - Allergies: 05:19 No Known Allergies; rv - PMHx: 05:19 dislocating left ankle; rv - PSHx: 05:19 None; rv - Immunization history:: Adult Immunizations up to date. - Social history:: Smoking status: Patient denies any tobacco usage or history of. Screenin:20 Abuse screen: Denies threats or abuse. Denies injuries from another. Nutritional rv screening: No deficits noted. Tuberculosis screening: No symptoms or risk factors identified. Fall Risk None identified. Assessment: 05:22 GI: Bowel sounds present X 4 quads. Abd is soft X 4 quads Abdomen is tender to rv palpation in epigastric area. 07:40 Reassessment: Patient and/or family updated on plan of care and expected duration. Pain em level reassessed. Patient is alert, oriented x 3, equal unlabored respirations, skin warm/dry/pink. rates pain 7/10 Patient states feeling better. Vital Signs: 05:14 BP 135 / 99; Pulse 87; Resp 17; Temp 97.7; Pulse Ox 100% ; Weight 86.18 kg; Pain 10/10; rv 06:33 BP 124 / 89; Pulse 80; Resp 18; Pulse Ox 100% ; ea 07:40 BP 126 / 95; Pulse 64; Resp 18; Pulse Ox 99% on R/A; Pain 7/10; em ED Course: 05:04 Patient arrived in ED. ag3 05:06 Kelton Anne, RN is Primary Nurse. rv 05:17 Triage completed. rv 05:20 Arm band placed on right wrist. Patient placed in the treatment room, on a stretcher, rv Patient notified of wait time. 05:20 Patient has correct armband on for positive identification. Pulse ox on. NIBP on. rv 05:20 Inserted saline lock: 20 gauge in right antecubital area, using aseptic technique. ea Blood collected. 05:24 Vega Dick MD is Attending Physician. [facility] 07:02 CT Abd/Pelvis - IV Contrast Only In Process Unspecified. EDMS 09:52 No provider procedures requiring assistance completed. IV discontinued, intact, em bleeding controlled, No redness/swelling at site. Pressure dressing applied. Administered Medications: 05:38 Drug: NS 0.9% 1000 ml Route: IV; Rate: 1000 ml; Site: right antecubital; ea 09:50 Follow up: IV Status: Completed infusion; IV Intake: 1000ml em 05:38 Drug: Zofran (Ondansetron) 4 mg Route: IVP; Site: right antecubital; ea 06:32 Follow up: Response: No adverse reaction ea 05:38 Drug: Pepcid 20 mg Route: IVP; Site: right antecubital; ea 06:32 Follow up: Response: No adverse reaction ea 05:39 Drug: morphine 4 mg {Note: rass 1.} Route: IVP; Site: right antecubital; ea 06:32 Follow up: Response: No adverse reaction; Pain is decreased; RASS: Alert and Calm (0) ea Intake: 09:50 IV: 1000ml; Total: 1000ml. em Outcome: :25 Discharge ordered by MD. bay :52 Discharged to home ambulatory. em :52 Condition: stable :52 Discharge instructions given to patient, Instructed on discharge instructions, follow up and referral plans. medication usage, Demonstrated understanding of instructions, follow-up care, medications, Prescriptions given X 2. :52 Patient left the ED. em Signatures: Dispatcher [employer] Catracho Bennett RN Blossom Henry RN Malvin Arroyo ea, MD MD ma2 Kelton Anne RN RN rv Gomez, Alice ag3 Holmes, Maurice, MD MD 7 Corrections: (The following items were deleted from the chart) 06:32 06:32 Response: No adverse reaction; Pain is decreased ea ea
--- NOTE | 2019-12-02 09:26 | EDPHYS ---
Physician Documentation [facility] Name: Ryanne Trevizo Age: 39 yrs Sex: Female : 1980 Arrival Date: 12/02/2019 Time: 05:04 Bed 8 Private MD: ED Physician Vega Dick HPI: 12/01 05:41 This 39 yrs old Female presents to ER via Ambulatory with complaints of mh7 Abdominal Pain. 05:41 The patient complains of pain in the right flank. The pain radiates to the abdomen. mh7 Onset: The symptoms/episode began/occurred 3 day(s) ago. Modifying factors: The symptoms are alleviated by nothing. the symptoms are aggravated by movement, palpation/percussion, food/fluids. Associated signs and symptoms: Pertinent positives: nausea, Pertinent negatives: diarrhea, dizziness, dysuria, fever, urinary frequency, headache, hematuria, pain radiating to the lower extremities, vomiting. Severity of pain: At its worst the pain was moderate last night, in the emergency department the pain is unchanged. [employer]: 05:22 LMP 11/17/2019 rv Historical: - Allergies: 05:19 No Known Allergies; rv - PMHx: 05:19 dislocating left ankle; rv - PSHx: 05:19 None; rv - Immunization history:: Adult Immunizations up to date. - Social history:: Smoking status: Patient denies any tobacco usage or history of. ROS: 05:41 Constitutional: Negative for fever, chills, and weight loss, Eyes: Negative for injury, mh7 pain, redness, and discharge, ENT: Negative for injury, pain, and discharge, Neck: Negative for injury, pain, and swelling, Cardiovascular: Negative for chest pain, palpitations, and edema, Respiratory: Negative for shortness of breath, cough, wheezing, and pleuritic chest pain, : Negative for injury, bleeding, discharge, and swelling, MS/Extremity: Negative for injury and deformity, Skin: Negative for injury, rash, and discoloration, Neuro: Negative for headache, weakness, numbness, tingling, and seizure, Psych: Negative for depression, anxiety, suicide ideation, homicidal ideation, and hallucinations, Allergy/Immunology: Negative for hives, rash, and allergies, Endocrine: Negative for neck swelling, polydipsia, polyuria, polyphagia, and marked weight changes, Hematologic/Lymphatic: Negative for swollen nodes, abnormal bleeding, and unusual bruising. Exam: 05:41 Head/Face: Normocephalic, atraumatic. Eyes: Pupils equal round and reactive to light, mh7 extra-ocular motions intact. Lids and lashes normal. Conjunctiva and sclera are non-icteric and not injected. Cornea within normal limits. Periorbital areas with no swelling, redness, or edema. Neck: Trachea midline, no thyromegaly or masses palpated, and no cervical lymphadenopathy. Supple, full range of motion without nuchal rigidity, or vertebral point tenderness. No Meningismus. Chest/axilla: Normal chest wall appearance and motion. Nontender with no deformity. No lesions are appreciated. Cardiovascular: Regular rate and rhythm with a normal S1 and S2. No gallops, murmurs, or rubs. Normal PMI, no JVD. No pulse deficits. Respiratory: Lungs have equal breath sounds bilaterally, clear to auscultation and percussion. No rales, rhonchi or wheezes noted. No increased work of breathing, no retractions or nasal flaring. 05:41 Skin: Warm, dry with normal turgor. Normal color with no rashes, no lesions, and no evidence of cellulitis. MS/ Extremity: Pulses equal, no cyanosis. Neurovascular intact. Full, normal range of motion. Neuro: Awake and alert, GCS 15, oriented to person, place, time, and situation. Cranial nerves II-XII grossly intact. Motor strength 5/5 in all extremities. Sensory grossly intact. Cerebellar exam normal. Normal gait. Psych: Awake, alert, with orientation to person, place and time. Behavior, mood, and affect are within normal limits. 05:41 Constitutional: The patient appears in no acute distress, alert, awake, uncomfortable. 05:41 Abdomen/GI: Inspection: abdomen appears normal, obese Bowel sounds: normal, in all quadrants, Palpation: moderate abdominal tenderness, in all quadrants, Rectal exam: the exam is deferred, because of patient request, Indicators: McBurney's point is not tender, Yost's sign is negative, Rovsing's sign is negative, Obturator sign is negative, Psoas sign is negative, Liver: no appreciated palpable abnormalities, Hernia: not appreciated. 05:41 Back: pain, is absent, ROM is normal, normal spinal alignment noted, CVA tenderness, that is moderate, is noted on the right, muscle spasm, is not present. Vital Signs: 05:14 BP 135 / 99; Pulse 87; Resp 17; Temp 97.7; Pulse Ox 100% ; Weight 86.18 kg; Pain 10/10; rv 06:33 BP 124 / 89; Pulse 80; Resp 18; Pulse Ox 100% ; ea 07:40 BP 126 / 95; Pulse 64; Resp 18; Pulse Ox 99% on R/A; Pain 7/10; em MDM: 05:31 Patient medically screened. mh7 07:07 Differential diagnosis: nephrolithiasis, pyelonephritis, UTI, diverticulitis, mh7 pancreatitis. Data reviewed: vital signs, nurses notes. Transition of care: After a detail discussion of the patient's case, care is transferred to Malvin Paulson MD. 09:18 Counseling: I had a detailed discussion with the patient and/or guardian regarding: the ma2 historical points, exam findings, and any diagnostic results supporting the discharge/admit diagnosis, the presence of at least one elevated blood pressure reading (>120/80) during this emergency department visit, the need for outpatient follow up. Response to treatment: the patient's symptoms have markedly improved after treatment. ED course: patient feels better pain resolved has mild pancreatitis no need for admission per julio score, she does not drink alcohol, she may have cholelithiasis, however pain resolved and lft is wnl, i reexamined her and abdomin is soft lax no epigastric or RUQ tenderness of murphys sign. therefore she is unlikely to have acute cholecystitis. she want to go home. i advised her to return to er immediately if pain get worse or she develop vomiting or RUQ abd pain so we can do a gall bladder US and recheck lipase. eitherway she will see her pcp in the next week to get gall bladder US and see a surgeon if she has a stone . 12/01 05:19 Order name: Basic Metabolic Panel; Complete Time: 06:12/01 05:19 Order name: CBC with Diff; Complete Time: 06:01 12/01 05:19 Order name: Hepatic Function; Complete Time: :12/01 05:19 Order name: Lipase; Complete Time: : ea 12/01 08:27 Order name: Urine Dipstick--Ancillary (enter results); Complete Time: 09:00 12/01 08:27 Order name: Urine --Ancillary (enter results); Complete Time: 09:00 12/01 05:19 Order name: IV Saline Lock; Complete Time: 05:19 ea 12/01 05:19 Order name: Labs collected and sent; Complete Time: 05:24 ea 12/01 05:33 Order name: Urine Dipstick-Ancillary (obtain specimen); Complete Time: 08:17 [facility] 12/01 06:38 Order name: CT Abd/Pelvis - IV Contrast Only; Complete Time: 09:00 [facility] 12/01 05:33 Order name: Urine Test (obtain specimen); Complete Time: 08:18 7 Administered Medications: 05:38 Drug: NS 0.9% 1000 ml Route: IV; Rate: 1000 ml; Site: right antecubital; ea 09:50 Follow up: IV Status: Completed infusion; IV Intake: 1000ml em 05:38 Drug: Zofran (Ondansetron) 4 mg Route: IVP; Site: right antecubital; ea 06:32 Follow up: Response: No adverse reaction ea 05:38 Drug: Pepcid 20 mg Route: IVP; Site: right antecubital; ea 06:32 Follow up: Response: No adverse reaction ea 05:39 Drug: morphine 4 mg {Note: rass 1.} Route: IVP; Site: right antecubital; ea 06:32 Follow up: Response: No adverse reaction; Pain is decreased; RASS: Alert and Calm (0) ea Disposition: 12/02/19 09:25 Discharged to Home. Impression: Acute pancreatitis. - Condition is Stable. - Discharge Instructions: Acute Pancreatitis. - Prescriptions for Zofran 4 mg Oral Tablet - take 1 tablet by ORAL route every 12 hours As needed; 20 tablet. Diclofenac Sodium 75 mg Oral Tablet Sustained Release - take 1 tablet by ORAL route 2 times per day; 30 tablet. - Medication Reconciliation Form, Thank You Letter, Antibiotic Education, Prescription Opioid Use form. - Follow up: Private Physician; When: Tomorrow; Reason: If symptoms return, Recheck today's complaints, Continuance of care. Signatures: Dispatcher [employer] Catracho Bennett RN Blossom Henry RN Malvin Arroyo ea, MD MD ma2 Kelton Anne RN Vega Hammond MD MD mh7 Corrections: (The following items were deleted from the chart) 09:52 09:25 12/02/2019 09:25 Discharged to Home. Impression: Acute pancreatitis. Condition is em Stable. Forms are Medication Reconciliation Form, Thank You Letter, Antibiotic Education, Prescription Opioid Use. Follow up: Private Physician; When: Tomorrow; Reason: If symptoms return, Recheck today's complaints, Continuance of care. ma2
[2019-12-02 10:25] VITALS: TEMP 97.7
[2019-12-02 10:27] VITALS: BP 126/95; O2SAT 99
== END 2019-12-02 09:52 | disposition home or self-care (01) ==
LOC: ER 05:01
DX: K85.90 Acute pancreatitis without necrosis or infection, unspecified (principal)
CPT/HCPCS: 96361; 85025; 80048; 36415; 81025; 80076; 81003; 83690; 74177; 96375; 96374; 99284; Q9967; J7030; J2405